=== PATIENT | female | born 1995 | race Caucasian/White ===

== ENCOUNTER → 2017-12-05 | Outpatient (CLI) | payer BC ==
--- NOTE | 2017-12-05 16:44 | Diagnostic Imaging Report ---
EXAM: MRI left foot without contrast. DATE: 12/05/2017. INDICATION: 21-year-old female, mass in the region of the left great toe. COMPARISON: None available. TECHNIQUE: Multiple noncontrast MRI sequences of the left foot were obtained. FINDINGS: There is a volar soft tissue mass which is similar in signal intensity to skeletal muscle on T1-weighted sequence and is T2 hyperintense with internal bands of low signal that measures approximately 2.7 x 1.5 cm in axial dimension and 1.7 cm in [id number] extent. The mass directly abuts the volar aspect of the first digit flexor tendon. There is no identified cortical or otherwise noted bone destruction. There is no abnormal signal in the adjacent bone marrow. There is no additional identified soft tissue mass. There is no joint effusion. Joint spaces appear well preserved. The bone marrow signal is unremarkable. Specifically, there is no identified bone lesion. There is no acute fracture. There is no evidence of stress reaction. The Lisfranc ligament proper is intact. The visualized flexor tendons are otherwise intact. The visualized peroneal tendons are intact. The visualized portions of the anterior extensor tendons are intact. IMPRESSION: 1. 2.7 x 1.5 x 1.7 cm mass within the volar soft tissues subjacent to and abutting the volar aspect of the first digit flexor tendon. Although post contrast imaging is not obtained, the mass appears highly likely solid. A giant cell tumor of the tendon sheath is included in the differential diagnosis, particularly given the location. Additional benign and malignant soft tissue neoplasms are in the differential diagnosis. Biopsy and/or excision recommended for definitive diagnosis. Dictated by: Dictated on workstation # [id number]
== END ==
LOC: RAD 14:58
PROVIDERS: ATTEND Orthopaedic Surgery
DX: S80.01XA Contusion of right knee, initial encounter (principal); R22.42 Localized swelling, mass and lump, left lower limb

== ENCOUNTER 2018-10-15 12:35 | Emergency (ER) | payer BC ==
[~2018-10-15] VITALS: Ht 165.1 cm; Wt 52.2 kg
--- NOTE | 2018-10-15 12:43 | ED General ---
General Stated Complaint: PASSED OUT Source of Information: Patient, EMS Exam Limitations: No Limitations History of Present Illness Date Seen by Provider: Oct 15, 2018 Time Seen by Provider: 12:41 Initial Comments To ER per EMS from home with reports of syncope. Patient states that she was sitting down on the couch when things started to go black, she then lost consciousness and states that she was told that she was out for about 60 seconds. At this time she feels mostly back to normal but still generally weak. She denies any sensation of palpitations or tachycardia prior to the syncopal event. No headache nausea vomiting or shortness of breath. 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 Adams. Primary care is Dr. Mora. She has been pretty nauseated for the past week, EMS gave Zofran in route to the hospital and that is now better controlled. No diarrhea and no abdominal pain. No fever or chills. Timing/Duration: 1/2 Hour Severity: Moderate Associated Systoms: Malaise, Syncope Allergies and Home Medications Allergies Coded Allergies: No Allergy Information Available (Unverified , 08/05/15) Patient Home Medication List Home Medication List Reviewed: Yes Review of Systems Review of Systems Constitutional: see HPI EENTM: see HPI Respiratory: no symptoms reported Cardiovascular: no symptoms reported Genitourinary: no symptoms reported Musculoskeletal: see HPI Skin: no symptoms reported Psychiatric/Neurological: No Symptoms Reported Hematologic/Lymphatic: No Symptoms Reported Physical Exam Vital Signs Vital Signs - First Documented 10/15/18 12:37 Temp 97.5 Pulse 96 Resp 16 B/P (MAP) 95/59 (71) Pulse Ox 99 O2 Delivery Room Air Capillary Refill : Height, Weight, BMI Height: 5'5.00" Weight: 111lbs. oz. 50.727294jo; BMI Method: General Appearance: No Apparent Distress, WD/WN Eyes: Bilateral Eye Normal Inspection, Bilateral Eye PERRL, Bilateral Eye EOMI HEENT: PERRL/EOMI, Normal ENT Inspection Neck: Full Range of Motion, Normal Inspection Respiratory: No Accessory Muscle Use, No Respiratory Distress Cardiovascular: Regular Rate, Rhythm, Normal Peripheral Pulses Gastrointestinal: Normal Bowel Sounds, Non Tender, Soft Extremity: Normal Capillary Refill, Normal Inspection Neurologic/Psychiatric: Alert, Oriented x3 Skin: Warm/Dry, Pallor Focused Exam Lactate Level 10/15/18 13:11: Lactic Acid Level 1.66 Lactic Acid Level Laboratory Tests Test 10/15/18 13:11 Lactic Acid Level 1.66 MMOL/L (0.50-2.00) Progress/Results/Core Measures Suspected Sepsis SIRS Temperature: Pulse: Respiratory Rate: Laboratory Tests 10/15/18 12:45: White Blood Count 23.8H Blood Pressure / Mean: 10/15/18 13:11: Lactic Acid Level 1.66 Laboratory Tests 10/15/18 12:45: Creatinine 0.70, Platelet Count 162, Total Bilirubin 0.6 Results/Orders Lab Results Laboratory Tests Test 10/15/18 12:45 10/15/18 13:11 10/15/18 13:46 Range/Units White Blood Count 23.8 H 4.3-11.0 10^3/uL Red Blood Count 2.35 L 4.35-5.85 10^6/uL Hemoglobin 7.8 L 11.5-16.0 G/DL Hematocrit 23 L 35-52 % Mean Corpuscular Volume 98 80-99 FL Mean Corpuscular Hemoglobin 33 25-34 PG Mean Corpuscular Hemoglobin Concent 34 32-36 G/DL Red Cell Distribution Width 18.6 H 10.0-14.5 % Platelet Count 162 130-400 10^3/uL Mean Platelet Volume 9.6 7.4-10.4 FL Neutrophils (%) (Auto) 98 H 42-75 % Lymphocytes (%) (Auto) 2 L 12-44 % Monocytes (%) (Auto) 0 0-12 % Eosinophils (%) (Auto) 0 0-10 % Basophils (%) (Auto) 0 0-10 % Neutrophils # (Auto) 23.4 H 1.8-7.8 X 10^3 Lymphocytes # (Auto) 0.4 L 1.0-4.0 X 10^3 Monocytes # (Auto) 0.0 0.0-1.0 X 10^3 Eosinophils # (Auto) 0.0 0.0-0.3 10^3/uL Basophils # (Auto) 0.0 0.0-0.1 10^3/uL Neutrophils % (Manual) 97 % Lymphocytes % (Manual) 1 % Band Neutrophils 2 % Hypersegmented Neutrophils MODERATE Toxic Granulation 3+ Blood Morphology Comment NORMAL Sodium Level 138 135-145 MMOL/L Potassium Level 3.3 L 3.6-5.0 MMOL/L Chloride Level 103 98-107 MMOL/L Carbon Dioxide Level 23 21-32 MMOL/L Anion Gap 12 5-14 MMOL/L Blood Urea Nitrogen 14 7-18 MG/DL Creatinine 0.70 0.60-1.30 MG/DL Estimat Glomerular Filtration Rate > 60 BUN/Creatinine Ratio 20 Glucose Level 113 H 70-105 MG/DL Calcium Level 8.8 8.5-10.1 MG/DL Corrected Calcium 8.6 8.5-10.1 MG/DL Total Bilirubin 0.6 0.1-1.0 MG/DL Aspartate Amino Transf (AST/SGOT) 64 H 5-34 U/L Alanine Aminotransferase (ALT/SGPT) 71 H 0-55 U/L Alkaline Phosphatase 67 40-136 U/L Total Protein 6.2 L 6.4-8.2 GM/DL Albumin 4.2 3.2-4.5 GM/DL Lactic Acid Level 1.66 0.50-2.00 MMOL/L Urine Color YELLOW Urine Clarity CLEAR Urine pH 5 5-9 Urine Specific Gilbert 1.025 H 1.016-1.022 Urine Protein 2+ H NEGATIVE Urine Glucose (UA) NEGATIVE NEGATIVE Urine Ketones NEGATIVE NEGATIVE Urine Nitrite NEGATIVE NEGATIVE Urine Bilirubin NEGATIVE NEGATIVE Urine Urobilinogen NORMAL NORMAL MG/DL Urine Leukocyte Esterase 1+ H NEGATIVE Urine RBC (Auto) 1+ H NEGATIVE Urine RBC NONE /HPF Urine WBC 5-10 H /HPF Urine Squamous Epithelial Cells 2-5 /HPF Urine Crystals NONE /LPF Urine Bacteria MODERATE H /HPF Urine Casts NONE /LPF Urine Mucus LARGE H /LPF Urine Culture Indicated YES My Orders Orders - LINDA CHAIDEZ APRN Cbc With Automated Diff (10/15/18 12:40) Comprehensive Metabolic Panel (10/15/18 12:40) Ua Culture If Indicated (10/15/18 12:40) Iv Heplock-Insert (Order) (10/15/18 12:40) Ekg Tracing (10/15/18 12:40) Manual Differential (10/15/18 12:45) General/Regular (10/15/18 Lunch) Blood Culture (10/15/18 13:33) Lactic Acid Analyzer (10/15/18 13:33) Ns Iv 1000 Ml (Sodium Chloride 0.9%) (10/15/18 13:45) Potassium Chloride (Tablet) (K Dur Table (10/15/18 13:45) Urine Culture (10/15/18 13:46) Ceftriaxone For Iv Use (Rocephin For I (10/15/18 14:30) Medications Given in ED Current Medications Medications Dose Ordered Sig/Enmanuel Route Start Time Stop Time Status Last Admin Dose Admin Ceftriaxone Sodium 1000 mg/ Sodium Chloride 50 ml @ 100 mls/hr ONCE ONCE IV 10/15/18 14:30 10/15/18 14:59 10/15/18 14:30 100 MLS/HR Potassium Chloride 40 meq ONCE ONCE PO 10/15/18 13:45 10/15/18 13:46 DC 10/15/18 13:59 40 MEQ Vital Signs/I&O 10/15/18 12:37 Temp 97.5 Pulse 96 Resp 16 B/P (MAP) 95/59 (71) Pulse Ox 99 O2 Delivery Room Air Capillary Refill : Departure Communication (Admissions) 1430-blood pressure reached a low of 85/55 while here in the emergency room. After 1 L fluid bolus she is currently at 116/50. Heart rate 92 no ectopy. Oxygen saturation 100% room air and she is afebrile. She is noted to have leukocytosis on CBC but she had a Neulasta injection yesterday. Her hemoglobin on Tuesday of this past week was 8.4, her platelet count was 127. Her AST and ALT were both 27 at that time. She is feeling better but still not back to normal, a bit weaker than usual. I spoke with the on-call hematology oncology physician at the [facility]. States that he would be happy to take the patient in transfer if we felt that was necessary but she could ultimately be discharged home as well. I discussed with the patient and her mother what they would wish to do. They state that she does have an appointment tomorrow at the [facility] for repeat lab work. They're happy to go up today if necessary but are also satisfied with waiting until tomorrow. We devised a plan to observe her here in the emergency room after another hour or so, if blood pressure stays steady and symptoms continue to improve we will discharge to home. If anything changes we will plan with proceeding with transfer to the [facility]. 1427- blood cultures and urine culture is pending. Blood pressure 98/60. Mother states that this is pretty typical for the patient's blood pressure. I discussed the case with Dr. Bernardo. I'll give Rocephin for the urinary tract infection, mother states she does not need a prescription as she has Levaquin at home. Dr. Bernardo agrees with plan of care now that the patient has eaten she states that she feels back to baseline. Impression Primary Impression: Syncope Qualified Codes: R55 - Syncope and collapse Disposition: HOME, SELF-CARE Condition: Stable Departure-Patient Inst. Decision time for Depature: 13:29 Referrals: ENRRIQUE MORA MD (PCP/Family) Primary Care Physician Patient Instructions: Syncope (Fainting) (DC) Add. Discharge Instructions: 1. Start your Levaquin tomorrow morning. Return to the emergency room for any recurrent passing out, or anything else that concerns you. Otherwise keep her appointment with the [facility] tomorrow to repeat labs. LINDA CHAIDEZ APRN Oct 15, 2018 12:43
[2018-10-15 12:57] LABS: BASOPHILS % (AUTO) 0 % (0-10); EOSINOPHILS % (AUTO) 0 % (0-10); HEMATOCRIT 23 % (35-52); HEMOGLOBIN 7.8 G/DL (11.5-16.0); LYMPHOCYTES # (AUTO) 0.4 X 10^3 (1.0-4.0); LYMPHOCYTES % (AUTO) 2 % (12-44); MEAN CORPUSCULAR HEMOGLOBIN 33 PG (25-34); MEAN CORPUSCULAR HGB CONC 34 G/DL (32-36); MEAN CORPUSCULAR VOLUME 98 FL (80-99); MEAN PLATELET VOLUME 9.6 FL (7.4-10.4); MONOCYTES % (AUTO) 0 % (0-12); NEUTROPHILS # (AUTO) 23.4 X 10^3 (1.8-7.8); NEUTROPHILS % (AUTO) 98 % (42-75); PLATELET COUNT 162 10^3/uL (130-400); RED CELL DISTRIBUTION WIDTH 18.6 % (10.0-14.5); WHITE BLOOD COUNT 23.8 10^3/uL (4.3-11.0)
[2018-10-15 13:17] LABS: ALANINE AMINOTRANSFERASE 71 U/L (0-55); ALBUMIN 4.2 GM/DL (3.2-4.5); ALKALINE PHOSPHATASE 67 U/L (40-136); BILIRUBIN,TOTAL 0.6 MG/DL (0.1-1.0); BUN/CREATININE RATIO 20; CALCIUM 8.8 MG/DL (8.5-10.1); CARBON DIOXIDE 23 MMOL/L (21-32); CHLORIDE 103 MMOL/L (98-107); GFR ESTIMATED > 60; GLUCOSE 113 MG/DL (70-105); POTASSIUM 3.3 MMOL/L (3.6-5.0); SODIUM 138 MMOL/L (135-145); TOTAL PROTEIN 6.2 GM/DL (6.4-8.2)
--- NOTE | 2018-10-15 13:20 | NUR ---
FOOD TRAY DELIVERED TO PT ROOM.
[2018-10-15 13:37] LABS: BAND NEUTROPHILS 2 %; LYMPHOCYTES % (MANUAL) 1 %; NEUTROPHILS % (MANUAL) 97 %
[2018-10-15 13:38] LABS: RBC MORPH NORMAL
[2018-10-15 13:39] LABS: HYPERSEGMENTED NEUT MODERATE; TOXIC GRANULATION/VACUOLAZATIO 3+
[2018-10-15] MEDS ORDERED: NS IV 1000 ML 1,000 ML IV SCH (13:45)
[2018-10-15] MEDS ORDERED: KCL 20 MEQ TAB (K-DUR) PO ONE (13:45)
[2018-10-15 13:52] LABS: BILIRUBIN,URINE NEGATIVE (NEGATIVE); CLARITY,URINE CLEAR; COLOR,URINE YELLOW; GLUCOSE, URINE (UA) NEGATIVE (NEGATIVE); KETONES,URINE NEGATIVE (NEGATIVE); LEUKOCYTE ESTERASE ,URINE 1+ (NEGATIVE); NITRITE,URINE NEGATIVE (NEGATIVE); PH,URINE 5 (5-9); PROTEIN,URINE 2+ (NEGATIVE); UROBILINOGEN,URINE NORMAL (NORMAL)
[2018-10-15 14:09] LABS: BACTERIA,URINE MODERATE /HPF
[2018-10-15] MEDS ORDERED: cefTRIAXone FOR IV USE 1,000 MG in NS (IVPB) 50 ML IV ONE (14:30)
[2018-10-15 15:04] VITALS: BP 101/59
== END 2018-10-15 15:04 | disposition home or self-care (01) ==
LOC: EDUNIT# 12:35 → ER 12:36
DX: R55 Syncope and collapse (principal); C40.32 Malignant neoplasm of short bones of left lower limb
CPT/HCPCS: 36415; 80053; 81000; 83605; 85007; 85027; 87040; 87088; 93005; 96361; 96365

== ENCOUNTER 2018-12-04 15:39 | Emergency (ER) | payer BC, MEDICAID ==
[~2018-12-04] VITALS: Ht 165.1 cm; Wt 54.4 kg
--- OUTSIDE RECORDS SUMMARY | 2018-12-04 16:06 | XMS REPORT | Encounter Summary ---
Author Author [facility] Organization [facility] Address Unknown Phone Unavailable Care Team Providers Care Post Production Assistant Name Role Phone Karyn Anderson MD PCP Samuel Kelly DPM 21 Roe Aleman DO Unavailable Reason for Visit * Reason Comments Fever Encounter Details Care Team Description Date [place] [address] [address] Fever 12/04/2018 Telephone [facility] - OP Exam [address] [address] Social History Date Tobacco Use Types Packs/Day Years Used Never Smoker Smokeless Tobacco: Never Used Alcohol Use Drinks/Week oz/Week Comments No Sex Assigned at Date Recorded Not on file Industry Job Start Date Occupation Not on file Not on file Not on file Travel End Travel History Travel Start No recent travel history available. as of this encounter Functional Status Date of Assessment Functional Status Response 11/30/2018 Does the patient have a hearing impairment: No 11/30/2018 Does the patient have a visual impairment: Yes 11/30/2018 Does the patient have impaired ambulation: No 11/30/2018 Does the patient have an activity of daily living No (ADL) impairment: 11/30/2018 Does the patient have an instrumental activity of No daily living (IADL) impairment: Date of Assessment Cognitive Status Response 11/30/2018 Does the patient have a cognitive impairment: No as of this encounter Miscellaneous Notes * Telephone Encounter - Ailin Virgen RN - 12/04/2018 3:02 PM CDT I called Loren, Tyler's mom, after receiving page that Tyler has a fever, nausea, vomiting, diarrhea and unable to eat or drink or take any of her medications. I spoke with mom and Tyler has fever of 101.4 with above symptoms. The entire family has all of these symptoms as well. Reviewed with and patient to go to local ER for evaluation and fluids. in this encounter Plan of Treatment Not on fileas of this encounter Visit Diagnoses Not on filein this encounter
--- OUTSIDE RECORDS SUMMARY | 2018-12-04 16:06 | XMS REPORT | Encounter Summary ---
Author Author [facility] Organization [facility] Address Unknown Phone Unavailable Care Team Providers Care [employer] Revenue Officer Name Role Phone Karyn Anderson MD PCP Samuel Kelly DPM 21 Roe Aleman DO Unavailable Encounter Details Care Team Description Date [place] [address] [address] Arrived 11/30/2018 [facility] - OP Lab [address] [address] Social History Date Tobacco Use Types Packs/Day [...] cognitive impairment: No as of this encounter Plan of Treatment Not on fileas of this encounter Procedures Comments Procedure Name Priority Date/Time Associated Diagnosis CBC AND DIFF Routine 11/30/2018 Rodarte's sarcoma (HCC) 11:26 AM CDT in this encounter Results * CBC AND DIFF (11/30/2018 11:26 AM CDT) White Blood Cells 2.1 (L) 4.5 - 11.0 K/UL [facility] [place] RBC 2.33 (L) 4.0 - 5.0 M/UL [facility] Hemoglobin 7.7 (L) 12.0 - 15.0 GM/DL [facility] Hematocrit 22.3 (L) 36 - 45 % [facility] MCV 95.8 80 - 100 FL [facility] [place] MCH 33.1 26 - 34 PG [facility] [place] MCHC 34.5 32.0 - 36.0 G/DL [facility] RDW 21.2 (H) 11 - 15 % [facility] Platelet Count 45 (L) 150 - 400 K/UL [facility] MPV 8.0 7 - 11 FL [facility] Segmented Neutrophils 29 (L) 41 - 77 % [facility] [place] Bands 10 0 - 10 % [facility] Lymphocytes 20 (L) 24 - 44 % [facility] [place] Monocytes 38 (H) 4 - 12 % [facility] [place] Eosinophil 2 0 - 5 % [facility] [place] Basophil 1 0 - 2 % [facility] [place] HYPO PRESENT [facility] POLY PRESENT [facility] Teardrop PRESENT [facility] [place] Platelet Estimate MOD DEC [facility] [place] Absolute Neutrophil Count 0.82 (L) 1.8 - 7.0 K/UL [facility] Specimen Blood Performing Organization Address City/State/Zipcode Phone Number [facility] [address] [place] [address] in this encounter Visit Diagnoses Diagnosis 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
--- OUTSIDE RECORDS SUMMARY | 2018-12-04 16:06 | XMS REPORT | Encounter Summary ---
Author Author [facility] Organization [facility] Address Unknown Phone Unavailable Care Team Providers Care Wind Field Manager Name Role Phone Karyn Anderson MD PCP Samuel Kelly DPM 21 Roe Aleman DO Unavailable Encounter Details Care Team Description Date [place] [address] [address] 11/30/2018 Orders Only [facility] Center - OP Exam [address] [address] Social History Date Tobacco Use [...]
--- OUTSIDE RECORDS SUMMARY | 2018-12-04 16:06 | XMS REPORT | Clinical Summary ---
Author Author [facility] Organization [facility] Address Unknown Phone Unavailable Care Team Providers Care Patient Access Specialist Name Role Phone Karyn Anderson MD PCP Samuel Kelly DPM 21 Roe Aleman DO Unavailable Source Comments Some departments are not documenting in the electronic medical record. If you do not see the information that you expected, contact Release of Information in the Health Information Management department at [phone] for further assistance in locating additional records.[facility] Allergies Comments Active Allergy Reactions Severity Noted Date Amoxicillin NAUSEA AND Low 04/21/2018 VOMITING Penicillins NAUSEA AND Low 11/19/2014 VOMITING Medications End Date Status Medication Sig Dispensed Refills Start Date Active ibuprofen (ADVIL) 200 mg Take 200 mg 0 tablet by mouth every 6 hours as needed. Active oxyCODONE/acetaminophen Take 1-2 48 tablet 0 (PERCOCET; ENDOCET; tablets by 8 ROXICET) 5/325 mg tablet mouth every 6 hours as needed for Pain Earliest Fill Date: 04/24/18 Active acetaminophen (TYLENOL) Take 325 mg 0 325 mg tablet by mouth every 4 hours as needed for Pain. Active LORazepam (ATIVAN) 0.5 mg Take one 60 tablet 1 tablet tablet by 8 mouth every 6 hours as needed for Nausea (anxiety and insomnia). Active loratadine (CLARITIN) 10 Take 10 mg by 0 mg tablet mouth every morning. Active GLUTAMINE PO Take 1,000 mg 0 by mouth twice daily. Active pyridoxine HCl (vitamin Take 100 mg 0 B6) (VITAMIN B-6 PO) by mouth daily. Active other medication 1 Dose at 0 bedtime daily. CBD 2-4 ML Active traZODone (DESYREL) 50 mg Take one 30 tablet 3 tablet tablet by 8 mouth at bedtime as needed for Sleep. Active doxycycline (VIBRAMYCIN) Take 100 mg 0 100 mg tablet by mouth 8 twice daily. Active lidocaine 2%/zinc oxide Apply 30 g 1 40%(#)Indications: liberally to 8 Rodarte's sarcoma (HCC) perianal area as needed Active acyclovir (ZOVIRAX) 800 Take one 90 tablet 3 mg tabletIndications: tablet by 8 Rodarte's sarcoma (HCC) mouth every 8 hours. Active fluconazole (DIFLUCAN) Take one 10 tablet 1 200 mg tabletIndications: tablet by 8 Mouth lesion mouth daily. Active prednisone (DELTASONE) 50 Take one 5 tablet 3 mg tablet tablet by 9 mouth daily with breakfast. Active OLANZapine (ZYPREXA) 10 TAKE 1 TABLET 12 tablet 5 mg tabletIndications: BY MOUTH AT 9 Rodarte's sarcoma (HCC) BEDTIME DAILY. ON DAYS 1-4 OF EACH CYCLE Active pantoprazole DR Take one 90 tablet 3 (PROTONIX) 40 mg tablet tablet by 9 mouth daily. Active ondansetron (ZOFRAN) 8 mg Take one 30 tablet 5 tabletIndications: tablet by 9 Rodarte's sarcoma (HCC) mouth every 8 hours as needed (nausea and vomiting). Active DIPH/LIDO/ANTACID/NYSTATI Swish and 240 mL 3 N 1:1:1:1 SUSP (COMPOUND) Spit 30 mL by 9 mouth as directed three times daily before meals. Active prochlorperazine maleate Take one 30 tablet 3 (COMPAZINE) 10 mg tablet tablet by 9 mouth every 6 hours as needed for Nausea or Vomiting. Active levoFLOXacin (LEVAQUIN) Take one 10 tablet 3 500 mg tablet tablet by 9 mouth daily. 11/28/2018 Discontinued ondansetron (ZOFRAN) 8 mg Take one 30 tablet 5 tabletIndications: tablet by 8 Rodarte's sarcoma (HCC) mouth every 8 hours as needed (nausea and vomiting). 11/30/2018 Discontinued levoFLOXacin (LEVAQUIN) Take one 10 tablet 0 500 mg tablet tablet by 8 mouth daily. 11/21/2018 Discontinued prochlorperazine maleate TAKE 1 TABLET 30 tablet 0 (COMPAZINE) 10 mg tablet BY MOUTH 9 EVERY 6 HOURS NEEDED FOR NAUSEA OR VOMITING 11/30/2018 Discontinued prochlorperazine maleate TAKE 1 TABLET 30 tablet 0 (COMPAZINE) 10 mg tablet BY MOUTH 9 EVERY 6 HOURS NEEDED FOR NAUSEA OR VOMITING Active Problems Problem Noted Date Canker sores oral 12/01/2018 Overview: On acyclovir tid now Add velvet glove for numbing effect, encourage hydration; hopeful it will improve as her immune system bounces back over next couple days Hold on last cycle of chemo until week of 12/11/18 Genital ulcer, female 07/24/2018 Overview: Likely due to myelosuppression associated with chemo Now on proph acyclovir BID throughout chemo - the few extra weeks around the holidays has resolved this for now, but likely to recur as we continue on chemo in the near future 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 Samuel Kelly and Dr. Karyn Anderson in reference to a lesion found in the left great toe. The patient noticed a very small nodule of her great toe about 1 year ago which she did not pay much attention to. She did move away to college and monitored the lesion. She did return home and felt the mass more than doubled in size. An MRI left foot performed 12/05/17 revealed a 2.7 x 1.5 x 1.7cm mass within the volar soft tissues subjacent to and abutting the volar aspect of the first digit flexor tendon thought potentially to be a giant cell tumor. Dr. 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 Therefore, she was referred to Dr Triplett. On staging scans done 04/14/18, she was found to have 1.5 cm noncalcified pleural-based nodule within the lateral left lower lobe suspicious for pulmonary metastasis with additional tiny subcentimeter nodule within the left upper lobe, small sclerotic lesion within the T8 vertebral body and the right femoral head, as well as thickening of the endometrium with a 1.6 cm rounded cystic-appearing process within the endometrial cavity likely representing a 1st trimester intrauterine with a gestational sac. The patient and family were advised for her to undergo amputation of the left great toe, undertaken 04/27/18, as this tumor was starting to encroach on skin and was uncomfortable for the patient. CIC rearrangement found. She was educated as to the fact that by virtue of this being a malignant small round blue cell tumor the likelihood that she will require chemotherapy (which in first trimester is likely abortogenic is very high). She went to an cost analyst who concurred with the decision to proceed with the surgical resection and chemotherapy for the goal of attacking the disease lianna. She is not very sikhism, and was okay with aborting the , due to her own health concerns; this happened mid Apr 2018. She was interested in fertility preservation techniques, but when she heard about the delay of treatment and the costs required, she opted against it. 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 Staging PET did not show any hypermetabolic activity in the R femoral head or T8 lesion, but did show activity in the two lung nodules. Pre-chemo echo was done 04/28/18 - EF 55%. Rodriguez cath was placed. She started first cycle of chemo, VAC/IE alternating, on 05/08/18. She is attempting interval compressed cycles, but cytopenias have limited that. Admitted to [facility] after 5th cycle, 3rd VAC, due to persistent neutropenic fevers, exquisitely sensitive rash on hands/feet. CT chest done while in-house showed response in both the RADHA (8mm --> 6mm) and L lateral pleural based lung masses (near completely resolved). The T8 lesion was stable, again suggesting less likely to be associated with actual cancer. Sarcoma tumor board discussions at this time suggested continuing chemo for now, but look at consolidative techniques in the future (surgery vs radiation?) She comes back in after cycle of dose-adjusted alternating VAC/IE, (dose-adjusted cytoxan to 1g/m2; etoposide to 100mg/m2 day 1-4 and ifos 1800mg/m2 day 1-4 due to significant cytopenias). In with mother. Planned to finish 14th cycle next week, but her canker sores this week have really set her back. 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 Restaging PET 10/24/18 shows resolution of lateral L lung mass, yet still a small mildly active RADHA nodule; no other obvious signs of disease elsewhere. Echo Oct 2018 shows preserved EF 60%. 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 Reviewed epidemiology, risk factors, staging and prognosis (both of recurrence risk and of survival), then subsequent treatment strategies. Standard of care option is regimen using alternating VAC/IE + G-CSF support, with attempts at interval compression to q2week cycles as tolerated. Side effects have included fatigue, bone marrow suppression, need for blood/platelet transfusions, nausea, hair loss, genital ulcers, tender erythematous rash on hands/feet, admit for neutropenic fevers. Other sxs possible include hemorrhagic cystitis, cardiotoxicity and secondary cancers, amongst others. Hold cycle #14 until 12/11/18, which will be her last cycle for now due to tolerability. Dose-reduced strategy is to allow her to continue pushing forward with chemo. Ordered levaquin to have at home if she starts running fevers. Acyclovir for proph against more ulcer outbreaks. Add velvet glove for mouth sores. Discussed with the patient and all questions fully answered. She will call me if any problems arise. Resolved Problems Problem Noted Date Resolved Date Sarcoma 04/04/2018 05/08/2018 Overview: Added automatically from request for surgery [id number] Encounters Care Team Description Date Type Specialty Isreal Adams MD Fever 12/04/2018 Telephone Oncology Isreal Adams MD Drug-induced anemia (Primary Dx); Canker sores oral; Rodarte's sarcoma (HCC) 11/30/2018 Office Visit Oncology Isreal Adams MD Arrived 11/30/2018 Hospital Oncology Encounter Isreal Adams MD Arrived 11/30/2018 Hospital Lab Encounter Isreal Adams MD 11/30/2018 Orders Only Oncology Isreal Adams MD Rodarte's sarcoma (HCC) 11/28/2018 Refill Oncology Kimberly Salgado, SOCIAL SERVICES DIRECTOR Rodarte's sarcoma (HCC) (Primary Dx) 11/27/2018 Office Visit Oncology Kimberly Salgado, SOCIAL SERVICES DIRECTOR Arrived 11/27/2018 Hospital Lab Encounter Kimberly Salgado, SOCIAL SERVICES DIRECTOR Arrived 11/27/2018 Hospital Oncology Encounter Isreal Adams MD 11/21/2018 Hospital Oncology Encounter Isreal Adams MD 11/21/2018 Refill Oncology Isreal Adams MD Rodarte's tumor (HCC) (Primary Dx); Rodarte's sarcoma (HCC) 11/20/2018 Office Visit Oncology Isreal Adams MD 11/20/2018 Hospital Lab Encounter Isreal Adams MD 11/20/2018 Hospital Oncology Encounter Isreal Adams MD 11/20/2018 Orders Only Oncology Kimberly Salgado, SOCIAL SERVICES DIRECTOR Rodarte's sarcoma (HCC) (Primary Dx) 11/13/2018 Office Visit Oncology Kimberly Salgado, SOCIAL SERVICES DIRECTOR 11/13/2018 Hospital Lab Encounter Kimberly Salgado, SOCIAL SERVICES DIRECTOR 11/13/2018 Hospital Oncology Encounter Isreal Adams MD 11/10/2018 Hospital Oncology Encounter Kimberly Salgado, SOCIAL SERVICES DIRECTOR 11/09/2018 Hospital Lab Encounter Kimberly Salgado, SOCIAL SERVICES DIRECTOR 11/09/2018 Hospital Oncology Encounter Isreal Adams MD Drug-induced anemia (Primary Dx) 11/09/2018 Orders Only Oncology Isreal Adams MD 11/09/2018 Orders Only Oncology Kimberly Salgado, SOCIAL SERVICES DIRECTOR 11/08/2018 Hospital Lab Encounter Kimberly Salgado, SOCIAL SERVICES DIRECTOR 11/08/2018 Hospital Oncology Encounter Kimberly Salgado, SOCIAL SERVICES DIRECTOR 11/07/2018 Hospital Oncology Encounter Kimberly Salgado, SOCIAL SERVICES DIRECTOR Rodarte's sarcoma (HCC) (Primary Dx) 11/06/2018 Office Visit Oncology Kimberly Salgado, SOCIAL SERVICES DIRECTOR 11/06/2018 Hospital Oncology Encounter Kimberly Salgado, SOCIAL SERVICES DIRECTOR 11/06/2018 Hospital Lab Encounter Mehreen Maharaj 11/06/2018 Documentation Oncology Mehreen Maharaj 11/03/2018 Documentation Oncology Kimberly Salgado, SOCIAL SERVICES DIRECTOR Rodarte's sarcoma (HCC) (Primary Dx) 10/30/2018 Office Visit Oncology Isreal Adams MD 10/30/2018 Hospital Oncology Encounter Kimberly Salgado, SOCIAL SERVICES DIRECTOR 10/30/2018 Hospital Lab Encounter Isreal Adams MD 10/26/2018 Hospital Oncology Encounter Isreal Adams MD Rodarte's sarcoma (HCC) (Primary Dx) 10/25/2018 Office Visit Oncology Isreal Adams MD 10/25/2018 Hospital Oncology Encounter Isreal Adams MD Rodarte's sarcoma (HCC) 10/25/2018 Refill Oncology Jessie Coyne MA 10/25/2018 Clinical Oncology Support Isreal Adams MD 10/24/2018 Hospital Cardiology Encounter Isreal Adams MD 10/24/2018 Hospital Lab Encounter Isreal Adams MD 10/24/2018 Hospital Radiology Encounter Isreal Adams MD 10/24/2018 Hospital Oncology Encounter Isreal Adams MD 10/23/2018 Orders Only Oncology Isreal Adams MD 10/20/2018 Refill Oncology Isreal Adams MD Hamlin, Julie, SOCIAL SERVICES DIRECTOR Antineoplastic chemotherapy induced anemia (Primary Dx); Rodarte's sarcoma (HCC) 10/16/2018 Office Visit Oncology Isreal Adams MD 10/16/2018 Hospital Oncology Encounter Isreal Adams MD 10/16/2018 Hospital Lab Encounter Isreal Adams MD Blood Transfusion 10/16/2018 Telephone Oncology Isreal Adams MD 10/14/2018 Hospital Oncology Encounter Isreal Adams MD 10/13/2018 Hospital Oncology Encounter Isreal Adams MD 10/12/2018 Hospital Oncology Encounter Isreal Adams MD 10/11/2018 Hospital Oncology Encounter Isreal Adams MD Rodarte's sarcoma (HCC) (Primary Dx); Genital ulcer, female 10/10/2018 Office Visit Oncology Isreal Adams MD 10/10/2018 Hospital Oncology Encounter Isreal Adams MD 10/10/2018 Hospital Lab Encounter Mehreen Maharaj 10/10/2018 Documentation Oncology Isreal Adams MD 10/05/2018 Orders Only Oncology Kimberly Salgado, SOCIAL SERVICES DIRECTOR Rodarte's sarcoma (HCC) (Primary Dx) 10/02/2018 Office Visit Oncology Kimberly Salgado, SOCIAL SERVICES DIRECTOR 10/02/2018 Hospital Oncology Encounter Kimberly Salgado, SOCIAL SERVICES DIRECTOR 10/02/2018 Hospital Lab Encounter Isreal Adams MD Critical Result 10/02/2018 Telephone Oncology Isreal Adams MD Rodarte's sarcoma (HCC) 09/29/2018 Refill Oncology Isreal Adams MD Appointment 09/28/2018 Telephone Oncology Isreal Adams MD 09/27/2018 Hospital Oncology Encounter Isreal Adams MD 09/26/2018 Hospital Oncology Encounter Isreal Adams MD Genital ulcer, female; Rodarte's sarcoma (HCC) 09/25/2018 Office Visit Oncology Isreal Adams MD 09/25/2018 Hospital Oncology Encounter Isreal Adams MD 09/25/2018 Hospital Lab Encounter FátimaMehreen melgar 09/25/2018 Documentation Oncology Isreal Adams MD 09/22/2018 Orders Only Oncology Isreal Adams MD 09/18/2018 Hospital Lab Encounter Isreal Adams MD 09/18/2018 Hospital Oncology Encounter Isreal Adams MD 09/11/2018 Hospital Oncology Encounter Isreal Adams MD 09/11/2018 Hospital Lab Encounter Isreal Adams MD Transfusion 09/07/2018 Telephone Oncology from Last 3 Months Family History Medical History Relation Name Comments High Cholesterol Maternal Grandfather Hypertension Maternal Grandfather Asthma Maternal Uncle Migraines Mother Cancer-Breast Other Cancer-Colon Other Cancer-Lung Other Arthritis-rheumatoid Paternal Uncle Depression Paternal Uncle High Cholesterol Paternal Uncle Migraines Paternal Uncle Relation Name Status Comments Father Alive Maternal Grandfather Alive Maternal Uncle Alive Mother Alive Other Paternal Uncle Alive Social History Date Tobacco Use Types Packs/Day Years Used Never Smoker Smokeless Tobacco: Never Used Alcohol Use Drinks/Week oz/Week Comments No Sex Assigned at Date Recorded Not on file Industry Job Start Date Occupation Not on file Not on file Not on file Travel End Travel History Travel Start No recent travel history available. Last Filed Vital Signs Time Taken Vital Sign Reading 11/30/2018 11:34 AM CDT Blood Pressure 109/56 11/30/2018 11:34 AM CDT Pulse 96 11/30/2018 11:34 AM CDT Temperature 37.1 C (98.8 F) 11/30/2018 11:34 AM CDT Respiratory Rate 16 11/30/2018 11:34 AM CDT Oxygen Saturation 100% - Inhaled Oxygen - Concentration 11/30/2018 11:34 AM CDT Weight 54.4 kg (120 lb) 11/30/2018 11:34 AM CDT Height 165.1 cm (5' 5") 11/30/2018 11:34 AM CDT Body Mass Index 19.97 Plan of Treatment Health Maintenance Due Date Last Done Comments PHYSICAL (COMPREHENSIVE) 12/15/2003 EXAM HPV VACCINES (1 - Female 12/15/2007 3-dose series) HIV SCREENING 12/15/2011 MENINGOCOCCAL VACCINE 2012 (ACWY,Menactra) (1 - 2-dose series) DTAP/TDAP VACCINES (1 - 2014 Tdap) CERVICAL CANCER SCREENING 2017 INFLUENZA VACCINE 04/19/2018 Implants Device Identifier Shelf Expiration Date Model / Serial / Lot Implanted Type Area Manufactur [id number] 09/18/2019 [id number] / NA / [id number] Tray Catheter 9.5fr .036in 5cm Right: Chest CR BARD Sure[employer]uff [employer]man 2 Lumen - Sna Wall Implanted: Qty: 1 on 04/27/2018 by Maurice Jackson MD Procedures Comments Procedure Name Priority Date/Time Associated Diagnosis CBC AND DIFF Routine 11/30/2018 Rodarte's sarcoma (HCC) 11:26 AM CDT COMPREHENSIVE METABOLIC Routine 11/27/2018 Rodarte's sarcoma (HCC) PANEL 2:46 PM CDT CBC AND DIFF Routine 11/27/2018 Rodarte's sarcoma (HCC) 2:46 PM CDT CBC AND DIFF Routine 11/20/2018 Rodarte's tumor (HCC) 8:45 AM DCS ENGINEER COMPREHENSIVE METABOLIC Routine 11/20/2018 Rodarte's tumor (HCC) PANEL 8:45 AM DCS ENGINEER COMPREHENSIVE METABOLIC Routine 11/13/2018 Rodarte's sarcoma (HCC) PANEL 11:38 AM DCS ENGINEER CBC AND DIFF Routine 11/13/2018 Rodarte's sarcoma (HCC) 11:38 AM DCS ENGINEER POC GLUCOSE 11/10/2018 8:18 AM DCS ENGINEER CBC AND DIFF Routine 11/09/2018 Rodarte's sarcoma (HCC) 10:13 AM DCS ENGINEER URINALYSIS DIPSTICK Routine 11/08/2018 Rodarte's sarcoma (HCC) 10:12 AM DCS ENGINEER COMPREHENSIVE METABOLIC Routine 11/06/2018 Rodarte's sarcoma (HCC) PANEL 8:39 AM DCS ENGINEER CBC AND DIFF Routine 11/06/2018 Rodarte's sarcoma (HCC) 8:39 AM DCS ENGINEER COMPREHENSIVE METABOLIC Routine 10/30/2018 Rodarte's sarcoma (HCC) PANEL 8:17 AM DCS ENGINEER CBC AND DIFF Routine 10/30/2018 Rodarte's sarcoma (HCC) 8:17 AM DCS ENGINEER 2-D + DOPPLER Routine 10/24/2018 Rodarte's sarcoma (HCC) ECHOCARDIOGRAM 10:10 AM DCS ENGINEER NM PET SCAN WHOLEBODY Routine 10/24/2018 Rodarte's sarcoma (HCC) (HEAD-TOES) 8:13 AM DCS ENGINEER COMPREHENSIVE METABOLIC Routine 10/24/2018 Rodarte's sarcoma (HCC) PANEL 7:56 AM DCS ENGINEER CBC AND DIFF Routine 10/24/2018 Rodarte's sarcoma (HCC) 7:56 AM DCS ENGINEER POC GLUCOSE 10/24/2018 6:53 AM DCS ENGINEER COMPREHENSIVE METABOLIC Routine 10/16/2018 Rodarte's sarcoma (HCC) PANEL 12:35 PM DCS ENGINEER CBC AND DIFF Routine 10/16/2018 Rodarte's sarcoma (HCC) 12:35 PM DCS ENGINEER COMPREHENSIVE METABOLIC Routine 10/10/2018 Rodarte's sarcoma (HCC) PANEL 8:26 AM DCS ENGINEER CBC AND DIFF Routine 10/10/2018 Rodarte's sarcoma (HCC) 8:26 AM DCS ENGINEER COMPREHENSIVE METABOLIC Routine 10/02/2018 Rodarte's sarcoma (HCC) PANEL 2:47 PM DCS ENGINEER CBC AND DIFF Routine 10/02/2018 Rodarte's sarcoma (HCC) 2:47 PM DCS ENGINEER COMPREHENSIVE METABOLIC Routine 09/25/2018 Rodarte's sarcoma (HCC) PANEL 8:44 AM DCS ENGINEER CBC AND DIFF Routine 09/25/2018 Rodarte's sarcoma (HCC) 8:44 AM DCS ENGINEER CBC AND DIFF Routine 09/18/2018 Rodarte's sarcoma (HCC) 9:33 AM DCS ENGINEER COMPREHENSIVE METABOLIC Routine 09/18/2018 Rodarte's sarcoma (HCC) PANEL 9:33 AM DCS ENGINEER COMPREHENSIVE METABOLIC Routine 09/11/2018 Rodarte's sarcoma (HCC) PANEL 9:06 AM DCS ENGINEER CBC AND DIFF Routine 09/11/2018 Rodarte's sarcoma (HCC) 9:06 AM DCS ENGINEER from Last 3 Months Results * CBC AND DIFF (11/30/2018 11:26 AM CDT) Only the most recent of 14 results within the time period is included. White Blood Cells 2.1 (L) 4.5 - 11.0 K/UL [facility] [place] RBC 2.33 (L) 4.0 - 5.0 M/UL [facility] [place] Hemoglobin 7.7 (L) 12.0 - 15.0 GM/DL [facility] [place] Hematocrit 22.3 (L) 36 - 45 % [facility] [place] MCV 95.8 80 - 100 FL [facility] [place] MCH 33.1 26 - 34 PG [facility] [place] MCHC 34.5 32.0 - 36.0 G/DL [facility] RDW 21.2 (H) 11 - 15 % [facility] [place] Platelet Count 45 (L) 150 - 400 K/UL [facility] [place] MPV 8.0 7 - 11 FL [facility] [place] Segmented Neutrophils 29 (L) 41 - 77 % [facility] [place] Bands 10 0 - 10 % [facility] [place] Lymphocytes 20 (L) 24 - 44 % [facility] Monocytes 38 (H) 4 - 12 % [facility] Eosinophil 2 0 - 5 % [facility] Basophil 1 0 - 2 % [facility] HYPO PRESENT [facility] POLY PRESENT [facility] Teardrop PRESENT [facility] [place] Platelet Estimate MOD DEC [facility] [place] Absolute Neutrophil Count 0.82 (L) 1.8 - 7.0 K/UL [facility] Specimen Blood Performing Organization Address City/State/Zipcode Phone Number [facility] [id number] [place] [address] * COMPREHENSIVE METABOLIC PANEL (11/27/2018 2:46 PM CDT) Only the most recent of 12 results within the time period is included. Sodium 139 137 - 147 MMOL/L [facility] Potassium 3.6 3.5 - 5.1 MMOL/L [facility] Chloride 105 98 - 110 MMOL/L [facility] Glucose 117 (H) 70 - 100 MG/DL [facility] Blood Urea Nitrogen 6 (L) 7 - 25 MG/DL [facility] Creatinine 0.43 0.4 - 1.00 MG/DL [facility] Calcium 9.3 8.5 - 10.6 MG/DL [facility] Total Protein 6.0 6.0 - 8.0 G/DL [facility] Total Bilirubin 0.6 0.3 - 1.2 MG/DL [facility] Albumin 4.3 3.5 - 5.0 G/DL [facility] Alk Phosphatase 103 25 - 110 U/L [facility] AST (SGOT) 37 7 - 40 U/L [facility] CO2 29 21 - 30 MMOL/L [facility] ALT (SGPT) 42 7 - 56 U/L [facility] Anion Gap 5 3 - 12 [facility] eGFR Non >60 >60 mL/min [facility] Comment: The eGFR is not validated for use in drug dosing adjustments.Continue to use estimated creatinine clearance per dosing reference text.Please contact the Clinical Pharmacist for questions. eGFR >60 >60 mL/min [facility] Comment: The eGFR is not validated for use in drug dosing adjustments.Continue to use estimated creatinine clearance per dosing reference text.Please contact the Clinical Pharmacist for questions. Specimen Blood Performing Organization Address City/[facility]/Zipcode Phone Number [facility] [address] [place] [address] * POC GLUCOSE (11/10/2018 8:18 AM DCS ENGINEER) Only the most recent of 2 results within the time period is included. Glucose, POC 87 70 - 100 MG/DL [facility] Performing Organization Address [facility] Phone Number [facility] [address] [place] [address] * URINALYSIS DIPSTICK (11/08/2018 10:12 AM DCS ENGINEER) Color,UA YELLOW [facility] [place] Turbidity,UA CLEAR CLEAR-CLEAR [facility] [place] Specific [place]-Urine 1.015 1.003 - 1.035 [facility] [place] pH,UA 6.5 5.0 - 8.0 [facility] [place] Protein,UA NEG NEG-NEG [facility] [place] Glucose,UA NEG NEG-NEG [facility] [place] Ketones,UA 1+ (A) NEG-NEG [facility] [place] Bilirubin,UA NEG NEG-NEG [facility] [place] Blood,UA NEG NEG-NEG [facility] [place] Urobilinogen,UA NORMAL NORM-NORMAL [facility] [place] Nitrite,UA NEG NEG-NEG [facility] [place] Leukocytes,UA NEG NEG-NEG [facility] [place] Specimen Urine - Urine Performing Organization Address [facility]/Zipcode Phone Number [facility] [place] [address] [phone] * 2-D + DOPPLER ECHOCARDIOGRAM (10/24/2018 10:10 AM DCS ENGINEER) IVS 0.54 0.6 - 0.9 cm OTHER OUTSIDE LAB LVIDD 4.60 3.8 - 5.2 cm OTHER OUTSIDE LAB LVIDS 2.99 2.2 - 3.5 cm OTHER OUTSIDE LAB PW 0.69 0.6 - 0.9 cm OTHER OUTSIDE LAB TDI e' 0.15 m/s OTHER OUTSIDE LAB Right Ventricular Mid 3.06 1.9 - 3.5 cm OTHER OUTSIDE LAB Diameter LA size 2.90 2.7 - 3.8 cm OTHER OUTSIDE LAB LA volume 36.47 22 - 52 mL OTHER OUTSIDE LAB Right Atrial Area 12.48 <18 cm2 OTHER OUTSIDE LAB Right Atrial Major 4.07 2.2 - 2.8 cm OTHER OUTSIDE LAB Dimension AV peak velocity 1.19 m/s OTHER OUTSIDE LAB MV Peak A Regulo 0.60 m/s OTHER OUTSIDE LAB MV Peak E Regulo PW 0.84 m/s OTHER OUTSIDE LAB Right Ventricular Basal 3.40 2.5 - 4.1 cm OTHER OUTSIDE LAB Diameter Right Heart Systolic 2.26 >1.7 cm OTHER OUTSIDE LAB Mmode TAPSE Sinus 2.59 2.7 - 3.3 cm OTHER OUTSIDE LAB BSA 1.56 m2 OTHER OUTSIDE LAB Referring Provider Isreal Adams OTHER OUTSIDE LAB FS 35.00 28 - 44 % OTHER OUTSIDE LAB EF 59.50 % OTHER OUTSIDE LAB LV mass 84.48 66 - 150 g OTHER OUTSIDE LAB RWT 0.30 <=0.42 OTHER OUTSIDE LAB E/A ratio 1.40 OTHER OUTSIDE LAB TV rest pulmonary artery 13 mmHg OTHER OUTSIDE LAB pressure E/E' ratio 5.60 OTHER OUTSIDE LAB Right Heart Systolic TDI 0.146 m/s OTHER OUTSIDE LAB S' Left Atrium Index 23.38 16 - 34 OTHER OUTSIDE LAB Cardiology Ultrasound Siemens [id number] OTHER OUTSIDE LAB Machine Left Ventricle Mass Index 54.15 44 - 88 g/m2 OTHER OUTSIDE LAB ECHO EF 60 % OTHER OUTSIDE LAB Narrative Performed At OTHER OUTSIDE LAB Normal left ventricular contractility.Estimated LVEF 60%. Normal RV contractility. Normal valvular structures.Trace mitral, tricuspid, and pulmonic regurgitation.Estimated PA pressure 14 mmHg. Trivial pericardial effusion. No prior study available for comparison. Performing Organization Address City/State/Zipcode Phone Number OTHER OUTSIDE LAB * NM PET SCAN WHOLEBODY (HEAD-TOES) (10/24/2018 8:13 AM DCS ENGINEER) Impressions Performed At 1.Prior left great toe amputation with low-grade FDG uptake along the [facility] resection margin which is likely post therapeutic in nature. 2. Resolution of dominant left lower lobe pulmonary metastasis. 3. Redemonstration of small, indeterminate left upper lobe pulmonary nodule which continues to demonstrate mild hypermetabolic activity. This lesion appears to have increased in size in comparison to the oldest available CT chest examination from March 2018. This may be due to true progression of the nodule versus pseudo progression due to differences in slice acquisition between the 2 examinations. Additionally, this lesion is incompletely characterized by PET imaging due to its small size. Continued attention to this lesion on follow- up imaging is recommended. By my electronic signature, I attest that I have personally reviewed the images for this examination and formulated the interpretations and opinions expressed in this report Finalized by Sony Chan D.O. on 10/24/2018 12:14 PM. Dictated by Td Lincoln M.D. on 10/24/2018 8:52 AM. Narrative Performed At CT PET SCAN WHOLE BODY (HEAD-TOES) [facility] Radiopharmaceutical: 11.5 mCi F-18 Fluorodeoxyglucose (FDG) IV. Clinical Indication: Rodarte sarcoma. Technique: PET imaging was performed from the vertex to the toes 70 minutes after tracer administration. Low dose non-contrast CT imaging was performed for attenuation correction and localization purposes. Current mean hepatic SUV (reported for manager quality purposes) is 2.4. Blood glucose level (at the time of radiopharmaceutical administration): 85 mg/dL Comparison: Whole-body PET/CT May 05, 2018 FINDINGS: Head/Neck: No suspicious hypermetabolic lesion(s). Chest: Small mildly hypermetabolic nodule within the left upper lobe is redemonstrated, with a max SUV of 2.0, previously 2.1. This lesion measures up to 0.[address] image 114. In the oldest available comparison study CT scan of the chest from March 2018, this same nodule measured 0.3 cm. The dominant left lower lobe pulmonary metastasis is no longer visualized. Abdomen/Pelvis: No suspicious hypermetabolic lesion(s). Osseous Structures: Unchanged small sclerotic focus within the T8 vertebral body, without associated hypermetabolic activity, most compatible with a small bone island. No suspicious hypermetabolic osseous lesion. There has been development of diffuse increased FDG uptake throughout the axial and proximal appendicular skeleton likely representing physiologic marrow response to chemotherapy. Extremities: Prior left great toe amputation. Mild hypermetabolic activity at the resection margin, likely postoperative. Additional CT findings: Right IJ CVC. Procedure Note Interface, Radiant Results - 10/24/2018 12:19 PM DCS ENGINEER NM PET SCAN WHOLE BODY (HEAD-TOES) Radiopharmaceutical: 11.5 mCi F-18 Fluorodeoxyglucose (FDG) IV. Clinical Indication: Rodarte sarcoma. Technique: PET imaging was performed from the vertex to the toes 70 minutes after tracer administration. Low dose non-contrast CT imaging was performed for attenuation correction and localization purposes. Current mean hepatic SUV ( reported for manager quality purposes) is 2.4. Blood glucose level (at the time of radiopharmaceutical administration): 85 mg/ dL Comparison: Whole-body PET/CT May 05, 2018 FINDINGS: Head/Neck: No suspicious hypermetabolic lesion(s). Chest: Small mildly hypermetabolic nodule within the left upper lobe is redemonstrated, with a max SUV of 2.0, previously 2.1. This lesion measures up to 0.[address] image 114. In the oldest available comparison study CT scan of the chest from March 2018, this same nodule measured 0.3 cm. The dominant left lower lobe pulmonary metastasis is no longer visualized. Abdomen/Pelvis: No suspicious hypermetabolic lesion(s). Osseous Structures: Unchanged small sclerotic focus within the T8 vertebral body , without associated hypermetabolic activity, most compatible with a small bone island. No suspicious hypermetabolic osseous lesion. There has been development of diffuse increased FDG uptake throughout the axial and proximal appendicular skeleton likely representing physiologic marrow response to chemotherapy. Extremities: Prior left great toe amputation. Mild hypermetabolic activity at the resection margin, likely postoperative. Additional CT findings: Right IJ CVC. IMPRESSION 1. Prior left great toe amputation with low-grade FDG uptake along the resection margin which is likely post therapeutic in nature. 2. Resolution of dominant left lower lobe pulmonary metastasis. 3. Redemonstration of small, indeterminate left upper lobe pulmonary nodule which continues to demonstrate mild hypermetabolic activity. This lesion appears to have increased in size in comparison to the oldest available CT chest examination from March 2018. This may be due to true progression of the nodule versus pseudo progression due to differences in slice acquisition between the 2 examinations. Additionally, this lesion is incompletely characterized by PET imaging due to its small size. Continued attention to this lesion on follow-up imaging is recommended. By my electronic signature, I attest that I have personally reviewed the images for this examination and formulated the interpretations and opinions expressed in this report Finalized by Sony Chan D.O. on 10/24/2018 12:14 PM. Dictated by Td Lincoln M.D. on 10/24/2018 8:52 AM. Performing Organization Address City/State/Zipcode Phone Number [facility] from Last 3 Months Insurance Payer Benefit Subscriber ID Type Phone Address Plan / Group BCBS [facility] xxxxxxxxxxxx PPO [facility] MEDICAID [facility] xxxxxxxxxxx Medicaid [place] Advance Directives Patient has advance care planning documents, and code status on file. For more information, please contact: [facility] [address] [place] [address] Date Inactivated Comments Code Status Date Activated 04/27/2018 8:23 PM Full Code 04/26/2018 9:23 AM Provider has discussed Code Status No, discussion not w/Patient or Family? necessary based on Dx
--- OUTSIDE RECORDS SUMMARY | 2018-12-04 16:06 | XMS REPORT | Encounter Summary ---
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 Refill [facility] - OP Exam [address] [address] Social History Date Tobacco Use [...] Status Date of Assessment Functional Status Response 11/27/2018 Does the patient have a hearing impairment: No 11/27/2018 Does the patient have a visual impairment: Yes 11/27/2018 Does the patient have impaired ambulation: No 11/27/2018 Does the patient have an activity of daily living No (ADL) impairment: 11/27/2018 Does the patient have an instrumental activity of No daily living (IADL) impairment: Date of Assessment Cognitive Status Response 11/27/2018 Does the patient have a cognitive impairment: No as of this encounter Miscellaneous Notes * Telephone Encounter - Renee Curran RN - 11/28/2018 3:15 PM CDT Received mychart message for Zofran refill. Patient stated needs refilled at [facility]. Refill done. 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
--- OUTSIDE RECORDS SUMMARY | 2018-12-04 16:06 | XMS REPORT | Encounter Summary ---
Author Author [facility] Organization [facility] Address Unknown Phone Unavailable Care Team Providers Care Driller Operator Name Role Phone Karyn Anderson MD PCP Samuel Kelly DPM 21 Roe Aleman DO Unavailable Reason for Visit * Reason Comments Heme/Onc Care Encounter Details Care Team Description [place] [address] [address] Arrived 11/30/2018 [facility] - OP Treatment [address] [phone] Social History Date Tobacco Use [...] cognitive impairment: No as of this encounter Discharge Instructions * Patient Instructions* Marisela Martins RN - 11/30/2018 12:57 PM CDT Call Immediately to report the following: Uncontrolled nausea and/or vomiting, uncontrolled pain, or unusual bleeding. Temperature of 100.4 F or greater and/or any sign/symptom of infection (redness , warmth, tenderness) Painful mouth or difficulty swallowing Red, cracked, or painful hands and/or feet Diarrhea Swelling of arms or legs Rash Important Phone Numbers: OP Cancer Center Main Number (answered 24 hours a day) [phone] Cancer Center Scheduling (appointments) [phone] [id number] [facility] (for nutritional supplements) [phone] in this encounter Plan of Treatment Not on fileas of this encounter Visit Diagnoses Not on filein this encounter
--- OUTSIDE RECORDS SUMMARY | 2018-12-04 16:06 | XMS REPORT | Encounter Summary ---
Author Author [facility] Organization [facility] Address Unknown Phone Unavailable Care Team Providers Care Taxicab Dispatcher Name Role Phone Karyn Anderson MD PCP Samuel Kelly DPM 21 Roe Aleman DO Unavailable Reason for Visit * Reason Comments Heme/Onc Care Encounter Details Care Team Description [place] [address] [address] Drug-induced anemia (Primary Dx); Canker sores oral; Rodarte's sarcoma (HCC) 11/30/2018 Office Visit [facility] - OP Exam [address] [address] Social History Date Tobacco Use Types Packs/Day Years Used Never Smoker Smokeless Tobacco: Never Used Alcohol Use Drinks/Week oz/Week Comments No Sex Assigned at Date Recorded Not on file Industry Job Start Date Occupation Not on file Not on file Not on file Travel End Travel History Travel Start No recent travel history available. as of this encounter Last Filed Vital Signs Time Taken Vital [...] 11:34 AM CDT Body Mass Index 19.97 in this encounter Functional Status Date of Assessment [...] cognitive impairment: No as of this encounter Progress Notes * Isreal Adams MD - 11/30/2018 11:40 AM CDT Name: Evelin Mancilla : 1995 AGE: 22 y.o. DATE OF SERVICE: 11/30/2018 Subjective: Reason for Visit: Heme/Onc Care Evelin Mancilla is a 22 y.o. female. Cancer Staging Rodarte's sarcoma (HCC) Staging form: Bone - Appendicular Skeleton, Trunk, Skull, And Facial Bones, AJCC 8th Edition - Clinical: cM1a - Signed by Isreal Adams MD on 06/05/2018 History of Present IllnessAt 22 yrs old, she presented in consultation [...] 02/21/2018, pathology revealing a poorly differentiated neoplasm, [facility] consultation called it a small round blue [...] is very high). She went to an compound machine operator who concurred with the decision to proceed with the surgical resection and chemotherapy for the goal of attacking the disease lianna. She is not very jew, and was okay with aborting the , [...] but cytopenias have limited that. Admitted to [facility] after 5th cycle, 3rd VAC, due to persistent neutropenic fevers , exquisitely sensitive rash on hands/feet. CT chest done while in-house showed response in both the RADHA (8mm --> 6mm) and L lateral pleural based lung masses ( near completely resolved). The T8 lesion was stable, again suggesting less likely to be associated with actual cancer. Sarcoma tumor board discussions at this time suggested continuing chemo for now , but look at consolidative techniques in the future (surgery vs radiation?) She comes back in after 13th cycle of dose-adjusted alternating VAC/IE, (dose- adjusted cytoxan to 1g/m2; etoposide to 100mg/m2 day 1-4 and ifos 1800mg/m2 day 1-4 due to significant cytopenias). In with mother. Planned to finish 14th cycle next week, but her canker sores this week have really set her back. She is p[retty miserable right now due to mouth, can hardly eat/drink anything. Feels like she needs another PRBC transfusion as she is worn down again. 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 Restaging PET 10/24/18 shows resolution of lateral L lung mass, yet still a small mildly active RADHA nodule; no other obvious signs of disease elsewhere. Echo Oct 2018 shows preserved EF 60%. Review of Systems Constitutional: Positive for activity change, appetite change and fatigue. Negative for unexpected weight change. HENT: Positive for mouth sores, sore throat and trouble swallowing. Eyes: Negative. Negative for visual disturbance. Respiratory: Negative. Negative for shortness of breath. Cardiovascular: Negative. Negative for chest pain and leg swelling. Gastrointestinal: Negative. Negative for abdominal pain, diarrhea, nausea and vomiting. Endocrine: Negative. Genitourinary: Negative. Musculoskeletal: Negative. Negative for arthralgias and myalgias. Skin: Negative. Negative for rash. Allergic/Immunologic: Negative. Neurological: Negative. Negative for weakness, numbness and headaches. Hematological: Negative. Negative for adenopathy. Does not bruise/bleed easily. Psychiatric/Behavioral: Negative for decreased concentration, self-injury and sleep disturbance. All other systems reviewed and are negative. Objective: acetaminophen (TYLENOL) 325 mg tablet Take 325 mg by mouth every 4 hours as needed for Pain. acyclovir (ZOVIRAX) 800 mg tablet Take one tablet by mouth every 8 hours. doxycycline (VIBRAMYCIN) 100 mg tablet Take 100 mg by mouth twice daily. fluconazole (DIFLUCAN) 200 mg tablet Take one tablet by mouth daily. GLUTAMINE PO Take 1,000 mg by mouth twice daily. ibuprofen (ADVIL) 200 mg tablet Take 200 mg by mouth every 6 hours as needed. levoFLOXacin (LEVAQUIN) 500 mg tablet Take one tablet by mouth daily. lidocaine 2%/zinc oxide 40%(#) Apply liberally to perianal area as needed loratadine (CLARITIN) 10 mg tablet Take 10 mg by mouth every morning. LORazepam (ATIVAN) 0.5 mg tablet Take one tablet by mouth every 6 hours as needed for Nausea (anxiety and insomnia). OLANZapine (ZYPREXA) 10 mg tablet TAKE 1 TABLET BY MOUTH AT BEDTIME DAILY. ON DAYS 1-4 OF EACH CYCLE ondansetron (ZOFRAN) 8 mg tablet Take one tablet by mouth every 8 hours as needed (nausea and vomiting). other medication 1 Dose at bedtime daily. CBD 2-4 ML oxyCODONE/acetaminophen (PERCOCET; ENDOCET; ROXICET) 5/325 mg tablet Take 1- 2 tablets by mouth every 6 hours as needed for Pain Earliest Fill Date: 04/24/[address] (PROTONIX) 40 mg tablet Take one tablet by mouth daily. prednisone (DELTASONE) 50 mg tablet Take one tablet by mouth daily with breakfast. prochlorperazine maleate (COMPAZINE) 10 mg tablet TAKE 1 TABLET BY MOUTH EVERY 6 HOURS NEEDED FOR NAUSEA OR VOMITING pyridoxine HCl (vitamin B6) (VITAMIN B-6 PO) Take 100 mg by mouth daily. traZODone (DESYREL) 50 mg tablet Take one tablet by mouth at bedtime as needed for Sleep. Vitals: 11/30/18 1134 BP: 109/56 Pulse: 96 Resp: 16 Temp: 37.1 C (98.8 F) TempSrc: Oral SpO2: 100% Weight: 54.4 kg (120 lb) Height: 165.1 cm (65") Body mass index is 19.97 kg/m. Pain Score: Seven Pain Loc: Mouth Fatigue Scale: 0-None Pain Addressed: Prescription provided for pain management Patient Evaluated for a Clinical Trial: No treatment clinical trial available for this patient. Eastern Cooperative Oncology Group performance status is 1, Restricted in physically strenuous activity but ambulatory and able to carry out work of a light or sedentary nature, e.g., light house work, office work. Physical Exam Constitutional: She is oriented to person, place, and time. She appears well- developed and well-nourished. No distress. HENT: Head: Atraumatic. Mouth/Throat: No oropharyngeal exudate. Shaved head Mouth sores bad right now, especially bottom R lip Has rash on R nares too Eyes: EOM are normal. No scleral icterus. Neck: Neck supple. Cardiovascular: Normal rate and regular rhythm. No murmur heard. Pulmonary/Chest: Effort normal and breath sounds normal. No respiratory distress. She has no wheezes. Abdominal: Soft. Bowel sounds are normal. She exhibits no distension and no mass. Genitourinary: Genitourinary Comments: Deferred genital exam today Musculoskeletal: Normal range of motion. She exhibits deformity (L great toe amputation - healed well). She exhibits no edema. Lymphadenopathy: She has no cervical adenopathy. Neurological: She is alert and oriented to person, place, and time. No cranial nerve deficit. Coordination normal. Skin: Skin is warm and dry. No rash (hands/feet rash has completely resolved) noted. No pallor. Typical nail changes from chemo, although R big toe nail fell off and has yet to scab over Psychiatric: She has a normal mood and affect. Her behavior is normal. Judgment and thought content normal. CBC w diff Lab Results Component Value Date/Time WBC 2.1 (L) 11/30/2018 11:26 AM RBC 2.33 (L) 11/30/2018 11:26 AM HGB 7.7 (L) 11/30/2018 11:26 AM HCT 22.3 (L) 11/30/2018 11:26 AM MCV 95.8 11/30/2018 11:26 AM MCH 33.1 11/30/2018 11:26 AM MCHC 34.5 11/30/2018 11:26 AM RDW 21.2 (H) 11/30/2018 11:26 AM PLTCT 45 (L) 11/30/2018 11:26 AM MPV 8.0 11/30/2018 11:26 AM Lab Results Component Value Date/Time NEUT 58 11/27/2018 02:46 PM ANC 0.82 (L) 11/30/2018 11:26 AM ANC 0.50 (L) 11/27/2018 02:46 PM LYMA 27 11/27/2018 02:46 PM ALC 0.20 (L) 11/27/2018 02:46 PM JADE 12 11/27/2018 02:46 PM AMC 0.10 11/27/2018 02:46 PM EOSA 2 11/27/2018 02:46 PM AEC 0.00 11/27/2018 02:46 PM BASA 1 11/27/2018 02:46 PM ABC 0.00 11/27/2018 02:46 PM Assessment and Plan: Problem Canker Sores Oral On acyclovir tid now Add velvet glove for numbing effect, encourage hydration; hopeful it will improve as her immune system bounces back over next couple days Hold on last cycle of chemo until week of 12/11/18 Rodarte's Sarcoma (Hcc) At 22 yrs old, she presented in [...] 02/21/2018, pathology revealing a poorly differentiated neoplasm, [facility] consultation called it a small round blue [...] is very high). She went to an compound machine operator who concurred with the decision to proceed with the surgical resection and chemotherapy for the goal of attacking the disease lianna. She is not very jew, and was okay with aborting the , [...] but cytopenias have limited that. Admitted to [facility] after 5th cycle, 3rd VAC, due to persistent neutropenic fevers , exquisitely sensitive rash on hands/feet. CT chest done while in-house showed response in both the RADHA (8mm --> 6mm) and L lateral pleural based lung masses ( near completely resolved). The T8 lesion was stable, again suggesting less likely to be associated with actual cancer. Sarcoma tumor board discussions at this time suggested continuing chemo for now , but look at consolidative techniques in the future (surgery vs radiation?) She comes back in after 13th cycle of dose-adjusted alternating VAC/IE, (dose- adjusted cytoxan to 1g/m2; etoposide to 100mg/m2 day 1-4 and ifos 1800mg/m2 day 1-4 due to significant cytopenias). In with mother. Planned to finish 14th cycle next week, but her canker sores this week have really set her back. Genital ulcers and hemorrhoids have been major issues throughout, and chemo- induced anemia has required multiple blood transfusions to [...] resection 04/26/18, with concerning L lung nodules ( one resolved, one stable) and questionable T8 and R femoral head bone lesions ( although MRI thoracic spine looked more benign and [...] will call me if any problems arise. Set her up for another PRBC transfusion tomorrow due to symptomatic anemia <8g/ dL. 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
--- OUTSIDE RECORDS SUMMARY | 2018-12-04 16:06 | XMS REPORT | Encounter Summary ---
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 Office Visit [facility] - OP Exam [id number] [address] Social History Date Tobacco Use [...] Vital Signs Time Taken Vital Sign Reading 11/27/2018 2:47 PM CDT Blood Pressure 105/63 11/27/2018 2:47 PM CDT Pulse 91 11/27/2018 2:47 PM CDT Temperature 36.7 C (98.1 F) 11/27/2018 2:47 PM CDT Respiratory Rate 16 11/27/2018 2:47 PM CDT Oxygen Saturation 100% - Inhaled Oxygen - Concentration 11/27/2018 2:47 PM CDT Weight 55.2 kg (121 lb 12.8 oz) 11/27/2018 2:47 PM CDT Height 165.1 cm (5' 5") 11/27/2018 2:47 PM CDT Body Mass Index 20.27 in this encounter Functional Status Date of [...] as of this encounter Progress Notes * Kimebrly Salgado APRN - 11/27/2018 3:00 PM CDT Name: Evelin Mancilla : 1995 AGE: 22 y.o. DATE OF SERVICE: 11/27/2018 Subjective: Reason for Visit: Heme/Onc Care Evelin Mancilla is a 22 y.o. female. Cancer Staging Rodarte's sarcoma (HCC) Staging form: Bone - Appendicular Skeleton, Trunk, Skull, And Facial Bones, AJCC 8th Edition - Clinical: [id number] - Signed by Isreal Adams MD on 06/05/2018 History of Present IllnessAt 22 yrs old, she presented in consultation from Dr. Samuel Kellyand Dr. 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 Therefore, she was referred to Dr Triplett. On staging scans done 04/14/18, she was found to have 1.5 cm noncalcified pleural -based nodule within the lateral left lower lobe suspicious for pulmonary metastasis with additional tiny subcentimeter nodule within the left upper lobe , small sclerotic lesion within the T8 vertebral body and the right femoral head , as well as thickening of the endometrium with a 1.6 cm rounded cystic- appearing process within the endometrial cavity likely representing [...] is very high). She went to an production stage manager who concurred with the decision to proceed with the surgical resection and chemotherapy for the goal of attacking the disease lianna. She is not very catholic, and was okay with aborting the , [...] but cytopenias have limited that. Admitted to [facility] after 5th cycle, 3rd VAC, due to persistent neutropenic fevers , exquisitely sensitive rash on hands/feet. CT chest done while in-house showed response in both the RADHA (8mm -->6mm) and L lateral pleural based lung masses (near completely resolved). The T8 lesion was stable, again suggesting less likely to be associated with actual cancer. Sarcoma tumor board discussions at this time suggested continuing chemo for now - can look at consolidative techniques in the future (surgery vs radiation?) She comes back in after 8th cycle of dose-adjusted alternating VAC/IE, (dose- adjusted cytoxan to 1g/m2; etoposide to 100mg/m2 day 1-4 and ifos 1800mg/m2 day 1-4 due to significant cytopenias). She is here at [id number]. Sheis feeling good but has had mouth sores develop over the weekend despite taking acyclovir BID. The toenail on her right great toe came off and is somewhat sore. No fevers or infectious concerns. Review of Systems All other systems reviewed and are negative. [...] at bedtime as needed for Sleep. Vitals: 11/27/18 1447 BP: 105/63 Pulse: 91 Resp: 16 Temp: 36.7 C (98.1 F) TempSrc: Oral SpO2: 100% Weight: 55.2 kg (121 lb 12.8 oz) Height: 165.1 cm (65") Body mass index is 20.27 kg/m. Pain Score: Zero Fatigue Scale: 0-None Pain Addressed: N/A Patient Evaluated for a Clinical Trial: No treatment clinical trial available for this patient. Eastern Cooperative Oncology Group performance status is 0, Fully active, able to carry on all pre-disease performance without restriction.. Physical Exam Constitutional: She is oriented to person, place, and time. She appears well- developed and well-nourished. HENT: Head: Normocephalic. Mouth/Throat: Oropharynx is clear and moist. ulcer on inside of lower lip as well as right corner of lips. Eyes: Pupils are equal, round, and reactive to light. Cardiovascular: Normal rate and regular rhythm. Pulmonary/Chest: Effort normal and breath sounds normal. Musculoskeletal: Normal range of motion. Lymphadenopathy: She has no cervical adenopathy. Neurological: She is alert and oriented to person, place, and time. Skin: No rash noted. right great toenail partially off; covered with bandaid. Psychiatric: She has a normal mood and affect. Her behavior is normal. Nursing note and vitals reviewed. CBC w diff Lab Results Component Value Date/Time WBC 0.8 (LL) 11/27/2018 02:46 PM RBC 2.41 (L) 11/27/2018 02:46 PM HGB 8.0 (L) 11/27/2018 02:46 PM HCT 23.4 (L) 11/27/2018 02:46 PM MCV 96.8 11/27/2018 02:46 PM MCH 33.2 11/27/2018 02:46 PM MCHC 34.3 11/27/2018 02:46 PM RDW 21.1 (H) 11/27/2018 02:46 PM PLTCT 19 (LL) 11/27/2018 02:46 PM MPV 8.0 11/27/2018 02:46 PM Lab Results Component Value Date/Time NEUT 58 11/27/2018 02:46 PM ANC 0.50 (L) 11/27/2018 02:46 PM LYMA 27 11/27/2018 02:46 PM ALC 0.20 (L) 11/27/2018 02:46 PM JADE 12 11/27/2018 02:46 PM AMC 0.10 11/27/2018 02:46 PM EOSA 2 11/27/2018 02:46 PM AEC 0.00 11/27/2018 02:46 PM BASA 1 11/27/2018 02:46 PM ABC 0.00 11/27/2018 02:46 PM Assessment and Plan: 1. Rodarte's sarcoma 2. mucositis 3. pancytopenia PLAN: CBC reviewed and she was given a copy. Neutropenic and thrombocytopenic precautions reviewed. She will increase acyclovir to TID and see Dr. Adams back on 11/30/18 for recheck of CBC in case she needs transfusion on 12/01/18. Questions and concerns addressed. She is in agreement with plan. in this encounter Plan of Treatment Not on fileas of this encounter Results * CBC AND DIFF (11/30/2018 11:26 AM CDT) White Blood Cells 2.1 (L) 4.5 - 11.0 K/UL [facility] RBC 2.33 (L) 4.0 - 5.0 M/UL [facility] Hemoglobin 7.7 (L) 12.0 - 15.0 GM/DL [facility] Hematocrit 22.3 (L) 36 - 45 % [facility] MCV 95.8 80 - 100 FL [facility] MCH 33.1 26 - 34 PG [facility] MCHC 34.5 32.0 - 36.0 G/DL [facility] RDW 21.2 (H) 11 - 15 % [facility] Platelet Count 45 (L) 150 - 400 K/UL [facility] MPV 8.0 7 - 11 FL [facility] Segmented Neutrophils 29 (L) 41 - 77 % [facility] Bands 10 0 - 10 % [facility] Lymphocytes 20 (L) 24 - 44 % [facility] Monocytes 38 (H) 4 - 12 % [facility] Eosinophil 2 0 - 5 % [facility] Basophil 1 0 - 2 % [facility]ardrop PRESENT [facility] Platelet Estimate MOD DEC [facility] [place] Absolute Neutrophil Count 0.82 (L) 1.8 - 7.0 K/UL [facility] Specimen Blood Performing Organization Address City/State/Zipcode Phone Number [facility] [address] [address] in this encounter Visit Diagnoses 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
--- OUTSIDE RECORDS SUMMARY | 2018-12-04 16:07 | XMS REPORT | Encounter Summary ---
Author Author [facility] Organization [facility] Address Unknown Phone Unavailable Care Team Providers Care Meteorological Engineer Name Role Phone Karyn Anderson MD PCP Samuel Kelly DPM 21 Roe Aleman DO Unavailable Reason for Visit * Reason Comments Labs Only Other Encounter Details Care Team Description Date [place] [address] [address] Rodarte's tumor (HCC) (Primary Dx); Rodarte's sarcoma (HCC) 11/20/2018 Office Visit [facility] - OP Exam [address] [address] Social History Date Tobacco Use [...] Vital Signs Time Taken Vital Sign Reading 11/20/2018 8:21 AM CONCESSION CASHIER Blood Pressure 116/69 11/20/2018 8:21 AM CONCESSION CASHIER Pulse 80 11/20/2018 8:21 AM CONCESSION CASHIER Temperature 36.7 C (98 F) 11/20/2018 8:21 AM CONCESSION CASHIER Respiratory Rate 19 11/20/2018 8:21 AM CONCESSION CASHIER Oxygen Saturation 100% - Inhaled Oxygen - Concentration 11/20/2018 8:21 AM CONCESSION CASHIER Weight 57.7 kg (127 lb 3.2 oz) 11/20/2018 8:21 AM CONCESSION CASHIER Height 165.1 cm (5' 5") 11/20/2018 8:21 AM CONCESSION CASHIER Body Mass Index 21.17 in this encounter Functional Status Date of Assessment Functional Status Response 11/20/2018 Does the patient have a hearing impairment: No 11/20/2018 Does the patient have a visual impairment: Yes 11/20/2018 Does the patient have impaired ambulation: Yes 11/20/2018 Does the patient have an activity of daily living No (ADL) impairment: 11/20/2018 Does the patient have an instrumental activity of No daily living (IADL) impairment: Date of Assessment Cognitive Status Response 11/20/2018 Does the patient have a cognitive impairment: No as of this encounter Progress Notes * Isreal Adams MD - 11/20/2018 8:20 AM CONCESSION CASHIER Name: Evelin Mancilla : 1995 AGE: 22 y.o. DATE OF SERVICE: 11/20/2018 Subjective: Reason for Visit: Labs Only and Other Evelin Mancilla is a 22 y.o. female. [...] 02/21/2018, pathology revealing a poorly differentiated neoplasm, [facility] consultation called it a small round blue [...] is very high). She went to an go cart mechanic who concurred with the decision to proceed with the surgical resection and chemotherapy for the goal of attacking the disease lianna. She is not very cheondoism, and was okay with aborting the , [...] but cytopenias have limited that. Admitted to [facility] after 5th cycle, 3rd VAC, due to [...] vs radiation?) She comes back in after 12th cycle of dose-adjusted alternating VAC/IE, (dose- adjusted cytoxan to 1g/m2; etoposide to 100mg/m2 day 1-4 and ifos 1800mg/m2 day 1-4 due to significant cytopenias). In with mother. Genital ulcers and hemorrhoids have been major issues throughout, with hemorrhoids flaring up again last couple days. 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 Restaging PET 10/24/18 shows resolution of lateral L lung mass, yet still a small mildly active RADHA nodule; no other obvious signs of disease elsewhere. Echo Oct 2018 shows preserved EF 60%. Review of Systems Constitutional: Negative. Negative for activity change, fatigue and unexpected weight change. HENT: Negative. Eyes: Negative. Negative for visual disturbance. Respiratory: Negative. Negative for shortness of breath. Cardiovascular: Negative. Negative for chest pain and leg swelling. Gastrointestinal: Negative. Negative for abdominal pain, diarrhea, nausea and vomiting. Hemorrhoids Endocrine: Negative. Genitourinary: Negative. Musculoskeletal: Negative. Negative [...] at bedtime as needed for Sleep. Vitals: 11/20/18 0821 BP: 116/69 Pulse: 80 Resp: 19 Temp: 36.7 C (98 F) TempSrc: Oral SpO2: 100% Weight: 57.7 kg (127 lb 3.2 oz) Height: 165.1 cm (65") Body mass index is 21.17 kg/m. Pain Score: Zero Fatigue Scale: 0-None [...] No oropharyngeal exudate. Shaved head Mouth sores healed up Eyes: EOM are normal. No scleral icterus. [...] noted. No pallor. Typical nail changes from chemo Psychiatric: She has a normal mood and affect. Her behavior is normal. Judgment and thought content normal. CBC w diff Lab Results Component Value Date/Time WBC 12.7 (H) 11/20/2018 08:45 AM RBC 3.12 (L) 11/20/2018 08:45 AM HGB 10.3 (L) 11/20/2018 08:45 AM HCT 30.5 (L) 11/20/2018 08:45 AM MCV 97.9 11/20/2018 08:45 AM MCH 33.1 11/20/2018 08:45 AM MCHC 33.9 11/20/2018 08:45 AM RDW 22.6 (H) 11/20/2018 08:45 AM PLTCT 108 (L) 11/20/2018 08:45 AM MPV 8.4 11/20/2018 08:45 AM Lab Results Component Value Date/Time NEUT 95 (H) 11/09/2018 10:13 AM ANC 9.27 (H) 11/20/2018 08:45 AM ANC 6.10 11/09/2018 10:13 AM LYMA 3 (L) 11/09/2018 10:13 AM ALC 0.20 (L) 11/09/2018 10:13 AM JADE 2 (L) 11/09/2018 10:13 AM AMC 0.10 11/09/2018 10:13 AM EOSA 0 11/09/2018 10:13 AM AEC 0.00 11/09/2018 10:13 AM BASA 0 11/09/2018 10:13 AM ABC 0.00 11/09/2018 10:13 AM Comprehensive Metabolic Profile Lab Results Component Value Date/Time NA 141 11/20/2018 08:45 AM K 4.0 11/20/2018 08:45 AM CL 105 11/20/2018 08:45 AM CO2 29 11/20/2018 08:45 AM GAP 7 11/20/2018 08:45 AM BUN 9 11/20/2018 08:45 AM CR 0.63 11/20/2018 08:45 AM GLU 118 (H) 11/20/2018 08:45 AM Lab Results Component Value Date/Time CA 9.8 11/20/2018 08:45 AM ALBUMIN 4.6 11/20/2018 08:45 AM TOTPROT 6.6 11/20/2018 08:45 AM ALKPHOS 118 (H) 11/20/2018 08:45 AM AST 30 11/20/2018 08:45 AM ALT 45 11/20/2018 08:45 AM TOTBILI 0.4 11/20/2018 08:45 AM GFR >60 11/20/2018 08:45 AM GFRAA >60 11/20/2018 08:45 AM Assessment and Plan: Patient Active Problem List Diagnosis Date Noted Genital ulcer, female 07/24/2018 Overview Note: Likely due to myelosuppression associated with chemo Now on proph acyclovir BID throughout chemo - the few extra weeks around the holidays has resolved this for now, but likely to recur as we continue on chemo in the near future 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 She went to an go cart mechanic who concurred with the decision to proceed with the surgical resection and chemotherapy for the goal of attacking the disease lianna. She is not very cheondoism, and was okay with aborting the , [...] but cytopenias have limited that. Admitted to [facility] after 5th cycle, 3rd VAC, due to [...] vs radiation?) She comes back in after 12th cycle of dose-adjusted alternating VAC/IE, (dose- adjusted cytoxan to 1g/m2; etoposide to 100mg/m2 day 1-4 and ifos 1800mg/m2 day 1-4 due to significant cytopenias). In with mother. Genital ulcers and hemorrhoids have been major issues throughout, with hemorrhoids flaring up again last couple days. 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 [...] resection 04/26/18, with concerning L lung nodules and questionable T8 and R femoral head [...] cystitis, cardiotoxicity and secondary cancers, amongst others. Continue cycle #13 this week, with hopes of finishing out at least 14 cycles, push to 17 if still tolerating okay. Dose-reduced strategy is to allow her to continue pushing forward with chemo. Ordered levaquin to have at home if she starts running fevers. Acyclovir for proph against more genital ulcer outbreaks. Discussed with the patient and all questions fully answered. She will call me if any problems arise. ESSION CASHIER * Pepper Cross, WALLY - 11/20/2018 8:20 AM CONCESSION CASHIER Pt seeing physician lab orders needed. ESSION CASHIER in this encounter Plan of Treatment Not on fileas of this encounter Results * COMPREHENSIVE METABOLIC PANEL (11/20/2018 8:45 AM CONCESSION CASHIER) Sodium 141 137 - 147 MMOL/L [facility] Potassium 4.0 3.5 - 5.1 MMOL/L [facility] Chloride 105 98 - 110 MMOL/L [facility] Glucose 118 (H) 70 - 100 MG/DL [facility] Blood Urea Nitrogen 9 7 - 25 MG/DL [facility] Creatinine 0.63 0.4 - 1.00 MG/DL [facility] Calcium 9.8 8.5 - 10.6 MG/DL [facility] Total Protein 6.6 6.0 - 8.0 G/DL [facility] Total Bilirubin 0.4 0.3 - 1.2 MG/DL [facility] Albumin 4.6 3.5 - 5.0 G/DL [facility] Alk Phosphatase 118 (H) 25 - 110 U/L [facility] AST (SGOT) 30 7 - 40 U/L [facility] CO2 29 21 - 30 MMOL/L [facility] ALT (SGPT) 45 7 - 56 U/L [facility] Anion Gap 7 3 - 12 [facility] eGFR Non >60 >60 mL/min [facility] Comment: The eGFR is not validated for use in drug dosing adjustments.Continue to use estimated creatinine clearance per dosing reference text.Please contact the Clinical Pharmacist for questions. eGFR >60 >60 mL/min [facility] Comment: The eGFR is not validated for use in drug dosing adjustments.Continue to use estimated creatinine clearance per dosing reference text.Please contact the Clinical Pharmacist for questions. Specimen Blood Performing Organization Address City/State/Zipcode Phone Number [facility] [address] [place] [address] * CBC AND DIFF (11/20/2018 8:45 AM CONCESSION CASHIER) White Blood Cells 12.7 (H) 4.5 - 11.0 K/UL [facility] [place] RBC 3.12 (L) 4.0 - 5.0 M/UL [facility] [place] Hemoglobin 10.3 (L) 12.0 - 15.0 GM/DL [facility] [place] Hematocrit 30.5 (L) 36 - 45 % [facility] [place] MCV 97.9 80 - 100 FL [facility] [place] MCH 33.1 26 - 34 PG [facility] [place] MCHC 33.9 32.0 - 36.0 G/DL [facility] RDW 22.6 (H) 11 - 15 % [facility] Platelet Count 108 (L) 150 - 400 K/UL [facility] MPV 8.4 7 - 11 FL [facility] Segmented Neutrophils 54 41 - 77 % [facility] Bands 19 (H) 0 - 10 % [facility] Lymphocytes 8 (L) 24 - 44 % [facility] Monocytes 5 4 - 12 % [facility] Metamyelocyte 11 % [facility] Myelocyte 3 % [facility] AN[facility] PO[facility] [place] Large Platelets [facility] Teardrop [facility] Platelet Estimate SLT DEC [facility] [place] Absolute Neutrophil Count 9.27 (H) 1.8 - 7.0 K/UL [facility] Specimen Blood Performing Organization Address City/State/Zipcode Phone Number [facility] [place] [address] [place] [address] in this encounter Visit Diagnoses Diagnosis Rodarte's tumor (HCC) - Primary Malignant neoplasm of bone and articular cartilage, 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
--- OUTSIDE RECORDS SUMMARY | 2018-12-04 16:07 | XMS REPORT | Encounter Summary ---
Author Author [facility] Organization [facility] Address Unknown Phone Unavailable Care Team Providers Care Vice President Investor Relations Name Role Phone Karyn Anderson MD PCP Samuel Kelly DPM 21 Roe Aleman DO Unavailable Reason for Visit * Reason Comments Heme/Onc Care Encounter Details Care Team Description Date Type Department Kimberly Salgado APRN [address] [address] Arrived 11/27/2018 [facility] - OP Treatment [address] [address] Social History Date Tobacco Use [...] * Patient Instructions* Marisela Martins RN - 11/27/2018 3:57 PM CDT Call Immediately to report the [...] Main Number (answered 24 hours a day) [phone] Cancer Center Scheduling (appointments) [phone] [id number] [facility] (for nutritional supplements) [phone] in this encounter Medications at Time of Discharge Start Date End Date Medication Sig Dispensed Refills acetaminophen (TYLENOL) Take 325 mg 0 325 mg tablet by mouth every 4 hours as needed for Pain. 08/14/2018 acyclovir (ZOVIRAX) 800 Take one 90 tablet 3 mg tabletIndications: tablet by Rodarte's sarcoma (HCC) mouth every 8 hours. 07/15/2018 doxycycline (VIBRAMYCIN) Take 100 mg 0 100 mg tablet by mouth twice daily. 08/23/2018 fluconazole (DIFLUCAN) Take one 10 tablet 1 200 mg tabletIndications: tablet by Mouth lesion mouth daily. GLUTAMINE PO Take 1,000 mg 0 by mouth twice daily. ibuprofen (ADVIL) 200 mg Take 200 mg 0 tablet by mouth every 6 hours as needed. 07/24/2018 lidocaine 2%/zinc oxide Apply 30 g 1 40%(#)Indications: liberally to Rodarte's sarcoma (HCC) perianal area as needed loratadine (CLARITIN) 10 Take 10 mg by 0 mg tablet mouth every morning. 05/03/2018 LORazepam (ATIVAN) 0.5 mg Take one 60 tablet 1 tablet tablet by mouth every 6 hours as needed for Nausea (anxiety and insomnia). 10/26/2018 OLANZapine (ZYPREXA) 10 TAKE 1 TABLET 12 tablet 5 mg tabletIndications: BY MOUTH AT Rodarte's sarcoma (HCC) BEDTIME DAILY. ON DAYS 1-4 OF EACH CYCLE other medication 1 Dose at 0 bedtime daily. CBD 2-4 ML 04/24/2018 oxyCODONE/acetaminophen Take 1-2 48 tablet 0 (PERCOCET; ENDOCET; tablets by ROXICET) 5/325 mg tablet mouth every 6 hours as needed for Pain Earliest Fill Date: 04/24/18 11/06/[address] Take one 90 tablet 3 (PROTONIX) 40 mg tablet tablet by mouth daily. 10/18/2018 prednisone (DELTASONE) 50 Take one 5 tablet 3 mg tablet tablet by mouth daily with breakfast. pyridoxine HCl (vitamin Take 100 mg 0 B6) (VITAMIN B-6 PO) by mouth daily. 07/03/2018 traZODone (DESYREL) 50 mg Take one 30 tablet 3 tablet tablet by mouth at bedtime as needed for Sleep. 08/31/2018 11/30/2018 levoFLOXacin (LEVAQUIN) Take one 10 tablet 0 500 mg tablet tablet by mouth daily. 05/03/2018 11/28/2018 ondansetron (ZOFRAN) 8 mg Take one 30 tablet 5 tabletIndications: tablet by Rodarte's sarcoma (HCC) mouth every 8 hours as needed (nausea and vomiting). 11/21/2018 11/30/2018 prochlorperazine maleate TAKE 1 TABLET 30 tablet 0 (COMPAZINE) 10 mg tablet BY MOUTH EVERY 6 HOURS NEEDED FOR NAUSEA OR VOMITING as of this encounter Plan of Treatment Not on fileas of this encounter Visit Diagnoses Not on filein this encounter
--- OUTSIDE RECORDS SUMMARY | 2018-12-04 16:07 | XMS REPORT | Encounter Summary ---
Author Author [facility] Organization [facility] Address Unknown Phone Unavailable Care Team Providers Care Can Technician Name Role Phone Karyn Anderson MD PCP Samuel Kelly DPM 21 Roe Aleman DO Unavailable Encounter Details Care Team Description Date Type Department Robina Salgado APRN [address] [address] Arrived 11/27/2018 Hospital [facility] - OP Lab [address] [address] Social History Date Tobacco Use [...] cognitive impairment: No as of this encounter Medications at Time of Discharge Start Date End Date Medication Sig Dispensed Refills acetaminophen (TYLENOL) Take 325 mg 0 325 mg tablet by mouth every 4 hours as needed for Pain. 08/14/2018 acyclovir (ZOVIRAX) 800 Take one 90 tablet 3 mg tabletIndications: tablet by Rodarte's [facility]) mouth every 8 hours. 07/15/2018 doxycycline (VIBRAMYCIN) [...] g 1 40%(#)Indications: liberally to Rodarte's sarcoma ([facility]) perianal area as needed loratadine (CLARITIN) 10 Take 10 mg by 0 mg tablet mouth every morning. 05/03/2018 LORazepam (ATIVAN) 0.5 mg Take one 60 tablet 1 tablet tablet by mouth every 6 hours as needed for Nausea (anxiety and insomnia). 10/26/2018 OLANZapine (ZYPREXA) 10 TAKE 1 TABLET 12 tablet 5 mg tabletIndications: BY MOUTH AT Rodarte's sarcoma ([facility]) BEDTIME DAILY. ON DAYS 1-4 OF EACH [...] tablet 5 tabletIndications: tablet by Rodarte's sarcoma ([facility]) mouth every 8 hours as needed (nausea and vomiting). 11/21/2018 11/30/2018 prochlorperazine maleate TAKE 1 TABLET 30 tablet 0 (COMPAZINE) 10 mg tablet BY MOUTH EVERY 6 HOURS NEEDED FOR NAUSEA OR VOMITING as of this encounter Plan of Treatment Not on fileas of this encounter Procedures Comments Procedure Name Priority Date/Time Associated Diagnosis CBC AND DIFF Routine 11/27/2018 Rodarte's sarcoma (HCC) 2:46 PM CDT COMPREHENSIVE METABOLIC Routine 11/27/2018 Rodarte's sarcoma (HCC) PANEL 2:46 PM CDT in this encounter Results * COMPREHENSIVE METABOLIC PANEL (11/27/2018 2:46 PM CDT) Sodium 139 137 - 147 MMOL/L [facility] [...] Blood Performing Organization Address City/State/Zipcode Phone Number [facility] [address] [place] [address] * CBC AND DIFF (11/27/2018 2:46 PM CDT) White Blood Cells 0.8 (LL) 4.5 - 11.0 K/UL [facility] Comment: JYOTI Critical Result WBC:Called to ROBINA Chang NP at: 14:56:21 by: VENESSAOGRADHA Read back by: ROBINA Chang NP RBC 2.41 (L) 4.0 - 5.0 M/UL [facility] Hemoglobin 8.0 (L) 12.0 - 15.0 GM/DL [facility] Hematocrit 23.4 (L) 36 - 45 % [facility] MCV 96.8 80 - 100 FL [facility] MCH 33.2 26 - 34 PG [facility] [place] MCHC 34.3 32.0 - 36.0 G/DL [facility] RDW 21.1 (H) 11 - 15 % [facility] Platelet Count 19 (LL) 150 - 400 K/UL [facility] Comment: JYOTI Confirmed by smear Critical Result PLT:Called to ROBINA Chang NP at: 14:56:21 by: [email or web address] Read back by: ROBINA Chang NP MPV 8.0 7 - 11 FL [facility] Neutrophils 58 41 - 77 % [facility] [place] Lymphocytes 27 24 - 44 % [facility] [place] Monocytes 12 4 - 12 % [facility] [place] Eosinophils 2 0 - 5 % [facility] [place] Basophils 1 0 - 2 % [facility] [place] Absolute Neutrophil Count 0.50 (L) 1.8 - 7.0 K/UL [facility] [place] Absolute Lymph Count 0.20 (L) 1.0 - 4.8 K/UL [facility] Absolute Monocyte Count 0.10 0 - 0.80 K/UL [facility] [place] Absolute Eosinophil Count 0.00 0 - 0.45 K/UL [facility] [place] Absolute Basophil Count 0.00 0 - 0.20 K/UL [facility] Specimen Blood Performing Organization Address City/State/Zipcode Phone Number [facility] [address] [address] in this encounter Visit Diagnoses 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
--- OUTSIDE RECORDS SUMMARY | 2018-12-04 16:07 | XMS REPORT | Encounter Summary ---
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) Encounter for antineoplastic chemotherapy Added to [place] Plan: Cinvanti P rocedures vincristine (ONCOVIN) + DOXOrubicin (ADRIAMYCIN) + cyclophosphamide (CYTOXAN) + etoposide (VEPESID) + ifosfamide (IFEX) + pegfilgrastim (NEULASTA) + palonesetron (ALOXI) + aprepitant (CINVANTI) Encounter Details Care Team Description [place] [address] [place] [address] [phone] 11/21/2018 [facility] - OP Treatment [address] [address] Social History Date Tobacco Use Types Packs/Day [...] Vital Signs Time Taken Vital Sign Reading 11/21/2018 12:31 PM RETAIL LOSS PREVENTION SPECIALIST Blood Pressure 104/69 11/21/2018 12:31 PM RETAIL LOSS PREVENTION SPECIALIST Pulse 111 11/21/2018 12:31 PM RETAIL LOSS PREVENTION SPECIALIST Temperature 36.8 C (98.2 F) 11/21/2018 12:31 PM RETAIL LOSS PREVENTION SPECIALIST Respiratory Rate 16 11/21/2018 12:31 PM RETAIL LOSS PREVENTION SPECIALIST Oxygen Saturation 99% - Inhaled Oxygen - Concentration 11/21/2018 12:31 PM RETAIL LOSS PREVENTION SPECIALIST Weight 55.2 kg (121 lb 9.6 oz) 11/21/2018 12:31 PM RETAIL LOSS PREVENTION SPECIALIST Height 165.1 cm (5' 5") 11/21/2018 12:31 PM RETAIL LOSS PREVENTION SPECIALIST Body Mass Index 20.24 in this encounter Functional Status Date of [...] * Patient Instructions* Marisela Martins RN - 11/21/2018 12:09 PM RETAIL LOSS PREVENTION SPECIALIST Call Immediately to report the following: Uncontrolled nausea and/or vomiting, uncontrolled pain, or unusual bleeding. Temperature of 100.4 F or greater and/or any sign/symptom of infection (redness , warmth, tenderness) Painful mouth or difficulty swallowing Red, cracked, or painful hands and/or feet Diarrhea Swelling of arms or legs Rash Important Phone Numbers: OP Cancer Center Main Number (answered 24 hours a day) [phone] Cancer Center Scheduling (appointments) [phone] [id number] Cancer Action (for nutritional supplements) [phone] [place] LOSS PREVENTION SPECIALIST in this encounter Medications at Time of [...] NAUSEA OR VOMITING as of this encounter Progress Notes * Marisela Martins RN - 11/21/2018 3:49 PM RETAIL LOSS PREVENTION SPECIALIST Patient here for IV fluids, antiemetics and Neulasta. C/o some nausea today. One liter of normal saline and ativan administered as ordered. Therapy completed and tolerated well. She is feeling better. Discharged home ambulatory. 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 Administered Medications Action Date Dose Rate Site Medication Order MAR Action 11/21/2018 12:47 PM RETAIL LOSS PREVENTION SPECIALIST 1 mg LORazepam (ATIVAN) injection 0.5-1 mg Given 0.5-1 mg, Intravenous, ONCE, 1 dose, 11/21/18 at 1215, PROTECT FROM LIGHT, 11/21/2018 2:14 PM RETAIL LOSS PREVENTION SPECIALIST 6 mg Abdominal Tissue pegfilgrastim (NEULASTA) syringe 6 mg Given 6 mg, Subcutaneous, ONCE, 1 dose, 11/21/18 at 1215, -- Not for IV Push administration --, 11/21/2018 12:45 PM RETAIL LOSS PREVENTION SPECIALIST 1,000 mL 800 mL/hr sodium chloride 0.9 % infusion Given - New 1,000 mL, 1,000 mL, Intravenous, at 800 Bag mL/hr, ONCE, 1 dose, 11/21/18 at 1215 in this encounter
--- OUTSIDE RECORDS SUMMARY | 2018-12-04 16:07 | XMS REPORT | Encounter Summary ---
Author Author [facility] Organization [facility] Address Unknown Phone Unavailable Care Team Providers Care Digital Commentator Name Role Phone Karyn Anderson MD PCP Samuel Kelly DPM 21 Roe Aleman DO Unavailable Reason for Visit * Reason Comments Medication Refill Encounter Details Care Team Description Date [place] [address] [address] 11/21/2018 Refill [facility] - OP Exam [address] [address] Social History Date Tobacco Use [...]
--- OUTSIDE RECORDS SUMMARY | 2018-12-04 16:07 | XMS REPORT | Encounter Summary ---
Author Author [facility] Organization [facility] Address Unknown Phone Unavailable Care Team Providers Care Trainmaster Name Role Phone Karyn Anderson MD PCP Samuel Kelly DPM 21 Roe Aleman DO Unavailable Encounter Details Care Team Description Date [place] [address] [address] 11/20/2018 Orders Only [facility] - OP Exam [address] [address] Social History Date Tobacco Use [...] as of this encounter Progress Notes * Pepper Cross RN - 11/20/2018 8:17 AM TANK ERECTOR Pt needed CBC and CMP drawn. ERECTOR in this encounter Plan of Treatment Not on fileas of this encounter Visit Diagnoses Not on filein this encounter
--- OUTSIDE RECORDS SUMMARY | 2018-12-04 16:08 | XMS REPORT | Encounter Summary ---
Author Author [facility] Organization [facility] Address Unknown Phone Unavailable Care Team Providers Care Photographic Engineer Name Role Phone Karyn Anderson MD PCP Samuel Kelly DPM 21 Roe Aleman DO Unavailable Reason for Visit * Reason Comments Chemotherapy Heme/Onc Care * Treatment (Routine) Referred By Contact Referred To Contact Status Reason Specialty Diagnoses / [place] [address] [place] [phone] [place] [address] [address] Authorized Hematology Diagnoses Malignant neoplasm of short [...] Description Date [place] [address] [place] [address] [phone] 11/20/2018 [facility] - OP Treatment [address] [address] Social History Date Tobacco Use Types Packs/Day [...] * Patient Instructions* Marisela Martins RN - 11/20/2018 9:18 AM MEDIEVAL ENGLISH LITERATURE PROFESSOR Call Immediately to report the following: Uncontrolled nausea and/or vomiting, uncontrolled pain, or unusual bleeding. Temperature of 100.4 F or greater and/or any sign/symptom of infection (redness , warmth, tenderness) Painful mouth or difficulty swallowing Red, cracked, or painful hands and/or feet Diarrhea Swelling of arms or legs Rash Important Phone Numbers: Cancer Center Main Number (answered 24 hours a day) [phone] Cancer Center Scheduling (appointments) [phone] [id number] [facility] (for nutritional supplements) [phone] EVAL ENGLISH LITERATURE PROFESSOR in this encounter Medications at Time of [...] mg tabletIndications: BY MOUTH AT Rodarte's sarcoma ([facility]) BEDTIME DAILY. ON DAYS 1-4 OF EACH [...] 8 hours as needed (nausea and vomiting). 10/23/2018 11/21/2018 prochlorperazine maleate TAKE 1 TABLET 30 tablet 0 (COMPAZINE) 10 mg tablet BY MOUTH EVERY 6 HOURS NEEDED FOR NAUSEA OR VOMITING as of this encounter Progress Notes * Marisela Martins RN - 11/20/2018 9:16 AM MEDIEVAL ENGLISH LITERATURE PROFESSOR CHEMO NOTE Verified chemo consent signed and in chart. Verified initiate chemo order in O2 Blood return positive via: Rodriguez BSA and dose double checked (agree with orders as written) with: yes Labs/applicable tests checked: CBC and Comprehensive Metabolic Panel (CMP) Chemo regime: Drug/cycle/day Day 1 VAC Dactinomycin Rate verified and armband double checkwith second RN: yes Patient education offered and stated understanding. Denies questions at this time. Patient here for treatment. Patient was assessed by MD in clinic today. Labs within normal limits for treatment. Premeds administered. Treatment administered as ordered. Vesicant precautions maintained throughout. Therapy completed and tolerated well. Discharged home ambulatory. 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 - Give IV push over 2 minutes., 11/20/2018 11:40 AM MEDIEVAL ENGLISH LITERATURE PROFESSOR 1,500 mg 325 mL/hr cyclophosphamide (CYTOXAN) 1,500 mg in Given - New sodium chloride 0.9% (NS) 325 mL IVPB Bag 1,500 mg (1 g/m2 1.5 m2 Treatment plan recorded BSA), Intravenous, 325 mL, Administer over 1 Hours, ONCE, 1 dose, Tue11/20/18 at 1045, NURSING: To be administered by Chemotherapy Competency-validated nurse. NOTE: This is a HIGH ALERT Medication. SPECIAL TUBING REQUIRED , 11/20/2018 11:36 AM MEDIEVAL ENGLISH LITERATURE PROFESSOR 1.875 mg DACTINomycin (COSMEGEN) injection 1.875 Given mg 1.875 mg (1.25 mg/m2 1.5 m2 Treatment plan recorded BSA), Intravenous, ONCE, 1 dose, Tue11/20/18 at 1000, Give IV Push over 1-3 minutes. NURSING: To be administered by Chemotherapy Competency-validated nurse. AVOID EXTRAVASATION NOTE: This is a HIGH ALERT Medication., 11/20/2018 10:53 AM MEDIEVAL ENGLISH LITERATURE PROFESSOR 12 mg 300 mL/hr dexamethasone (DECADRON) 12 mg in sodium Given - New chloride 0.9% (NS) 50 mL IVPB Bag 12 mg, Intravenous, 50 mL, Administer over 10 Minutes, ONCE, 1 dose, Tue11/20/18 at 0915 11/20/2018 9:58 AM MEDIEVAL ENGLISH LITERATURE PROFESSOR 0.5 mg LORazepam (ATIVAN) injection 0.5-1 mg Given 0.5-1 mg, Intravenous, ONCE, 1 dose, Tue11/20/18 at 0915, PROTECT FROM LIGHT, 11/20/2018 10:01 AM MEDIEVAL ENGLISH LITERATURE PROFESSOR 0.25 mg palonosetron(+) (ALOXI) injection 0.25 Given mg 0.25 mg, Intravenous, ONCE, 1 dose, Tue11/20/18 at 0915 11/20/2018 11:25 AM MEDIEVAL ENGLISH LITERATURE PROFESSOR 2 mg 300 mL/hr vincristine (ONCOVIN) 2 mg in sodium Given - New chloride 0.9% (NS) 50 mL IVPB Bag 2 mg, Intravenous, 50 mL, Administer over 10 Minutes, ONCE, 1 dose, Tue11/20/18 at 0945, NURSING: To be administered by Chemotherapy Competency-validated nurse. NOTE: This is a HIGH ALERT Medication. SPECIAL TUBING REQUIRED , in this encounter
--- OUTSIDE RECORDS SUMMARY | 2018-12-04 16:08 | XMS REPORT | Encounter Summary ---
Author Author [facility] Organization [facility] Address Unknown Phone Unavailable Care Team Providers Care Consulting Networking Engineer Name Role Phone Karyn Anderson MD PCP Samuel Kelly DPM 21 Reo Aleman DO Unavailable Reason for Visit * Reason Comments Cancer Encounter Details Care Team Description Date Type Department Naomi, Kimberly, RAILCAR MECHANIC [address] [address] Rodarte's sarcoma (HCC) (Primary Dx) 11/13/2018 Office Visit [facility] - OP Exam [address] [address] Social History Date Tobacco Use [...] Vital Signs Time Taken Vital Sign Reading 11/13/2018 11:35 AM GRAVEL WEIGHER Blood Pressure 106/52 11/13/2018 11:35 AM GRAVEL WEIGHER Pulse 92 11/13/2018 11:35 AM GRAVEL WEIGHER Temperature 36.9 C (98.5 F) 11/13/2018 11:35 AM GRAVEL WEIGHER Respiratory Rate 16 11/13/2018 11:35 AM GRAVEL WEIGHER Oxygen Saturation 100% - Inhaled Oxygen - Concentration 11/13/2018 11:37 AM GRAVEL WEIGHER Weight 55.2 kg (121 lb 9.6 oz) 11/13/2018 11:37 AM GRAVEL WEIGHER Height 165.1 cm (5' 5") 11/13/2018 11:37 AM GRAVEL WEIGHER Body Mass Index 20.24 in this encounter Functional Status Date of Assessment Functional Status Response 11/13/2018 Does the patient have a hearing impairment: No 11/13/2018 Does the patient have a visual impairment: Yes 11/13/2018 Does the patient have impaired ambulation: No 11/13/2018 Does the patient have an activity of daily living No (ADL) impairment: 11/06/2018 Does the patient have an instrumental activity of No daily living (IADL) impairment: Date of Assessment Cognitive Status Response 11/13/2018 Does the patient have a cognitive impairment: No as of this encounter Progress Notes * [place]Kim[place] - 11/13/2018 11:30 AM GRAVEL WEIGHER Name: Evelin Mancilla : 1995 AGE: 22 y.o. DATE OF SERVICE: 11/13/2018 Subjective: Reason for Visit: Cancer Evelin Mancilla is a 22 y.o. female. [...] 02/21/2018, pathology revealing a poorly differentiated neoplasm, [facility] consultation called it a small round blue [...] is very high). She went to an carton making machine operator who concurred with the decision to proceed with the surgical resection and chemotherapy for the goal of attacking the disease lianna. She is not very latter day, and was okay with aborting the , [...] but cytopenias have limited that. Admitted to [facility] after 5th cycle, 3rd VAC, due to [...] to significant cytopenias). She is here at Day 8 ofIE. Sheis feeling good and felt significantly better after transfusion on 11/10/18. No n/v, constipation or diarrhea. No fevers or infectious concerns. Review of Systems Constitutional: Negative. HENT: Negative. Eyes: Negative. Respiratory: Negative. Cardiovascular: Negative. Gastrointestinal: Negative. Endocrine: Negative. Genitourinary: Negative. Musculoskeletal: Negative. Skin: Negative. Allergic/Immunologic: Negative. Neurological: Negative. Hematological: Negative. Psychiatric/Behavioral: Negative. Objective: acetaminophen (TYLENOL) 325 mg tablet Take [...] at bedtime as needed for Sleep. Vitals: 11/13/18 1135 11/13/18 1137 BP: 106/52 Pulse: 92 Resp: 16 Temp: 36.9 C (98.5 F) TempSrc: Oral Oral SpO2: 100% Weight: 55.2 kg (121 lb 9.6 oz) 55.2 kg (121 lb 9.6 oz) Height: 165.1 cm (65") 165.1 cm (65") Body mass index is 20.24 kg/m. Pain Score: Zero Fatigue Scale: 0-None [...] Normocephalic. Mouth/Throat: Oropharynx is clear and moist. Eyes: Pupils are equal, round, and reactive to light. Cardiovascular: Normal rate and regular rhythm. Pulmonary/Chest: Effort normal and breath sounds normal. Abdominal: Soft. She exhibits no mass. Musculoskeletal: Normal range of motion. Lymphadenopathy: She has no cervical adenopathy. Neurological: She is alert and oriented to person, place, and time. Skin: No rash noted. Psychiatric: She has a normal mood and affect. Her behavior is normal. Nursing note and vitals reviewed. CBC w diff Lab Results Component Value Date/Time WBC 1.6 (L) 11/13/2018 11:38 AM RBC 2.90 (L) 11/13/2018 11:38 AM HGB 9.3 (L) 11/13/2018 11:38 AM HCT 27.3 (L) 11/13/2018 11:38 AM MCV 94.0 11/13/2018 11:38 AM MCH 31.9 11/13/2018 11:38 AM MCHC 33.9 11/13/2018 11:38 AM RDW 19.3 (H) 11/13/2018 11:38 AM PLTCT 43 (L) 11/13/2018 11:38 AM MPV 7.5 11/13/2018 11:38 AM Lab Results Component Value Date/Time NEUT 95 (H) 11/09/2018 10:13 AM ANC 1.32 (L) 11/13/2018 11:38 AM ANC 6.10 11/09/2018 10:13 AM LYMA 3 (L) 11/09/2018 10:13 AM ALC 0.20 (L) 11/09/2018 10:13 AM JADE 2 (L) 11/09/2018 10:13 AM AMC 0.10 11/09/2018 10:13 AM EOSA 0 11/09/2018 10:13 AM AEC 0.00 11/09/2018 10:13 AM BASA 0 11/09/2018 10:13 AM ABC 0.00 11/09/2018 10:13 AM Assessment and Plan: Problem List Items Addressed This Visit Oncology Rodarte's sarcoma (HCC) - Primary PLAN: CBC reviewed and she was given a copy. She will see Dr. Adams back in 1 week as scheduled. Questions and concerns addressed. She is in agreement with plan. 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
--- OUTSIDE RECORDS SUMMARY | 2018-12-04 16:08 | XMS REPORT | Encounter Summary ---
Author Author [facility] Organization [facility] Address Unknown Phone Unavailable Care Team Providers Care Drying Machine Operator Name Role Phone Karyn Anderson MD PCP Samuel Kelly DPM 21 Roe Aleman DO Unavailable Encounter Details Care Team Description Date Type Department Kimberly Salgado APRN [address] [address] 11/13/2018 [facility] - OP Lab [address] [address] Social History Date Tobacco Use [...] 3 mg tabletIndications: tablet by Rodarte's sarcoma ([facility]) mouth every 8 hours. 07/15/2018 [...] g 1 40%(#)Indications: liberally to Rodarte's sarcoma ([facility]) perianal area as needed loratadine (CLARITIN) 10 Take 10 mg by 0 mg tablet mouth every morning. 05/03/2018 LORazepam (ATIVAN) 0.5 mg Take one 60 tablet 1 tablet tablet by mouth every 6 hours as needed for Nausea (anxiety and insomnia). 10/26/2018 OLANZapine (ZYPREXA) 10 TAKE 1 TABLET 12 tablet 5 mg tabletIndications: BY MOUTH AT Rodarte's sarcoma ([facility]) BEDTIME DAILY. ON DAYS 1-4 [...] tablet 5 tabletIndications: tablet by Rodarte's sarcoma ([facility]) mouth every 8 hours as needed (nausea and vomiting). 10/23/2018 11/21/2018 prochlorperazine maleate TAKE 1 TABLET 30 tablet 0 (COMPAZINE) 10 mg tablet BY MOUTH EVERY 6 HOURS NEEDED FOR NAUSEA OR VOMITING as of this encounter Plan of Treatment Not on fileas of this encounter Procedures Comments Procedure Name Priority Date/Time Associated Diagnosis CBC AND DIFF Routine 11/13/2018 Rodarte's sarcoma (HCC) 11:38 AM FRENCH BINDER COMPREHENSIVE METABOLIC Routine 11/13/2018 Rodarte's sarcoma (HCC) PANEL 11:38 AM FRENCH BINDER in this encounter Results * COMPREHENSIVE METABOLIC PANEL (11/13/2018 11:38 AM FRENCH BINDER) Sodium 137 137 - 147 MMOL/L [facility] Potassium 3.6 3.5 - 5.1 MMOL/L [facility] Chloride 102 98 - 110 MMOL/L [facility] Glucose 116 (H) 70 - 100 MG/DL [facility] Blood Urea Nitrogen 13 7 - 25 MG/DL [facility] Creatinine 0.40 0.4 - 1.00 MG/DL [facility] Calcium 8.9 8.5 - 10.6 MG/DL [facility] Total Protein 6.3 6.0 - 8.0 G/DL [facility] Total Bilirubin 0.7 0.3 - 1.2 MG/DL [facility] Albumin 4.4 3.5 - 5.0 G/DL [facility] Alk Phosphatase 95 25 - 110 U/L [facility] AST (SGOT) 26 7 - 40 U/L [facility] CO2 30 21 - 30 MMOL/L [facility] [...] Blood Performing Organization Address City/State/Zipcode Phone Number MAIN [facility] [address] [place] [address] * CBC AND DIFF (11/13/2018 11:38 AM FRENCH BINDER) White Blood Cells 1.6 (L) 4.5 - 11.0 K/UL [facility] RBC 2.90 (L) 4.0 - 5.0 M/UL [facility] Hemoglobin 9.3 (L) 12.0 - 15.0 GM/DL [facility] Hematocrit 27.3 (L) 36 - 45 % [facility] [place] MCV 94.0 80 - 100 FL [facility] [place] MCH 31.9 26 - 34 PG [facility] [place] MCHC 33.9 32.0 - 36.0 G/DL [facility] RDW 19.3 (H) 11 - 15 % [facility] Platelet Count 43 (L) 150 - 400 K/UL [facility] MPV 7.5 7 - 11 FL [facility] Segmented Neutrophils 76 41 - 77 % [facility] [place] Bands 6 0 - 10 % [facility] [place] Lymphocytes 11 (L) 24 - 44 % [facility] [place] Monocytes 7 4 - 12 % [facility] [place] ANISO PRESENT [facility] Platelet Estimate MKD DEC [facility] [place] Absolute Neutrophil Count 1.32 (L) 1.8 - 7.0 K/UL [facility] Specimen Blood Performing Organization Address City/State/Zipcode Phone Number [facility] [address] [address] in this encounter Visit Diagnoses 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
--- OUTSIDE RECORDS SUMMARY | 2018-12-04 16:08 | XMS REPORT | Encounter Summary ---
Author Author [facility] Organization [facility] Address Unknown Phone Unavailable Care Team Providers Care Clinical Documentation Specialist Name Role Phone Karyn Anderson MD PCP Samuel Kelly DPM 21 Roe Aleman DO Unavailable Reason for Visit * Reason Comments Heme/Onc Care Encounter Details Care Team Description Date Type Department Kimberly Salgado APRN [address] [address] 11/13/2018 [facility] - OP Treatment [address] [address] Social History Date Tobacco Use [...] * Patient Instructions* Marisela Martins RN - 11/13/2018 1:58 PM ENGINEER ASSISTANT Call Immediately to report the following: Uncontrolled nausea and/or vomiting, uncontrolled pain, or unusual bleeding. Temperature of 100.4 F or greater and/or any sign/symptom of infection (redness , warmth, tenderness) Painful mouth or difficulty swallowing Red, cracked, or painful hands and/or feet Diarrhea Swelling of arms or legs Rash Important Phone Numbers: OP Cancer Center Main Number (answered 24 hours a day) [phone] Cancer Center Scheduling (appointments) [phone] [id number] [facility] (for nutritional supplements) [phone] NEER ASSISTANT in this encounter Medications at Time of [...]
--- OUTSIDE RECORDS SUMMARY | 2018-12-04 16:08 | XMS REPORT | Encounter Summary ---
Author Author [facility] Organization [facility] Address Unknown Phone Unavailable Care Team Providers Care National Sales Name Role Phone Karyn Anderson MD PCP Samuel Kelly DPM 21 Roe Aleman DO Unavailable Encounter Details Care Team Description Date [place] [address] [address] 11/20/2018 [facility] - OP Lab [address] [address] Social History Date Tobacco Use [...] mg tabletIndications: tablet by Rodarte's sarcoma ([facility]) mouth every 8 hours. 07/15/2018 doxycycline (VIBRAMYCIN) [...] 1 40%(#)Indications: liberally to Rodarte's sarcoma ([facility]) perianal area as needed loratadine (CLARITIN) 10 Take 10 mg by 0 mg tablet mouth every morning. 05/03/2018 LORazepam (ATIVAN) 0.5 mg Take one 60 tablet 1 tablet tablet by mouth every 6 hours as needed for Nausea (anxiety and insomnia). 10/26/2018 OLANZapine (ZYPREXA) 10 TAKE 1 TABLET 12 tablet 5 mg tabletIndications: BY MOUTH AT Rodarte's sarcoma ([facility]) BEDTIME DAILY. ON DAYS 1-4 OF EACH [...] 5 tabletIndications: tablet by Rodarte's sarcoma ([facility]) mouth every 8 hours as needed (nausea and vomiting). 10/23/2018 11/21/2018 prochlorperazine maleate TAKE 1 TABLET 30 tablet 0 (COMPAZINE) 10 mg tablet BY MOUTH EVERY 6 HOURS NEEDED FOR NAUSEA OR VOMITING as of this encounter Plan of Treatment Not on fileas of this encounter Procedures Comments Procedure Name Priority Date/Time Associated Diagnosis CBC AND DIFF Routine 11/20/2018 Rodarte's tumor (HCC) 8:45 AM SERVICE TESTER COMPREHENSIVE METABOLIC Routine 11/20/2018 Rodarte's tumor (HCC) PANEL 8:45 AM SERVICE TESTER in this encounter Results * CBC AND DIFF (11/20/2018 8:45 AM SERVICE TESTER) White Blood Cells 12.7 (H) 4.5 - 11.0 K/UL [facility] [place] RBC 3.12 (L) 4.0 - 5.0 M/UL [facility] [place] Hemoglobin 10.3 (L) 12.0 - 15.0 GM/DL [facility] [place] Hematocrit 30.5 (L) 36 - 45 % [facility] [place] MCV 97.9 80 - 100 FL [facility] MCH 33.1 26 - 34 PG [facility] [place] MCHC 33.9 32.0 - 36.0 G/DL [facility] [place] RDW 22.6 (H) 11 - 15 % [facility] [place] Platelet Count 108 (L) 150 - 400 K/UL [facility] [place] MPV 8.4 7 - 11 FL [facility] Segmented Neutrophils 54 41 - 77 % [facility] [place] Bands 19 (H) 0 - 10 % [facility] [place] Lymphocytes 8 (L) 24 - 44 % [facility] [place] Monocytes 5 4 - 12 % [facility] Metamyelocyte 11 % [facility] [place] Myelocyte 3 % [facility] [place] ANISO PRESENT [facility] [place] POIK PRESENT [facility] [place] Large Platelets [facility] Teardrop [facility] [place] Platelet Estimate SLT DEC [facility] [place] Absolute Neutrophil Count 9.27 (H) 1.8 - 7.0 K/UL [facility] Specimen Blood Performing Organization Address City/[facility]/Zipcode Phone Number [facility] [place] [address] [address] * COMPREHENSIVE METABOLIC PANEL (11/20/2018 8:45 AM SERVICE TESTER) Sodium 141 137 - 147 MMOL/L [facility] [...] Address City/State/Zipcode Phone Number [facility] [address] [place] [address] in this encounter Visit Diagnoses Diagnosis 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
--- OUTSIDE RECORDS SUMMARY | 2018-12-04 16:09 | XMS REPORT | Encounter Summary ---
Author Author [facility] Organization [facility] Address Unknown Phone Unavailable Care Team Providers Care Assembler Molded Frames Name Role Phone Karyn Anderson MD PCP Samuel Kelly DPM 21 Roe Aleman DO Unavailable Reason for Visit * Reason Comments Treatment Anemia * Treatment (Routine) Referred By Contact Referred To Contact Status Reason Specialty Diagnoses / [place] [address] [place] [address] [place] [address] [place] [address] Authorized Hematology Diagnoses Malignant neoplasm of short [...] Description Date [place] [address] [address] [phone] 11/10/2018 [facility] - OP Treatment [address] [address] Social History Date Tobacco Use [...] Vital Signs Time Taken Vital Sign Reading 11/10/2018 10:08 AM RX SPECIALIST Blood Pressure 96/61 11/10/2018 10:08 AM RX SPECIALIST Pulse 98 11/10/2018 8:10 AM RX SPECIALIST Temperature 36.8 C (98.2 F) 11/10/2018 10:08 AM RX SPECIALIST Respiratory Rate 18 11/10/2018 8:10 AM RX SPECIALIST Oxygen Saturation 99% - Inhaled Oxygen - Concentration - Weight - 11/10/2018 8:10 AM RX SPECIALIST Height 165.1 cm (5' 5") - Body Mass Index - in this encounter Functional Status Date of Assessment Functional Status Response 11/06/2018 Does the patient have a hearing impairment: No 11/06/2018 Does the patient have a visual impairment: Yes 11/06/2018 Does the patient have impaired ambulation: No 11/06/2018 Does the patient have an activity of daily living No (ADL) impairment: 11/06/2018 Does the patient have an instrumental activity of No daily living (IADL) impairment: Date of Assessment Cognitive Status Response 11/06/2018 Does the patient have a cognitive impairment: No as of this encounter Discharge Instructions * Patient Instructions* Marisela Martins RN - 11/10/2018 12:18 PM RX SPECIALIST Call Immediately to report the following: Uncontrolled nausea and/or vomiting, uncontrolled pain, or unusual bleeding. Temperature of 100.4 F or greater and/or any sign/symptom of infection (redness , warmth, tenderness) Painful mouth or difficulty swallowing Red, cracked, or painful hands and/or feet Diarrhea Swelling of arms or legs Rash Important Phone Numbers: OP Cancer Center Main Number (answered 24 hours a day) [phone] Cancer Center Scheduling (appointments) [phone] [id number] [facility] (for nutritional supplements) [phone] SPECIALIST in this encounter Medications at Time of Discharge Start Date End Date Medication Sig Dispensed Refills acetaminophen (TYLENOL) Take 325 mg 0 325 mg tablet by mouth every 4 hours as needed for Pain. 08/14/2018 acyclovir (ZOVIRAX) 800 Take one 90 tablet 3 mg tabletIndications: tablet by Rodarte's sarcoma ([facility]) mouth every 8 hours. 07/15/2018 doxycycline [...] BY MOUTH AT Rodarte's sarcoma ([facility]) BEDTIME DAILY. ON DAYS 1-4 OF [...] Progress Notes * Marisela Martins RN - 11/10/2018 12:18 PM RX SPECIALIST Patient here for IV fluids, antiemetics, and Neulasta. She fainted momentarily in the wheelchair this morning. One liter of normal saline administered as ordered. She feels a little better after having fluids this AM. Discharged ambulatory and will proceed to [facility] for her blood transfusion. SPECIALIST in this encounter Miscellaneous Notes * Addendum Note - Esterlla Godoy - 11/13/2018 9:45 AM RX SPECIALIST Encounter addended by: Estrella Godoy on: 11/13/2018 9:45 AM Actions taken: Charge Capture section accepted SPECIALIST in this encounter Plan of Treatment Not on fileas of this encounter Procedures Comments Procedure Name Priority Date/Time Associated Diagnosis POC GLUCOSE 11/10/2018 8:18 AM RX SPECIALIST in this encounter Results * POC GLUCOSE (11/10/2018 8:18 AM RX SPECIALIST) Glucose, POC 87 70 - 100 MG/DL [facility] Performing Organization Address City/State/Zipcode Phone Number [facility] LAB [address] [place] [address] in this encounter Visit Diagnoses 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 Administered Medications Action Date Dose Rate Site Medication Order MAR Action 11/10/2018 8:25 AM RX SPECIALIST 8 mg 300 mL/hr dexamethasone (DECADRON) 8 mg in sodium Given - New chloride 0.9% (NS) 50 mL IVPB Bag 8 mg, Intravenous, 50 mL, Administer over 10 Minutes, ONCE, 1 dose, Tue11/10/18 at 0815 11/10/2018 8:24 AM RX SPECIALIST 0.25 mg palonosetron(+) (ALOXI) injection 0.25 Given mg 0.25 mg, Intravenous, ONCE, 1 dose, Tue11/10/18 at 0815 11/10/2018 10:02 AM RX SPECIALIST 6 mg Abdominal Tissue pegfilgrastim (NEULASTA) syringe 6 mg Given 6 mg, Subcutaneous, ONCE, 1 dose, Tue11/10/18 at 0815, -- Not for IV Push administration --, 11/10/2018 8:24 AM RX SPECIALIST 1,000 mL 800 mL/hr sodium chloride 0.9 % infusion Given - New 1,000 mL, 1,000 mL, Intravenous, at 800 Bag mL/hr, ONCE, 1 dose, Tue11/10/18 at 0815 in this encounter
--- OUTSIDE RECORDS SUMMARY | 2018-12-04 16:09 | XMS REPORT | Encounter Summary ---
Author Author [facility] Organization [facility] Address Unknown Phone Unavailable Care Team Providers Care Allergist/Immunologist Physician Name Role Phone Karyn Anderson MD PCP Samuel Kelly DPM 21 Roe Aleman DO Unavailable Encounter Details Care Team Description Date Type Department Kimberly Salgado APRN [address] [address] 11/08/2018 [facility] - OP Lab [address] [address] Social History Date Tobacco Use [...] 3 mg tabletIndications: tablet by Rodarte's sarcoma ([facility]) mouth every 8 hours. 07/15/2018 doxycycline [...] g 1 40%(#)Indications: liberally to Rodarte's sarcoma ([facility]) perianal area as needed loratadine (CLARITIN) 10 Take 10 mg by 0 mg tablet mouth every morning. 05/03/2018 LORazepam (ATIVAN) 0.5 mg Take one 60 tablet 1 tablet tablet by mouth every 6 hours as needed for Nausea (anxiety and insomnia). 10/26/2018 OLANZapine (ZYPREXA) 10 TAKE 1 TABLET 12 tablet 5 mg tabletIndications: BY MOUTH AT Rodarte's sarcoma ([facility]) BEDTIME DAILY. ON DAYS 1-4 OF [...] tablet 5 tabletIndications: tablet by Rodarte's sarcoma ([facility]) mouth every 8 hours as needed (nausea and vomiting). 10/23/2018 11/21/2018 prochlorperazine maleate TAKE 1 TABLET 30 tablet 0 (COMPAZINE) 10 mg tablet BY MOUTH EVERY 6 HOURS NEEDED FOR NAUSEA OR VOMITING as of this encounter Plan of Treatment Not on fileas of this encounter Visit Diagnoses Not on filein this encounter
--- OUTSIDE RECORDS SUMMARY | 2018-12-04 16:09 | XMS REPORT | Encounter Summary ---
Author Author [facility] Organization [facility] Address Unknown Phone Unavailable Care Team Providers Care Management Scientist Name Role Phone Karyn Anderson MD PCP Samuel Kelly DPM 21 Roe Aleman DO Unavailable Reason for Visit * Reason Comments Treatment Nausea * Treatment (Routine) Referred By Contact Referred To Contact Status Reason Specialty Diagnoses / [place] [address] [place] [address] [place] [address] [place] [address] Authorized Hematology Diagnoses Malignant neoplasm of short [...] Description Date Type Department Kimberly Salgado APRN [address] [place] [address] [phone] 11/09/2018 [facility] - OP Treatment [address] [address] Social History Date Tobacco [...] Vital Signs Time Taken Vital Sign Reading 11/09/2018 9:55 AM ELEMENTARY SCHOOL COUNSELOR Blood Pressure 92/44 11/09/2018 9:55 AM ELEMENTARY SCHOOL COUNSELOR Pulse 101 11/09/2018 9:44 AM ELEMENTARY SCHOOL COUNSELOR Temperature 36.4 C (97.5 F) 11/09/2018 9:55 AM ELEMENTARY SCHOOL COUNSELOR Respiratory Rate 18 11/09/2018 9:47 AM ELEMENTARY SCHOOL COUNSELOR Oxygen Saturation 100% - Inhaled Oxygen - Concentration 11/09/2018 8:04 AM ELEMENTARY SCHOOL COUNSELOR Weight 55.4 kg (122 lb 3.2 oz) 11/09/2018 8:04 AM ELEMENTARY SCHOOL COUNSELOR Height 165.1 cm (5' 5") 11/09/2018 8:04 AM ELEMENTARY SCHOOL COUNSELOR Body Mass Index 20.34 in this encounter Functional Status Date of [...] * Patient Instructions* Marisela Martins RN - 11/09/2018 8:51 AM ELEMENTARY SCHOOL COUNSELOR Call Immediately to report the following: Uncontrolled nausea and/or vomiting, uncontrolled pain, or unusual bleeding. Temperature of 100.4 F or greater and/or any sign/symptom of infection (redness , warmth, tenderness) Painful mouth or difficulty swallowing Red, cracked, or painful hands and/or feet Diarrhea Swelling of arms or legs Rash Important Phone Numbers: OP Cancer Center Main Number (answered 24 hours a day) [phone] Cancer Center Scheduling (appointments) [phone] [id number] [facility] (for nutritional supplements) [phone] ENTARY SCHOOL COUNSELOR in this encounter Medications at Time of [...] Progress Notes * Marisela Martins RN - 11/09/2018 8:52 AM ELEMENTARY SCHOOL COUNSELOR Patient here for treatment day 4. Evelin's mother states that she had a bad night last night and was very nauseated. She also states that at one point it was difficult to wake her up. She is again nauseated this morning and remains very fatigued. Dr. Adams in to see patient. Chemotherapy is to be held today. Antiemetics and one liter of normal saline administered as ordered. Patient requests compazine for continued nausea. 0944 She states that she feels terrible, She feels like her heart is racing.See VS. CBC drawn and Hgb 6.8. [facility] notified that patient will need blood transfusion.Set up for tomorrow at [facility]. IV fluids completed. Patient dismissed with [place] infusing via ambulatory pump to run over 19 hours. To CC at 0800 for IV fluids and Neulasta. ENTARY SCHOOL COUNSELOR in this encounter Miscellaneous Notes * Addendum Note - Estrella Godoy - 11/10/2018 10:26 AM ELEMENTARY SCHOOL COUNSELOR Encounter addended by: Estrella Godoy on: 11/10/2018 10:26 AM Actions taken: Charge Capture section accepted ENTARY SCHOOL COUNSELOR * Addendum Note - Marisela Martins RN - 11/09/2018 5:52 PM ELEMENTARY SCHOOL COUNSELOR Encounter addended by: Marisela Martins RN on: 11/09/2018 5:52 PM Actions taken: Vitals modified ENTARY SCHOOL COUNSELOR in this encounter Plan of Treatment Not on fileas of this encounter Procedures Comments Procedure Name Priority Date/Time Associated Diagnosis CBC AND DIFF Routine 11/09/2018 Rodarte's sarcoma (HCC) 10:13 AM ELEMENTARY SCHOOL COUNSELOR in this encounter Results * CBC AND DIFF (11/09/2018 10:13 AM ELEMENTARY SCHOOL COUNSELOR) White Blood Cells 6.4 4.5 - 11.0 K/UL [facility] RBC 2.06 (L) 4.0 - 5.0 M/UL [facility] Hemoglobin 6.8 (L) 12.0 - 15.0 GM/DL [facility] Hematocrit 19.9 (L) 36 - 45 % [facility] MCV 96.4 80 - 100 FL [facility] MCH 33.1 26 - 34 PG [facility] MCHC 34.3 32.0 - 36.0 G/DL [facility] RDW 22.5 (H) 11 - 15 % [facility] Platelet Count 164 150 - 400 K/UL [facility] MPV 7.2 7 - 11 FL [facility] Neutrophils 95 (H) 41 - 77 % [facility] Lymphocytes 3 (L) 24 - 44 % [facility] Monocytes 2 (L) 4 - 12 % [facility] [place] Eosinophils 0 0 - 5 % [facility] Basophils 0 0 - 2 % [facility] Absolute Neutrophil Count 6.10 1.8 - 7.0 K/UL [facility] Absolute Lymph Count 0.20 (L) 1.0 - 4.8 K/UL [facility] Absolute Monocyte Count 0.10 0 - 0.80 K/UL [facility] Absolute Eosinophil Count 0.00 0 - 0.45 K/UL [facility] Absolute Basophil Count 0.00 0 - 0.20 K/UL [facility] Specimen Blood Performing Organization Address City/State/Zipcode Phone Number [facility] [address] [address] in this encounter Visit Diagnoses 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 Administered Medications Action Date Dose Rate Site Medication Order MAR Action 11/09/2018 8:30 AM ELEMENTARY SCHOOL COUNSELOR 8 mg 300 mL/hr dexamethasone (DECADRON) 8 mg in sodium Given - New chloride 0.9% (NS) 50 mL IVPB Bag 8 mg, Intravenous, 50 mL, Administer over 10 Minutes, ONCE, 1 dose, Luly 11/09/18 at 0815 11/09/2018 10:58 AM ELEMENTARY SCHOOL COUNSELOR 1.575 g 53.5 mL/hr mesna (MESNEX) 1.575 g in sodium Given - New chloride 0.9% (NS) 1,015.75 mL IVPB Bag 1.575 g (1.05 g/m2 1.5 m2 Treatment plan recorded BSA), Intravenous, 1,015.75 mL, Administer over 19 Hours, ONCE, 1 dose, [facility] 11/09/18 at 1015, infuse via CADD PLUS ambulatory pump, 11/09/2018 8:15 AM ELEMENTARY SCHOOL COUNSELOR 16 mg ondansetron (ZOFRAN) 16 mg in sodium Given - New chloride 0.9% (NS) IVPB Bag 16 mg, Intravenous, 58 mL, Administer over 15 Minutes, ONCE, 1 dose, Luly 11/09/18 at 0815 11/09/2018 9:53 AM ELEMENTARY SCHOOL COUNSELOR 10 mg prochlorperazine (COMPAZINE) injection Given 10 mg 10 mg, Intravenous, EVERY 6 HOURS PRN, Starting Luly 11/09/18 at 0941, Until Tue11/14/18 at 0209, Nausea/Vomiting Injectable, PROTECT FROM LIGHT -- May be given undiluted, or each 5mg may be diluted with 9 mL of NS to facilitate titration., 11/09/2018 8:13 AM ELEMENTARY SCHOOL COUNSELOR 1,000 mL 800 mL/hr sodium chloride 0.9 % infusion Given - New 1,000 mL, 1,000 mL, Intravenous, at 800 Bag mL/hr, ONCE, 1 dose, Luly 11/09/18 at 0815 in this encounter
--- OUTSIDE RECORDS SUMMARY | 2018-12-04 16:09 | XMS REPORT | Encounter Summary ---
Author Author [facility] Organization [facility] Address Unknown Phone Unavailable Care Team Providers Care Barge Pilot Name Role Phone Karyn Anderson MD PCP Samuel Kelly DPM 21 Roe Aleman DO Unavailable Encounter Details Care Team Description Date [place] [address] [address] Drug-induced anemia (Primary Dx) 11/09/2018 Orders Only [facility] - OP Exam [address] [address] Social History Date Tobacco Use [...] as of this encounter Progress Notes * Ailin Virgen RN - 11/09/2018 10:37 AM CONCRETER Marisela iron worker foreman reported that patient is symptomatic for anemia, CBC was drawn and Hgb 6.8. Patient would prefer to have transfusion at [place] where she has previously had blood transfusions. I called [facility] and there was no openings today. Patient set up for tomorrow 11/10 at 10:30 am check in and 11:00 transfusion 2 units. All orders faxed to [phone]/ . Reviewed with and appointment date/time given to Tyler and her mother. RETER in this encounter Plan of Treatment Order Schedule Name Priority Associated Diagnoses Expected: 11/10/2018, Expires: 11/09/2019 TYPE & CROSSMATCH Routine Drug-induced anemia Expected: 11/10/2018, Expires: 11/09/2019 TRANSFUSE RBC'S NON-BLEEDING PT Routine Drug-induced anemia as of this encounter Visit Diagnoses Diagnosis Drug-induced anemia - Primary Other specified anemias in this encounter
--- OUTSIDE RECORDS SUMMARY | 2018-12-04 16:09 | XMS REPORT | Encounter Summary ---
Author Author [facility] Organization [facility] Address Unknown Phone Unavailable Care Team Providers Care Radiotelegraph Operator Name Role Phone Karyn Anderson MD PCP Samuel Kelly DPM 21 Roe Aleman DO Unavailable Encounter Details Care Team Description Date [place] [address] [address] 11/09/2018 Orders Only [facility] - OP Exam [address] [address] Social History Date Tobacco Use [...]
--- OUTSIDE RECORDS SUMMARY | 2018-12-04 16:09 | XMS REPORT | Encounter Summary ---
Author Author [facility] Organization [facility] Address Unknown Phone Unavailable Care Team Providers Care Fast Foods Worker Name Role Phone Karyn Anderson MD PCP Samuel Kelly DPM 21 Roe Aleman DO Unavailable Encounter Details Care Team Description Date Type Department Kimberly Salgado APRN [address] [address] 11/09/2018 [facility] - OP Lab [address] [address] Social History Date Tobacco Use [...] 3 mg tabletIndications: tablet by Rodarte's sarcoma ([facility]) mouth every 8 hours. 07/15/2018 [...] g 1 40%(#)Indications: liberally to Rodarte's sarcoma ([facility]) perianal area as needed loratadine (CLARITIN) 10 Take 10 mg by 0 mg tablet mouth every morning. 05/03/2018 LORazepam (ATIVAN) 0.5 mg Take one 60 tablet 1 tablet tablet by mouth every 6 hours as needed for Nausea (anxiety and insomnia). 10/26/2018 OLANZapine (ZYPREXA) 10 TAKE 1 TABLET 12 tablet 5 mg tabletIndications: BY MOUTH AT Rodarte's sarcoma ([facility]) BEDTIME DAILY. ON DAYS 1-4 [...] tablet 5 tabletIndications: tablet by Rodarte's sarcoma ([facility]) mouth every 8 hours as needed (nausea and vomiting). 10/23/2018 11/21/2018 prochlorperazine maleate TAKE 1 TABLET 30 tablet 0 (COMPAZINE) 10 mg tablet BY MOUTH EVERY 6 HOURS NEEDED FOR NAUSEA OR VOMITING as of this encounter Plan of Treatment Not on fileas of this encounter Visit Diagnoses Not on filein this encounter
--- OUTSIDE RECORDS SUMMARY | 2018-12-04 16:10 | XMS REPORT | Encounter Summary ---
Author Author [facility] Organization [facility] Address Unknown Phone Unavailable Care Team Providers Care Side Seam Envelope Machine Operator Name Role Phone Karyn Anderson MD PCP Samuel Kelly DPM 21 Roe Aleman DO Unavailable Reason for Visit * Reason Comments Treatment Nausea * Treatment (Routine) Referred By Contact Referred To Contact Status Reason Specialty Diagnoses / [place] [address] [place] [address] [place] [address] [place] [phone] Authorized Hematology Diagnoses Malignant neoplasm of short [...] Description Date Type Department Kimberly Salgado APRN [address] [place] [address] [phone] 11/08/2018 [facility] - OP Treatment [address] [address] Social History Date Tobacco Use [...] Vital Signs Time Taken Vital Sign Reading 11/08/2018 2:35 PM MELT SUPERINTENDANT Blood Pressure 107/66 11/08/2018 2:35 PM MELT SUPERINTENDANT Pulse 102 11/08/2018 2:35 PM MELT SUPERINTENDANT Temperature 36.6 C (97.9 F) 11/08/2018 2:35 PM MELT SUPERINTENDANT Respiratory Rate 18 11/08/2018 2:35 PM MELT SUPERINTENDANT Oxygen Saturation 100% - Inhaled Oxygen - Concentration 11/08/2018 8:04 AM MELT SUPERINTENDANT Weight 54.9 kg (121 lb) 11/08/2018 8:04 AM MELT SUPERINTENDANT Height 165.1 cm (5' 5") 11/08/2018 8:04 AM MELT SUPERINTENDANT Body Mass Index 20.14 in this encounter Functional Status Date of [...] * Patient Instructions* Marisela Martins RN - 11/08/2018 9:52 AM MELT SUPERINTENDANT Call Immediately to report the following: Uncontrolled nausea and/or vomiting, uncontrolled pain, or unusual bleeding. Temperature of 100.4 F or greater and/or any sign/symptom of infection (redness , warmth, tenderness) Painful mouth or difficulty swallowing Red, cracked, or painful hands and/or feet Diarrhea Swelling of arms or legs Rash Important Phone Numbers: OP Cancer Center Main Number (answered 24 hours a day) [phone] Cancer Center Scheduling (appointments) [phone] [id number] Cancer Action (for nutritional supplements) [phone] SUPERINTENDANT in this encounter Medications at Time of Discharge Start Date End Date Medication Sig Dispensed Refills acetaminophen (TYLENOL) Take 325 mg 0 325 mg tablet by mouth every 4 hours as needed for Pain. 08/14/2018 acyclovir (ZOVIRAX) 800 Take one 90 tablet 3 mg tabletIndications: tablet by Rodarte's sarcoma ([facility]) mouth every 8 hours. 07/15/2018 [...] BY MOUTH AT Rodarte's sarcoma ([facility]) BEDTIME DAILY. ON DAYS 1-4 [...] Progress Notes * Marisela Martins RN - 11/08/2018 9:48 AM MELT SUPERINTENDANT CHEMO NOTE Verified chemo consent signed and in chart. Verified initiate chemo order in O2 Blood return positive via: Rodriguez BSA and dose double checked (agree with orders as written) with: yes Labs/applicable tests checked: UA Chemo regime: Drug/cycle/day Day 3 IE Rate verified and armband double checkwith second RN: yes Patient education offered and stated understanding. Denies questions at this time. Patient here for treatment day 3. C/O slight nausea this AM and extreme fatigue. Appetite remains good. No dizziness or trouble with urination. UA and IV fluids ordered today. Premeds and one liter of normal saline administered. Requests extra medication for nausea. Compazine ordered and administered. Treatment administered as ordered. 1300 Requests ativan for nausea. Ordered and administered. Treatment completed and tolerated well. Main complaint is that of feeling extremely tired. VS stable. Dismissed home with Mesna infusing via ambulatory infusion pump to run over 19 hours. SUPERINTENDANT in this encounter Miscellaneous Notes * Addendum Note - Estrella Godoy - 11/09/2018 8:52 AM MELT SUPERINTENDANT Encounter addended by: Estrella Godoy on: 11/09/2018 8:52 AM Actions taken: Charge Capture section accepted SUPERINTENDANT in this encounter Plan of Treatment Not on fileas of this encounter Procedures Comments Procedure Name Priority Date/Time Associated Diagnosis URINALYSIS DIPSTICK Routine 11/08/2018 Rodarte's sarcoma (HCC) 10:12 AM MELT SUPERINTENDANT in this encounter Results * URINALYSIS DIPSTICK (11/08/2018 10:12 AM MELT SUPERINTENDANT) Color,UA YELLOW [facility] [place] [place] Turbidity,UA CLEAR CLEAR-CLEAR [facility] Specific [place]-Urine 1.015 1.003 - 1.035 [facility] pH,UA 6.5 5.0 - 8.0 [facility] Protein,UA NEG NEG-NEG [facility] Glucose,UA NEG NEG-NEG [facility] Ketones,UA 1+ (A) NEG-NEG [facility] [place] Bilirubin,UA NEG NEG-NEG [facility] Blood,UA NEG NEG-NEG [facility] Urobilinogen,UA NORMAL NORM-NORMAL [facility] [place] Nitrite,UA NEG NEG-NEG [facility] [place] Leukocytes,UA NEG NEG-NEG [facility] Specimen Urine - Urine Performing Organization Address City/State/Zipcode Phone Number 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 Administered Medications Action Date Dose Rate Site Medication Order MAR Action 11/08/2018 8:50 AM MELT SUPERINTENDANT 8 mg 300 mL/hr dexamethasone (DECADRON) 8 mg in sodium Given - New chloride 0.9% (NS) 50 mL IVPB Bag 8 mg, Intravenous, 50 mL, Administer over 10 Minutes, ONCE, 1 dose, Tue11/08/18 at 0815 11/08/2018 11:10 AM MELT SUPERINTENDANT 150 mg 1007.5 mL/hr etoposide (VEPESID) 150 mg in sodium Given - New chloride 0.9% (NS) 1,007.5 mL IVPB Bag 150 mg (100 mg/m2 1.5 m2 Treatment plan recorded BSA), Intravenous, 1,007.5 mL, Administer over 1 Hours, ONCE, 1 dose, Tue11/08/18 at 0845, NURSING: To be administered by Chemotherapy Competency-validated nurse. NOTE: This is a HIGH ALERT Medication. SPECIAL TUBING REQUIRED , 11/08/2018 12:20 PM MELT SUPERINTENDANT 2,700 mg 152 mL/hr ifosfamide (IFEX) 2,700 mg in sodium Given - New chloride 0.9% (NS) IVPB Bag 2,700 mg (1,800 mg/m2 1.5 m2 Treatment plan recorded BSA), Intravenous, 304 mL, Administer over 2 Hours, ONCE, 1 dose, Tue11/08/18 at 0945, NURSING: To be administered by Chemotherapy Competency-validated nurse. NOTE: This is a HIGH ALERT Medication. SPECIAL TUBING REQUIRED , 11/08/2018 1:10 PM MELT SUPERINTENDANT 1 mg LORazepam (ATIVAN) injection 1 mg Given 1 mg, Intravenous, ONCE, 1 dose, Tue11/08/18 at 1315, PROTECT FROM LIGHT, 11/08/2018 2:30 PM MELT SUPERINTENDANT 1.575 g 53.5 mL/hr mesna (MESNEX) 1.575 g in sodium Given - New chloride 0.9% (NS) 1,015.75 mL IVPB Bag 1.575 g (1.05 g/m2 1.5 m2 Treatment plan recorded BSA), Intravenous, 1,015.75 mL, Administer over 19 Hours, ONCE, 1 dose, Tue11/08/18 at 1015, infuse via CADD PLUS ambulatory pump, 11/08/2018 8:35 AM MELT SUPERINTENDANT 16 mg ondansetron (ZOFRAN) 16 mg in sodium Given - New chloride 0.9% (NS) IVPB Bag 16 mg, Intravenous, 58 mL, Administer over 15 Minutes, ONCE, 1 dose, Tue11/08/18 at 0815 11/08/2018 10:41 AM MELT SUPERINTENDANT 10 mg prochlorperazine (COMPAZINE) injection Given 10 mg 10 mg, Intravenous, ONCE, 1 dose, Tue11/08/18 at 1045, PROTECT FROM LIGHT -- May be given undiluted, or each 5mg may be diluted with 9 mL of NS to facilitate titration., 11/08/2018 8:35 AM MELT SUPERINTENDANT 1,000 mL 500 mL/hr sodium chloride 0.9 % infusion Given - New 1,000 mL, 1,000 mL, Intravenous, at 500 Bag mL/hr, ONCE, 1 dose, Tue11/08/18 at 0830 in this encounter
--- OUTSIDE RECORDS SUMMARY | 2018-12-04 16:10 | XMS REPORT | Encounter Summary ---
Author Author [facility] Organization [facility] Address Unknown Phone Unavailable Care Team Providers Care Java Developer Consultant Name Role Phone Karyn Anderson MD PCP Samuel Kelly DPM 21 Roe Aleman DO Unavailable Reason for Visit * Reason Comments Heme/Onc Care Encounter Details Care Team Description Date Type Department Kimberly Salgado, FEATHEREDGE MACHINE OPERATOR [address] [address] Rodarte's sarcoma (HCC) (Primary Dx) 11/06/2018 Office Visit [facility] - OP Exam [address] [address] Social History Date Tobacco Use [...] Vital Signs Time Taken Vital Sign Reading 11/06/2018 8:49 AM BATTERY PLATE REMOVER Blood Pressure 105/60 11/06/2018 8:49 AM BATTERY PLATE REMOVER Pulse 95 11/06/2018 8:49 AM BATTERY PLATE REMOVER Temperature 36.8 C (98.3 F) 11/06/2018 8:49 AM BATTERY PLATE REMOVER Respiratory Rate 14 11/06/2018 8:49 AM BATTERY PLATE REMOVER Oxygen Saturation 100% - Inhaled Oxygen - Concentration 11/06/2018 8:49 AM BATTERY PLATE REMOVER Weight 54 kg (119 lb) 11/06/2018 8:49 AM BATTERY PLATE REMOVER Height 165.1 cm (5' 5") 11/06/2018 8:49 AM BATTERY PLATE REMOVER Body Mass Index 19.8 in this encounter Functional Status Date of [...] as of this encounter Progress Notes * Kimberly Salgado APRN - 11/06/2018 9:00 AM BATTERY PLATE REMOVER Name: Evelin Mancilla : 1995 AGE: 22 y.o. DATE OF SERVICE: 11/06/2018 Subjective: Reason for Visit: Heme/Onc Care Evelin [...] 02/21/2018, pathology revealing a poorly differentiated neoplasm, [facility] consultation called it a small round blue [...] is very high). She went to an flow machine operator who concurred with the decision [...] significant cytopenias). She is here at Day 1 ofIE. Sheis feeling good and mouth sores have resolved. They did not get a call back about Protonix and I encouraged her mother to send IMScouting messages and not just emails due to overlapping vacations of sarcoma team. She was out of the Protonix over the weekend, but had no symptoms. They would like it filled locally knowing that she will need it this week. No n/v, constipation or diarrhea. No fevers [...] needed for Pain Earliest Fill Date: 04/24/18 prednisone (DELTASONE) 50 mg tablet Take one tablet by mouth daily with breakfast. prochlorperazine maleate (COMPAZINE) 10 mg tablet TAKE 1 TABLET BY MOUTH EVERY 6 HOURS NEEDED FOR NAUSEA OR VOMITING pyridoxine HCl (vitamin B6) (VITAMIN B-6 PO) Take 100 mg by mouth daily. traZODone (DESYREL) 50 mg tablet Take one tablet by mouth at bedtime as needed for Sleep. Vitals: 11/06/18 0849 BP: 105/60 Pulse: 95 Resp: 14 Temp: 36.8 C (98.3 F) TempSrc: Oral SpO2: 100% Weight: 54 kg (119 lb) Height: 165.1 cm (65") Body mass index is 19.8 kg/m. Pain Score: Zero Fatigue Scale: 0-None [...] diff Lab Results Component Value Date/Time WBC 9.8 11/06/2018 08:39 AM RBC 2.52 (L) 11/06/2018 08:39 AM HGB 8.3 (L) 11/06/2018 08:39 AM HCT 24.5 (L) 11/06/2018 08:39 AM MCV 97.1 11/06/2018 08:39 AM MCH 32.9 11/06/2018 08:39 AM MCHC 33.9 11/06/2018 08:39 AM RDW 22.4 (H) 11/06/2018 08:39 AM PLTCT 130 (L) 11/06/2018 08:39 AM MPV 7.8 11/06/2018 08:39 AM Lab Results Component Value Date/Time NEUT 95 (H) 10/16/2018 12:35 PM ANC 6.66 11/06/2018 08:39 AM ANC 4.20 10/16/2018 12:35 PM LYMA 4 (L) 10/16/2018 12:35 PM ALC 0.20 (L) 10/16/2018 12:35 PM JADE 1 (L) 10/16/2018 12:35 PM AMC 0.00 10/16/2018 12:35 PM EOSA 0 10/16/2018 12:35 PM AEC 0.00 10/16/2018 12:35 PM BASA 0 10/16/2018 12:35 PM ABC 0.00 10/16/2018 12:35 PM Assessment and Plan: Problem List Items Addressed This Visit Oncology Rodarte's sarcoma (HCC) - Primary PLAN: CBC reviewed and she was given a copy. She will proceed with treatment today. Protonix refilled and reviewed Acyclovir dosing. Questions and concerns addressed. She is in agreement with plan. 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
--- OUTSIDE RECORDS SUMMARY | 2018-12-04 16:10 | XMS REPORT | Encounter Summary ---
Author Author [facility] Organization [facility] Address Unknown Phone Unavailable Care Team Providers Care Shellfish Processing Machine Tender Name Role Phone Karyn Anderson MD PCP Samuel Kelly DPM 21 Roe Aleman DO Unavailable Encounter Details Care Team Description Date Type Department Mehreen Maharaj 11/06/2018 Documentation [facility] - OP Exam [address] [address] Social History Date Tobacco Use [...] as of this encounter Progress Notes * Mehreen Maharaj - 11/06/2018 11:49 AM RUG RECEIVING CLERK Social Work Note Name: Evelin Torres [facility] #: [id number] PLAN: Provide pt with [facility] financial application. SW to continue to follow and assist as needed. INTERVENTIONS: SW met with pt and mother in treatment and provided pt with the financial portion of her application to [facility] application. SW reviewed this with pt and mother, Ling, and they verbalized understanding. Pt does not have the financial documents with her that are required to complete the application. Pt plans to complete the application when she returns home at the end of this week and e-mail the documents and application to SW to submit. Pt is going to stay at [facility] this week and SW updated pt and Ling about [facility] matching their rate of $59. Pt and Ling appreciated the information and deny any other needs at this time. Mehreen Maharaj, ORQUIDEA *1662 RECEIVING CLERK in this encounter Plan of Treatment Not on fileas of this encounter Visit Diagnoses Not on filein this encounter
--- OUTSIDE RECORDS SUMMARY | 2018-12-04 16:10 | XMS REPORT | Encounter Summary ---
Author Author [facility] Organization [facility] Address Unknown Phone Unavailable Care Team Providers Care Administrative Law Judge Name Role Phone Karyn Anderson MD PCP Samuel Kelly DPM 21 Roe Aleman DO Unavailable Reason for Visit * Reason Comments Heme/Onc Care Chemotherapy * Treatment (Routine) Referred By Contact Referred To Contact Status Reason Specialty Diagnoses / [place] [address] [place] [address] [place] [address] [place] [address] Authorized Hematology Diagnoses Malignant neoplasm of short [...] Description Date Type Department Kimberly Salgado APRN [address] [place] [address] [phone] 11/06/2018 [facility] - OP Treatment [address] [address] Social History Date Tobacco Use Types Packs/Day [...] * Patient Instructions* Marisela Martins RN - 11/06/2018 8:45 AM RESISTOR TESTER Call Immediately to report the following: Uncontrolled nausea and/or vomiting, uncontrolled pain, or unusual bleeding. Temperature of 100.4 F or greater and/or any sign/symptom of infection (redness , warmth, tenderness) Painful mouth or difficulty swallowing Red, cracked, or painful hands and/or feet Diarrhea Swelling of arms or legs Rash Important Phone Numbers: Cancer Center Main Number (answered 24 hours a day) [phone] Cancer Center Scheduling (appointments) [phone] [id number] Cancer Action (for nutritional supplements) [phone] STOR TESTER in this encounter Medications at Time of [...] Progress Notes * Marisela Martins RN - 11/06/2018 8:45 AM RESISTOR TESTER CHEMO NOTE Verified chemo consent signed and in chart. Verified initiate chemo order in O2 Blood return positive via: Rodriguez BSA and dose double checked (agree with orders as written) with: yes Labs/applicable tests checked: CBC and Comprehensive Metabolic Panel (CMP) Chemo regime: Drug/cycle/day Day 1 IE Rate verified and armband double checkwith second RN: yes Patient education offered and stated understanding. Denies questions at this time. Patient here for treatment. Labs drawn. Patient was assessed by Nurse Practitioner in clinic today. Labs within normal limits for treatment. Premeds administered. Mesna infused. Patient c/o nausea and requests additional medication. Compazine ordered and administered. Remainder administered as ordered and tolerated well. Discharged home ambulatory. 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 - Give IV push over 2 minutes., 11/06/2018 9:30 AM RESISTOR TESTER 12 mg 300 mL/hr dexamethasone (DECADRON) 12 mg in sodium Given - New chloride 0.9% (NS) 50 mL IVPB Bag 12 mg, Intravenous, 50 mL, Administer over 10 Minutes, ONCE, 1 dose, Tue11/06/18 at 0915 11/06/2018 11:55 AM RESISTOR TESTER 150 mg 1007.5 mL/hr etoposide (VEPESID) 150 mg in sodium Given - New chloride 0.9% (NS) 1,007.5 mL IVPB Bag 150 mg (100 mg/m2 1.5 m2 Treatment plan recorded BSA), Intravenous, 1,007.5 mL, Administer over 1 Hours, ONCE, 1 dose, Tue11/06/18 at 0945, NURSING: To be administered by Chemotherapy Competency-validated nurse. NOTE: This is a HIGH ALERT Medication. SPECIAL TUBING REQUIRED , 11/06/2018 1:16 PM RESISTOR TESTER 2,700 mg 152 mL/hr ifosfamide (IFEX) 2,700 mg in sodium Given - New chloride 0.9% (NS) IVPB Bag 2,700 mg (1,800 mg/m2 1.5 m2 Treatment plan recorded BSA), Intravenous, 304 mL, Administer over 2 Hours, ONCE, 1 dose, Tue11/06/18 at 1115, NURSING: To be administered by Chemotherapy Competency-validated nurse. NOTE: This is a HIGH ALERT Medication. SPECIAL TUBING REQUIRED , 11/06/2018 10:05 AM RESISTOR TESTER 1,125 mg 255.6 mL/hr mesna (MESNEX) 1,125 mg in sodium Given - New chloride 0.9% (NS) 511.25 mL IVPB Bag 1,125 mg (750 mg/m2 1.5 m2 Treatment plan recorded BSA), Intravenous, 511.25 mL, Administer over 2 Hours, ONCE, 1 dose, Tue11/06/18 at 0915, Pre-Hydration, 11/06/2018 2:29 PM RESISTOR TESTER 1.575 g 53.5 mL/hr mesna (MESNEX) 1.575 g in sodium Given - New chloride 0.9% (NS) 1,015.75 mL IVPB Bag 1.575 g (1.05 g/m2 1.5 m2 Treatment plan recorded BSA), Intravenous, 1,015.75 mL, Administer over 19 Hours, ONCE, 1 dose, Tue11/06/18 at 1115, infuse via CADD PLUS ambulatory pump, 11/06/2018 9:40 AM RESISTOR TESTER 16 mg ondansetron (ZOFRAN) 16 mg in sodium Given - New chloride 0.9% (NS) IVPB Bag 16 mg, Intravenous, 58 mL, Administer over 15 Minutes, ONCE, 1 dose, Tue11/06/18 at 0915 11/06/2018 11:58 AM RESISTOR TESTER 10 mg prochlorperazine (COMPAZINE) injection Given 10 mg 10 mg, Intravenous, ONCE, 1 dose, Tue11/06/18 at 1200, PROTECT FROM LIGHT -- May be given undiluted, or each 5mg may be diluted with 9 mL of NS to facilitate titration., in this encounter
--- OUTSIDE RECORDS SUMMARY | 2018-12-04 16:10 | XMS REPORT | Encounter Summary ---
Author Author [facility] Organization [facility] Address Unknown Phone Unavailable Care Team Providers Care Risk Analyst Name Role Phone Karyn Anderson MD PCP Samuel Kelly DPM 21 Roe Aleman DO Unavailable Reason for Visit * Reason Comments Treatment Heme/Onc Care * Treatment (Routine) Referred By Contact Referred To Contact Status Reason Specialty Diagnoses / [place] [address] [place] [phone] [place] [address] [place] [address] Authorized Hematology Diagnoses Malignant neoplasm of short [...] Description Date Type Department Kimberly Salgado APRN [address] [place] [address] [phone] 11/07/2018 [facility] - OP Treatment [address] [address] Social History Date Tobacco Use Types Packs/Day [...] Vital Signs Time Taken Vital Sign Reading 11/07/2018 12:50 PM PLODDING MACHINE OPERATOR Blood Pressure 105/61 11/07/2018 12:50 PM PLODDING MACHINE OPERATOR Pulse 110 11/07/2018 12:50 PM PLODDING MACHINE OPERATOR Temperature 36.6 C (97.9 F) 11/07/2018 12:50 PM PLODDING MACHINE OPERATOR Respiratory Rate 20 11/07/2018 12:50 PM PLODDING MACHINE OPERATOR Oxygen Saturation 100% - Inhaled Oxygen - Concentration 11/07/2018 8:00 AM PLODDING MACHINE OPERATOR Weight 54.9 kg (121 lb) 11/07/2018 8:00 AM PLODDING MACHINE OPERATOR Height 165.1 cm (5' 5") 11/07/2018 8:00 AM PLODDING MACHINE OPERATOR Body Mass Index 20.14 in this encounter [...] * Patient Instructions* Marisela Martins RN - 11/07/2018 4:45 PM PLODDING MACHINE OPERATOR Call Immediately to report the following: Uncontrolled nausea and/or vomiting, uncontrolled pain, or unusual bleeding. Temperature of 100.4 F or greater and/or any sign/symptom of infection (redness , warmth, tenderness) Painful mouth or difficulty swallowing Red, cracked, or painful hands and/or feet Diarrhea Swelling of arms or legs Rash Important Phone Numbers: [facility] Cancer [facility] Main Number (answered 24 hours a day) [phone] Cancer Center Scheduling (appointments) [phone] [id number] [facility] (for nutritional supplements) [phone] DING MACHINE OPERATOR in this encounter Medications at Time of Discharge Start Date End Date Medication Sig Dispensed Refills acetaminophen (TYLENOL) Take 325 mg 0 325 mg tablet by mouth every 4 hours as needed for Pain. 08/14/2018 acyclovir (ZOVIRAX) 800 Take one 90 tablet 3 mg tabletIndications: tablet by Rodarte's sarcoma ([facility]) mouth every 8 hours. 07/15/2018 doxycycline (VIBRAMYCIN) [...] tabletIndications: BY MOUTH AT Rodarte's sarcoma ([facility]) BEDTIME DAILY. ON DAYS 1-4 OF EACH [...] of this encounter Progress Notes * Marisela Martins, RN - 11/07/2018 4:40 PM PLODDING MACHINE OPERATOR CHEMO NOTE Verified chemo consent signed and in chart. Verified initiate chemo order in O2 Blood return positive via: Rodriguez BSA and dose double checked (agree with orders as written) with: yes Labs/applicable tests checked: None Chemo regime: Drug/cycle/day Day IE Rate verified and armband double checkwith second RN: yes Patient education offered and stated understanding. Denies questions at this time. Patient here for treatment day 2. Only complaint is that of extreme fatigue. Premeds administered. Mesna continues. Treatment administered as ordered and tolerated with some c/o nausea. Additional medication ordered for nausea. ( Compazine ) Received relief from nausea. Treatment completed and patient requests additional medication for nausea. Ativan IV ordered and administered prior to dismissal. VS stable. Dismissed with Mesna infusing via ambulatory infusion pump to run over 19 hours. 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 Administered Medications Action Date Dose Rate Site Medication Order MAR Action 11/07/2018 8:24 AM PLODDING MACHINE OPERATOR 8 mg 300 mL/hr dexamethasone (DECADRON) 8 mg in sodium Given - New chloride 0.9% (NS) 50 mL IVPB Bag 8 mg, Intravenous, 50 mL, Administer over 10 Minutes, ONCE, 1 dose, 11/07/18 at 0815 11/07/2018 9:35 AM PLODDING MACHINE OPERATOR 150 mg 1007.5 mL/hr etoposide (VEPESID) 150 mg in sodium Given - New chloride 0.9% (NS) 1,007.5 mL IVPB Bag 150 mg (100 mg/m2 1.5 m2 Treatment plan recorded BSA), Intravenous, 1,007.5 mL, Administer over 1 Hours, ONCE, 1 dose, 11/07/18 at 0845, NURSING: To be administered by Chemotherapy Competency-validated nurse. NOTE: This is a HIGH ALERT Medication. SPECIAL TUBING REQUIRED , 11/07/2018 10:40 AM PLODDING MACHINE OPERATOR 2,700 mg 152 mL/hr ifosfamide (IFEX) 2,700 mg in sodium Given - New chloride 0.9% (NS) IVPB Bag 2,700 mg (1,800 mg/m2 1.5 m2 Treatment plan recorded BSA), Intravenous, 304 mL, Administer over 2 Hours, ONCE, 1 dose, 11/07/18 at 0945, NURSING: To be administered by Chemotherapy Competency-validated nurse. NOTE: This is a HIGH ALERT Medication. SPECIAL TUBING REQUIRED , 11/07/2018 12:48 PM PLODDING MACHINE OPERATOR 1 mg LORazepam (ATIVAN) injection 1 mg Given 1 mg, Intravenous, ONCE, 1 dose, Tue11/07/18 at 1245, PROTECT FROM LIGHT, 11/07/2018 12:49 PM PLODDING MACHINE OPERATOR 1.575 g 53.5 mL/hr mesna (MESNEX) 1.575 g in sodium Given - New chloride 0.9% (NS) 1,015.75 mL IVPB Bag 1.575 g (1.05 g/m2 1.5 m2 Treatment plan recorded BSA), Intravenous, 1,015.75 mL, Administer over 19 Hours, ONCE, 1 dose, Tue11/07/18 at 1015, infuse via CADD PLUS ambulatory pump, 11/07/2018 8:34 AM PLODDING MACHINE OPERATOR 16 mg ondansetron (ZOFRAN) 16 mg in sodium Given - New chloride 0.9% (NS) IVPB Bag 16 mg, Intravenous, 58 mL, Administer over 15 Minutes, ONCE, 1 dose, Tue11/07/18 at 0815 11/07/2018 11:53 AM PLODDING MACHINE OPERATOR 10 mg prochlorperazine (COMPAZINE) injection Given 10 mg 10 mg, Intravenous, EVERY 6 HOURS PRN, Starting 11/07/18 at 1137, Until 11/12/18 at 0208, Nausea/Vomiting Injectable, PROTECT FROM LIGHT -- May be given undiluted, or each 5mg may be diluted with 9 mL of NS to facilitate titration., in this encounter
--- OUTSIDE RECORDS SUMMARY | 2018-12-04 16:11 | XMS REPORT | Encounter Summary ---
Author Author [facility] Organization [facility] Address Unknown Phone Unavailable Care Team Providers Care Pig Machine Crane Operator Name Role Phone Karyn Anderson MD PCP Samuel Kelly DPM 21 Roe Aleman DO Unavailable Reason for Visit * Reason Comments Heme/Onc Care Encounter Details Care Team Description Date [place] [address] [address] 10/30/2018 [facility] - OP Treatment [address] [address] Social History Date Tobacco Use [...] Status Date of Assessment Functional Status Response 10/25/2018 Does the patient have a hearing impairment: No 10/25/2018 Does the patient have a visual impairment: Yes 10/25/2018 Does the patient have impaired ambulation: No 10/25/2018 Does the patient have an activity of daily living No (ADL) impairment: 10/25/2018 Does the patient have an instrumental activity of No daily living (IADL) impairment: Date of Assessment Cognitive Status Response 10/25/2018 Does the patient have a cognitive impairment: No as of this encounter Discharge Instructions * Patient Instructions* Marisela Martins RN - 10/30/2018 8:22 AM EVENTS SOLUTIONS CONSULTANT Call Immediately to report the following: Uncontrolled nausea and/or vomiting, uncontrolled pain, or unusual bleeding. Temperature of 100.4 F or greater and/or any sign/symptom of infection (redness , warmth, tenderness) Painful mouth or difficulty swallowing Red, cracked, or painful hands and/or feet Diarrhea Swelling of arms or legs Rash Important Phone Numbers: OP Cancer Center Main Number (answered 24 hours a day) [phone] Cancer Center Scheduling (appointments) [phone] [id number] [facility] (for nutritional supplements) [phone] TS SOLUTIONS CONSULTANT in this encounter Medications at Time of [...] needed for Pain Earliest Fill Date: 04/24/18 10/18/2018 prednisone (DELTASONE) 50 Take one 5 [...] Progress Notes * Marisela Martins RN - 10/30/2018 8:22 AM EVENTS SOLUTIONS CONSULTANT Patient here for lab and Rodriguez dressing change. Patient was assessed by Nurse Practitioner in clinic today. Dressing changed per protocol. Discharged home ambulatory. TS SOLUTIONS CONSULTANT in this encounter Plan of Treatment Not on fileas of this encounter Visit Diagnoses Not on filein this encounter
--- OUTSIDE RECORDS SUMMARY | 2018-12-04 16:11 | XMS REPORT | Encounter Summary ---
Author Author [facility] Organization [facility] Address Unknown Phone Unavailable Care Team Providers Care Director Human Services Name Role Phone Karyn Anderson MD PCP Samuel Kelly DPM 21 Roe Aleman DO Unavailable Reason for Visit * Reason Comments Cancer Treatment * Treatment (Routine) Referred By Contact Referred To Contact Status Reason Specialty Diagnoses / [place] [address] [place] [address] [place] [address] [address] Authorized Hematology Diagnoses Malignant neoplasm of short [...] Description Date [place] [address] [address] [phone] 10/26/2018 [facility] Cancer Center - OP Treatment [address] [address] Social History Date Tobacco Use [...] Vital Signs Time Taken Vital Sign Reading 10/26/2018 9:02 AM AMMUNITION COMPONENTS INSPECTOR Blood Pressure 106/63 10/26/2018 9:02 AM AMMUNITION COMPONENTS INSPECTOR Pulse 100 10/26/2018 9:02 AM AMMUNITION COMPONENTS INSPECTOR Temperature 36.6 C (97.9 F) 10/26/2018 9:02 AM AMMUNITION COMPONENTS INSPECTOR Respiratory Rate 16 10/26/2018 9:02 AM AMMUNITION COMPONENTS INSPECTOR Oxygen Saturation 98% - Inhaled Oxygen - Concentration 10/26/2018 9:02 AM AMMUNITION COMPONENTS INSPECTOR Weight 53.3 kg (117 lb 9.6 oz) 10/26/2018 9:02 AM AMMUNITION COMPONENTS INSPECTOR Height 165.1 cm (5' 5") 10/26/2018 9:02 AM AMMUNITION COMPONENTS INSPECTOR Body Mass Index 19.57 in this encounter Functional Status Date of [...] this encounter Discharge Instructions * Patient Instructions* Elvira Medina RN - 10/26/2018 10:53 AM AMMUNITION COMPONENTS INSPECTOR Call Immediately to report the following: Uncontrolled nausea and/or vomiting, uncontrolled pain, or unusual bleeding. Temperature of 100.4 F or greater and/or any sign/symptom of infection (redness , warmth, tenderness) Painful mouth or difficulty swallowing Red, cracked, or painful hands and/or feet Diarrhea Swelling of arms or legs Rash Important Phone Numbers: OP Cancer Center Main Number (answered 24 hours a day) [phone] Cancer Center Scheduling (appointments) [phone] [facility] (for nutritional supplements) [phone] Port Maintenance - If you have a port, it should be flushed every 6-8 weeks when not in use. Please check with your MD, nurse, or the magnetic tape composer operator. NITION COMPONENTS INSPECTOR in this encounter Medications at Time of [...] tablet 5 mg tabletIndications: BY MOUTH AT Rodaret's sarcoma (HCC) BEDTIME DAILY. ON DAYS 1-4 [...] as of this encounter Progress Notes * Elvira Medina, RN - 10/26/2018 10:49 AM AMMUNITION COMPONENTS INSPECTOR Day 2 VAC Patient c/o nausea and malaise. Denies constipation. 10mg IV Compazine given with 1L NS. 1mg IV Ativan at discharge since patient has long car ride. Discharged in stable condition to mother by wheelchair. 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, 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 Administered Medications Action Date Dose Rate Site Medication Order MAR Action 10/26/2018 10:43 AM AMMUNITION COMPONENTS INSPECTOR 1 mg LORazepam (ATIVAN) injection 0.5-1 mg Given 0.5-1 mg, Intravenous, ONCE, 1 dose, Luly 10/26/18 at 1045, PROTECT FROM LIGHT, 10/26/2018 10:43 AM AMMUNITION COMPONENTS INSPECTOR 6 mg Abdominal Tissue pegfilgrastim (NEULASTA) syringe 6 mg Given 6 mg, Subcutaneous, ONCE, 1 dose, Luly 10/26/18 at 0915, -- Not for IV Push administration --, 10/26/2018 9:10 AM AMMUNITION COMPONENTS INSPECTOR 10 mg prochlorperazine (COMPAZINE) injection 5 Given mg 5 mg, Intravenous, ONCE, 1 dose, Luly 10/26/18 at 0915, PROTECT FROM LIGHT -- May be given undiluted, or each 5mg may be diluted with 9 mL of NS to facilitate titration., 10/26/2018 9:10 AM AMMUNITION COMPONENTS INSPECTOR 1,000 mL 800 mL/hr sodium chloride 0.9 % infusion Given - New 1,000 mL, 1,000 mL, Intravenous, at 800 Bag mL/hr, ONCE, 1 dose, Luly 10/26/18 at 0915 in this encounter
--- OUTSIDE RECORDS SUMMARY | 2018-12-04 16:11 | XMS REPORT | Encounter Summary ---
Author Author [facility] Organization [facility] Address Unknown Phone Unavailable Care Team Providers Care Life Tester [employer] Name Role Phone Karyn Anderson MD PCP Samuel Kelly DPM 21 Roe Aleman DO Unavailable Encounter Details Care Team Description Date Type Department Kimberly Salgado APRN [address] [address] 10/30/2018 [facility] - OP Lab [address] [address] Social History Date Tobacco Use [...] mg tabletIndications: BY MOUTH AT Rodarte's sarcoma ([facility]) BEDTIME DAILY. ON DAYS 1-4 OF EACH [...] tablet 5 tabletIndications: tablet by Rodarte's sarcoma ([facility]) mouth every 8 hours as needed (nausea and vomiting). 10/23/2018 11/21/2018 prochlorperazine maleate TAKE 1 TABLET 30 tablet 0 (COMPAZINE) 10 mg tablet BY MOUTH EVERY 6 HOURS NEEDED FOR NAUSEA OR VOMITING as of this encounter Plan of Treatment Not on fileas of this encounter Procedures Comments Procedure Name Priority Date/Time Associated Diagnosis CBC AND DIFF Routine 10/30/2018 Rodarte's sarcoma (HCC) 8:17 AM BIOLOGY TUTOR COMPREHENSIVE METABOLIC Routine 10/30/2018 Rodarte's sarcoma (HCC) PANEL 8:17 AM BIOLOGY TUTOR in this encounter Results * COMPREHENSIVE METABOLIC PANEL (10/30/2018 8:17 AM BIOLOGY TUTOR) Sodium 137 137 - 147 MMOL/L [facility] Potassium 3.8 3.5 - 5.1 MMOL/L [facility] Chloride 103 98 - 110 MMOL/L [facility] Glucose 110 (H) 70 - 100 MG/DL [facility] Blood Urea Nitrogen 13 7 - 25 MG/DL [facility] Creatinine 0.46 0.4 - 1.00 MG/DL [facility] Calcium 9.2 8.5 - 10.6 MG/DL [facility] Total Protein 6.0 6.0 - 8.0 G/DL [facility] Total Bilirubin 0.3 0.3 - 1.2 MG/DL [facility] Albumin 4.3 3.5 - 5.0 G/DL [facility] Alk Phosphatase 107 25 - 110 U/L [facility] AST (SGOT) 22 7 - 40 U/L [facility] CO2 31 (H) 21 - 30 MMOL/L [facility] ALT (SGPT) 28 7 - 56 U/L [facility] Anion Gap 3 3 - 12 [facility] eGFR [...] Number [facility] [address] [place] [address] * CBC AND DIFF (10/30/2018 8:17 AM BIOLOGY TUTOR) White Blood Cells 3.6 (L) 4.5 - 11.0 K/UL [facility] RBC 2.81 (L) 4.0 - 5.0 M/UL [facility] Hemoglobin 9.2 (L) 12.0 - 15.0 GM/DL [facility] Hematocrit 27.0 (L) 36 - 45 % [facility] MCV 95.9 80 - 100 FL [facility] MCH 32.9 26 - 34 PG [facility] MCHC 34.3 32.0 - 36.0 G/DL [facility] RDW 20.9 (H) 11 - 15 % [facility] Platelet Count 50 (L) 150 - 400 K/UL [facility] MPV 7.4 7 - 11 FL [facility] Segmented Neutrophils 90 (H) 41 - 77 % [facility] Bands 3 0 - 10 % [facility] Lymphocytes 5 (L) 24 - 44 % [facility] Monocytes 2 (L) 4 - 12 % [facility] ANISO PRESENT [facility] Dohle Bodies PRESENT [facility] Hypersegmented PRESENT [facility] Platelet Estimate MKD DEC [facility] Absolute Neutrophil Count 3.35 1.8 - 7.0 K/UL [facility] Specimen Blood Performing Organization Address City/State/Zipcode Phone Number [facility] [address] [address] in this encounter Visit Diagnoses 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
--- OUTSIDE RECORDS SUMMARY | 2018-12-04 16:11 | XMS REPORT | Encounter Summary ---
Author Author [facility] Organization [facility] Address Unknown Phone Unavailable Care Team Providers Care Transplant Worker Name Role Phone Karyn Anderson MD PCP Samuel Kelly DPM 21 Roe Aleman DO Unavailable Encounter Details Care Team Description Date Type Department Kimberly Salgado APRN [address] [address] 11/06/2018 [facility] - OP Lab [address] [address] Social History Date Tobacco Use [...] g 1 40%(#)Indications: liberally to Rodarte's sarcoma ([facility]) perianal area as needed loratadine (CLARITIN) [...] tablet 5 tabletIndications: tablet by Rodarte's sarcoma ([facility]) mouth every 8 hours as needed (nausea and vomiting). 10/23/2018 11/21/2018 prochlorperazine maleate TAKE 1 TABLET 30 tablet 0 (COMPAZINE) 10 mg tablet BY MOUTH EVERY 6 HOURS NEEDED FOR NAUSEA OR VOMITING as of this encounter Plan of Treatment Not on fileas of this encounter Procedures Comments Procedure Name Priority Date/Time Associated Diagnosis CBC AND DIFF Routine 11/06/2018 Rodarte's sarcoma (HCC) 8:39 AM SET UP MECHANIC COMPREHENSIVE METABOLIC Routine 11/06/2018 Rodarte's sarcoma (HCC) PANEL 8:39 AM SET UP MECHANIC in this encounter Results * COMPREHENSIVE METABOLIC PANEL (11/06/2018 8:39 AM SET UP MECHANIC) Sodium 141 137 - 147 MMOL/L [facility] Potassium 3.8 3.5 - 5.1 MMOL/L [facility] Chloride 106 98 - 110 MMOL/L [facility] Glucose 112 (H) 70 - 100 MG/DL [facility] Blood Urea Nitrogen 5 (L) 7 - 25 MG/DL [facility] Creatinine 0.55 0.4 - 1.00 MG/DL [facility] Calcium 9.2 8.5 - 10.6 MG/DL [facility] Total Protein 6.2 6.0 - 8.0 G/DL [facility] Total Bilirubin 0.3 0.3 - 1.2 MG/DL [facility] Albumin 4.3 3.5 - 5.0 G/DL [facility] Alk Phosphatase 87 25 - 110 U/L [facility] AST (SGOT) 38 7 - 40 U/L [facility] CO2 29 21 - 30 MMOL/L [facility] ALT (SGPT) 55 7 - 56 U/L [facility] Anion Gap 6 3 - 12 [facility] eGFR [...] Address City/State/Zipcode Phone Number [facility] [address] [facility] [place] [address] * CBC AND DIFF (11/06/2018 8:39 AM SET UP MECHANIC) White Blood Cells 9.8 4.5 - 11.0 K/UL [facility] RBC 2.52 (L) 4.0 - 5.0 M/UL [facility] Hemoglobin 8.3 (L) 12.0 - 15.0 GM/DL [facility] Hematocrit 24.5 (L) 36 - 45 % [facility] MCV 97.1 80 - 100 FL [facility] [place] MCH 32.9 26 - 34 PG [facility] [place] MCHC 33.9 32.0 - 36.0 G/DL [facility] RDW 22.4 (H) 11 - 15 % [facility] Platelet Count 130 (L) 150 - 400 K/UL [facility] MPV 7.8 7 - 11 FL [facility] Segmented Neutrophils 58 41 - 77 % [facility] Bands 10 0 - 10 % [facility] Lymphocytes 8 (L) 24 - 44 % [facility] Monocytes 18 (H) 4 - 12 % [facility] [place] Metamyelocyte 2 % [facility] [place] Myelocyte 4 % [facility] HYPO PRESENT [facility] [place] Teardrop PRESENT [facility] [place] Platelet Estimate SLT DEC [facility] Absolute Neutrophil Count 6.66 1.8 - 7.0 K/UL [facility] Specimen Blood Performing Organization Address City/State/Zipcode Phone Number [facility] [address] [address] in this encounter Visit Diagnoses 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
--- OUTSIDE RECORDS SUMMARY | 2018-12-04 16:11 | XMS REPORT | Encounter Summary ---
Author Author [facility] Organization [facility] Address Unknown Phone Unavailable Care Team Providers Care Rn Clinical Documentation Name Role Phone Karyn Anderson MD PCP Samuel Kelly DPM 21 Roe Aleman DO Unavailable Reason for Visit * Reason Comments Cancer Encounter Details Care Team Description Date Type Department Naomi, Kimberly, SIGNS AND DISPLAYS SALES REPRESENTATIVE [address] [address] Rodarte's sarcoma (HCC) (Primary Dx) 10/30/2018 Office Visit [facility] - OP Exam [address] [address] Social History Date Tobacco Use [...] Vital Signs Time Taken Vital Sign Reading 10/30/2018 8:[address] CAR MECHANIC Blood Pressure 105/62 10/30/2018 8:[address] CAR MECHANIC Pulse 97 10/30/2018 8:[address] CAR MECHANIC Temperature 36.6 C (97.9 F) 10/30/2018 8:[address] CAR MECHANIC Respiratory Rate 14 10/30/2018 8:[address] CAR MECHANIC Oxygen Saturation 100% - Inhaled Oxygen - Concentration 10/30/2018 8:[address] CAR MECHANIC Weight 54.3 kg (119 lb 9.6 oz) 10/30/2018 8:[address] CAR MECHANIC Height 165.1 cm (5' 5") 10/30/2018 8:[address] CAR MECHANIC Body Mass Index 19.9 in this encounter Functional Status Date of [...] as of this encounter Progress Notes * [place] - 10/30/2018 8:[address] CAR MECHANIC Date of Service: 10/30/2018 Subjective: Reason for Visit: Cancer Evelin Mancilla [...] 02/21/2018, pathology revealing a poorly differentiated neoplasm, [facility] consultation called it a small round [...] is very high). She went to an skull chopper who concurred with the decision to proceed with the surgical resection and chemotherapy for the goal of attacking the disease lianna. She is not very church, and was okay with aborting the , [...] but cytopenias have limited that. Admitted to [facility] after 5th cycle, 3rd VAC, due to [...] cytopenias). She is here at Day 8 of VAC. She is feeling good and had a good weekend. No n/v , constipation or diarrhea. No fevers or infectious [...] at bedtime as needed for Sleep. Vitals: 10/30/18 0821 BP: 105/62 Pulse: 97 Resp: 14 Temp: 36.6 C (97.9 F) TempSrc: Oral SpO2: 100% Weight: 54.3 kg (119 lb 9.6 oz) Height: 165.1 cm (65") Body mass index is 19.9 kg/m. Pain Score: Zero Pain Addressed: N/A Patient Evaluated for a [...] is normal. Nursing note and vitals reviewed. Results for orders placed or performed during the hospital encounter of (from the past 336 hour(s)) CBC AND DIFF Result Value Ref Range White Blood Cells 3.6 (L) 4.5 - 11.0 K/UL RBC 2.81 (L) 4.0 - 5.0 M/UL Hemoglobin 9.2 (L) 12.0 - 15.0 GM/DL Hematocrit 27.0 (L) 36 - 45 % MCV 95.9 80 - 100 FL MCH 32.9 26 - 34 PG MCHC 34.3 32.0 - 36.0 G/DL RDW 20.9 (H) 11 - 15 % Platelet Count 50 (L) 150 - 400 K/UL MPV 7.4 7 - 11 FL Segmented Neutrophils 90 (H) 41 - 77 % Bands 3 0 - 10 % Lymphocytes 5 (L) 24 - 44 % Monocytes 2 (L) 4 - 12 % ANISO PRESENT Dohle Bodies PRESENT Hypersegmented Neutrophils PRESENT Platelet Estimate MKD DEC Absolute Neutrophil Count Manual 3.35 1.8 - 7.0 K/UL Assessment and Plan: Problem List Items Addressed This Visit Oncology Rodarte's sarcoma (HCC) - Primary PLAN: CBC reviewed and she was given a copy. She will return in 1 week for next cycle of treatment. Questions and concerns addressed. She is in agreement with plan. 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
--- OUTSIDE RECORDS SUMMARY | 2018-12-04 16:11 | XMS REPORT | Encounter Summary ---
Author Author [facility] Organization [facility] Address Unknown Phone Unavailable Care Team Providers Care Emergency Room Nurse Name Role Phone Karyn Anderson MD PCP Samuel Kelly DPM 21 Roe Aleman DO Unavailable Reason for Visit * Reason Comments Medication Refill Encounter Details Care Team Description [place] [address] [address] Rodarte's sarcoma (HCC) 10/25/2018 Refill [facility] - OP Exam [address] [address] Social History Date Tobacco Use [...]
--- OUTSIDE RECORDS SUMMARY | 2018-12-04 16:11 | XMS REPORT | Encounter Summary ---
Author Author [facility] Organization [facility] Address Unknown Phone Unavailable Care Team Providers Care Nuclear Monitoring Technician Name Role Phone Karyn Anderson MD PCP Samuel Kelly DPM 21 Roe Aleman DO Unavailable Encounter Details Care Team Description Date Type Department Mehreen Maharaj 11/03/2018 Documentation [facility] - OP Exam [address] [address] Social History Date Tobacco Use [...] encounter Progress Notes * Mehreen Maharaj - 11/03/2018 11:03 AM PREHEMMER Social Work Note Name: Evelin Torres [facility] #: [id number] PLAN: Inform pt of required documentation to complete [employer] application. INTERVENTIONS: SW received an e-mail from [employer] stating pt needs to complete page 3 of the application and submit any receipts she may have that are applicable. SW contacted pt and informed her of the above. Pt states she will gather her receipts and bring them next week to clinic. SW to assist pt in completing the above requested information and submit on pt's behalf. Pt denies any other needs at this time. Mehreen Maharaj LMSW *[id number] EMMER in this encounter Plan of Treatment Not on fileas of this encounter Visit Diagnoses Not on filein this encounter
--- OUTSIDE RECORDS SUMMARY | 2018-12-04 16:12 | XMS REPORT | Encounter Summary ---
Author Author [facility] Organization [facility] Address Unknown Phone Unavailable Care Team Providers Care Retail Property Manager Name Role Phone Karyn Anderson MD PCP Samuel Kelly DPM 21 Roe Aleman DO Unavailable Encounter Details Care Team Description Date Type Department Jessie Coyne MA 10/25/2018 Clinical [facility] [address] [id number] Social History Date Tobacco Use Types Packs/Day [...] as of this encounter Progress Notes * Jessie Coyne MA - 10/25/2018 9:00 AM STRUCTURAL TEST ENGINEER [facility]IDENTIAL HEALTH AND BEHAVIOR ASSESSMENT AND INTERVENTION PATIENT NAME: Evelin Mancilla : 1995 Date of Service: 10/25/2018 Time of Service: 8:50 - 9:00 AM Location of Service: 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 Patient is currently on cycle 11 of chemotherapy. The patient was seen by this provider for Health and Behavior Assessment and Intervention as part of their medical care with their healthcare provider, Dr. Adams, and their medical team. Patient's mom attended appointment per patient permission. Review of Problem and Assessment: This assessment focused on the biological, psychological, and social factors affecting the physical health and treatment plan of the patient. Patient denied symptoms of depression and suicidal ideation. Patient reported worry and feeling restless/on edge. Strategies to manage anxiety were briefly discussed. Patient reported previously difficulty falling asleep, but patient denied present sleep difficulty. Patient reported good social support. Patient reported her coping/self-care strategies include: horseback riding and staying busy. Coping strategies were reinforced. Interventions implemented include: emotional support, rapport building, strategies to manage anxiety (e.g., diaphragmatic breathing), and reinforcement of coping strategies. Provider also introduced Onco-Psychology services available. MSE: Patient was alert, appropriately groomed in casual attire, Ox4, speech WNL , thoughts were lucid, and memory appeared grossly intact. Patient made appropriate eye contact. Mood was reported to be anxious, affect was congruent. Patient denied SI. No evidence of HI or delusions. Patient was cooperative and engaged. Plan of Care and Rationale: Patient was informed of Onco-Psychology services available and was provided with contact information if patient and/or their family would like to utilize services. Medical Diagnosis: Rodarte's Sarcoma Jessie Coyne M.A. Advanced Practicum Trainee Onco-Psychology Program Note: Services and documentation were provided under the supervision of a licensed psychologist. CTURAL TEST ENGINEER in this encounter Plan of Treatment Not on fileas of this encounter Visit Diagnoses Not on filein this encounter
--- OUTSIDE RECORDS SUMMARY | 2018-12-04 16:12 | XMS REPORT | Encounter Summary ---
Author Author [facility] Organization [facility] Address Unknown Phone Unavailable Care Team Providers Care Perinatal Specialist Name Role Phone Karyn Anderson MD PCP Samuel Kelly DPM 21 Roe Aleman DO Unavailable Encounter Details Care Team Description Date [place] [address] [address] 10/24/2018 [facility] - OP Lab [address] [address] Social History Date Tobacco Use [...] Status Date of Assessment Functional Status Response 10/12/2018 Does the patient have a hearing impairment: No 10/12/2018 Does the patient have a visual impairment: Yes 10/12/2018 Does the patient have impaired ambulation: Yes 10/12/2018 Does the patient have an activity of daily living No (ADL) impairment: 10/12/2018 Does the patient have an instrumental activity of No daily living (IADL) impairment: Date of Assessment Cognitive Status Response 10/12/2018 Does the patient have a cognitive impairment: [...] as needed for Nausea (anxiety and insomnia). other medication 1 Dose at 0 bedtime [...] 500 mg tablet tablet by mouth daily. 10/02/2018 10/25/2018 OLANZapine (ZYPREXA) 10 TAKE 1 TABLET 12 tablet 0 mg tabletIndications: BY MOUTH AT Rodarte's sarcoma (HCC) BEDTIME DAILY. ON DAYS 1-4 OF EACH CYCLE 05/03/2018 11/28/2018 ondansetron (ZOFRAN) 8 mg Take [...] Date/Time Associated Diagnosis CBC AND DIFF Routine 10/24/2018 Rodarte's sarcoma (HCC) 7:56 AM FURNACE BUILDER COMPREHENSIVE METABOLIC Routine 10/24/2018 Rodarte's sarcoma (HCC) PANEL 7:56 AM FURNACE BUILDER in this encounter Results * COMPREHENSIVE METABOLIC PANEL (10/24/2018 7:56 AM FURNACE BUILDER) Sodium 140 137 - 147 MMOL/L [facility] Potassium 3.9 3.5 - 5.1 MMOL/L [facility] Chloride 102 98 - 110 MMOL/L [facility] Glucose 90 70 - 100 MG/DL [facility] Blood Urea Nitrogen 14 7 - 25 MG/DL [facility] Creatinine 0.56 0.4 - 1.00 MG/DL [facility] Calcium 9.5 8.5 - 10.6 MG/DL [facility] Total Protein 6.3 6.0 - 8.0 G/DL [facility] Total Bilirubin <0.1 (L) 0.3 - 1.2 MG/DL [facility] Albumin 4.4 3.5 - 5.0 G/DL [facility] Alk Phosphatase 127 (H) 25 - 110 U/L [facility] AST (SGOT) 63 (H) 7 - 40 U/L [facility] CO2 31 (H) 21 - 30 MMOL/L [facility] ALT (SGPT) 60 (H) 7 - 56 U/L [facility] [...] Address City/State/Zipcode Phone Number [facility] [address] [place] [address] * CBC AND DIFF (10/24/2018 7:56 AM FURNACE BUILDER) White Blood Cells 36.0 (H) 4.5 - 11.0 K/UL [facility] RBC 3.15 (L) 4.0 - 5.0 M/UL [facility] Hemoglobin 10.0 (L) 12.0 - 15.0 GM/DL [facility] Hematocrit 30.3 (L) 36 - 45 % [facility] MCV 96.2 80 - 100 FL [facility] MCH 31.7 26 - 34 PG [facility] MCHC 32.9 32.0 - 36.0 G/DL [facility] RDW 19.4 (H) 11 - 15 % [facility] Platelet Count 102 (L) 150 - 400 K/UL [facility] MPV 7.8 7 - 11 FL [facility] Segmented Neutrophils 61 41 - 77 % [facility] Bands 26 (H) 0 - 10 % [facility] Lymphocytes 3 (L) 24 - 44 % [facility] [place] Monocytes 3 (L) 4 - 12 % [facility] Metamyelocyte 2 % [facility] [place] Myelocyte 5 % [facility] ANISO PRESENT [facility] [place] HYPO PRESENT [facility] [place] POLY PRESENT [facility] [place] Teardrop PRESENT [facility] Platelet Estimate SLT DEC [facility] Absolute Neutrophil Count 31.32 (H) 1.8 - 7.0 K/UL [facility] Specimen Blood Performing Organization Address City/State/Zipcode Phone Number [facility] [address] [place] [address] in this encounter Visit Diagnoses 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
--- OUTSIDE RECORDS SUMMARY | 2018-12-04 16:12 | XMS REPORT | Encounter Summary ---
Author Author [facility] Organization [facility] Address Unknown Phone Unavailable Care Team Providers Care Atlassian Administrator Name Role Phone Karyn Anderson MD PCP Samuel Kelly DPM 21 Roe Aleman DO Unavailable Reason for Visit * Reason Comments Cancer Encounter Details Care Team Description Date [place] [address] [address] Rodarte's sarcoma (HCC) (Primary Dx) 10/25/2018 Office Visit [facility] - OP Exam [address] [address] Social History Date Tobacco Use [...] Vital Signs Time Taken Vital Sign Reading 10/25/2018 8:02 AM LIQUEFIED PETROLEUM GASFITTER Blood Pressure 108/65 10/25/2018 8:02 AM LIQUEFIED PETROLEUM GASFITTER Pulse 106 10/25/2018 8:02 AM LIQUEFIED PETROLEUM GASFITTER Temperature 36.6 C (97.8 F) 10/25/2018 8:02 AM LIQUEFIED PETROLEUM GASFITTER Respiratory Rate 14 10/25/2018 8:02 AM LIQUEFIED PETROLEUM GASFITTER Oxygen Saturation 100% - Inhaled Oxygen - Concentration 10/25/2018 8:02 AM LIQUEFIED PETROLEUM GASFITTER Weight 53.6 kg (118 lb 3.2 oz) 10/25/2018 8:02 AM LIQUEFIED PETROLEUM GASFITTER Height 165.1 cm (5' 5") 10/25/2018 8:02 AM LIQUEFIED PETROLEUM GASFITTER Body Mass Index 19.67 in this encounter Functional Status Date of [...] Progress Notes * Isreal Adams MD - 10/25/2018 8:20 AM LIQUEFIED PETROLEUM GASFITTER Name: Evelin Mancilla : 1995 AGE: 22 y.o. DATE OF SERVICE: 10/25/2018 Subjective: Reason for Visit: Cancer Evelin Mancilla [...] pathology revealing a poorly differentiated neoplasm, [facility] consultation called it a small round blue [...] is very high). She went to an particle board supervisor who concurred with the decision to proceed with the surgical resection and chemotherapy for the goal of attacking the disease lianna. She is not very confucianism, and was okay with aborting the , [...] but cytopenias have limited that. Admitted to [facility] after 5th cycle, 3rd VAC, due [...] vs radiation?) She comes back in after 10th cycle of dose-adjusted alternating VAC/IE, (dose- adjusted cytoxan to 1g/m2; etoposide to 100mg/m2 day 1-4 and ifos 1800mg/m2 day 1-4 due to significant cytopenias). In with mother. Genital ulcers and hemorrhoids have been major issues; with the extra couple weeks off around the holidays, these have resolved for now. She has been riding her horse regularly of late. 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 Vitals: 10/25/18 0802 BP: 108/65 Pulse: 106 Resp: 14 Temp: 36.6 C (97.8 F) TempSrc: Oral SpO2: 100% Weight: 53.6 kg (118 lb 3.2 oz) Height: 165.1 cm (65") Body mass index is 19.67 kg/m. Pain Score: Zero Pain Addressed: N/A [...] diff Lab Results Component Value Date/Time WBC 36.0 (H) 10/24/2018 07:56 AM RBC 3.15 (L) 10/24/2018 07:56 AM HGB 10.0 (L) 10/24/2018 07:56 AM HCT 30.3 (L) 10/24/2018 07:56 AM MCV 96.2 10/24/2018 07:56 AM MCH 31.7 10/24/2018 07:56 AM MCHC 32.9 10/24/2018 07:56 AM RDW 19.4 (H) 10/24/2018 07:56 AM PLTCT 102 (L) 10/24/2018 07:56 AM MPV 7.8 10/24/2018 07:56 AM Lab Results Component Value Date/Time NEUT 95 (H) 10/16/2018 12:35 PM ANC 31.32 (H) 10/24/2018 07:56 AM ANC 4.20 10/16/2018 12:35 PM LYMA 4 (L) 10/16/2018 12:35 PM ALC 0.20 (L) 10/16/2018 12:35 PM JADE 1 (L) 10/16/2018 12:35 PM AMC 0.00 10/16/2018 12:35 PM EOSA 0 10/16/2018 12:35 PM AEC 0.00 10/16/2018 12:35 PM BASA 0 10/16/2018 12:35 PM ABC 0.00 10/16/2018 12:35 PM Comprehensive Metabolic Profile Lab Results Component Value Date/Time NA 140 10/24/2018 07:56 AM K 3.9 10/24/2018 07:56 AM CL 102 10/24/2018 07:56 AM CO2 31 (H) 10/24/2018 07:56 AM GAP 7 10/24/2018 07:56 AM BUN 14 10/24/2018 07:56 AM CR 0.56 10/24/2018 07:56 AM GLU 90 10/24/2018 07:56 AM Lab Results Component Value Date/Time CA 9.5 10/24/2018 07:56 AM ALBUMIN 4.4 10/24/2018 07:56 AM TOTPROT 6.3 10/24/2018 07:56 AM ALKPHOS 127 (H) 10/24/2018 07:56 AM AST 63 (H) 10/24/2018 07:56 AM ALT 60 (H) 10/24/2018 07:56 AM TOTBILI <0.1 (L) 10/24/2018 07:56 AM GFR >60 10/24/2018 07:56 AM GFRAA >60 10/24/2018 07:56 AM PET 10/24/18: 1. Prior left great toe amputation with [...] this lesion on follow-up imaging is recommended. Echo 10/24/18: Normal left ventricular contractility. Estimated LVEF 60%. Normal RV contractility. Normal valvular structures. Trace mitral, tricuspid, and pulmonic regurgitation. Estimated PA pressure 14 mmHg. Trivial pericardial effusion. No prior study available for comparison. Assessment and Plan: Patient Active Problem List [...] pathology revealing a poorly differentiated neoplasm, [facility] consultation called it a small round blue [...] is very high). She went to an particle board supervisor who concurred with the decision to proceed with the surgical resection and chemotherapy for the goal of attacking the disease lianna. She is not very confucianism, and was okay with aborting the , [...] but cytopenias have limited that. Admitted to [facility] after 5th cycle, 3rd VAC, due [...] vs radiation?) She comes back in after 10th cycle of dose-adjusted alternating VAC/IE, (dose- adjusted cytoxan to 1g/m2; etoposide to 100mg/m2 day 1-4 and ifos 1800mg/m2 day 1-4 due to significant cytopenias). In with mother. Genital ulcers and hemorrhoids have been major issues; with the extra couple weeks off around the holidays, these have resolved for now. She has been riding her horse regularly of late. 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 Continue cycle #11 this week, with hopes of finishing out [...] will call me if any problems arise. Leukocytosis is from recent Neulasta. 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
--- OUTSIDE RECORDS SUMMARY | 2018-12-04 16:12 | XMS REPORT | Encounter Summary ---
Author Author [facility] Organization [facility] Address Unknown Phone Unavailable Care Team Providers Care Food And Nutrition Supervisor Name Role Phone Karyn Anderson MD PCP Samuel Kelly DPM 21 Roe Aleman DO Unavailable Reason for Referral * Test (Routine) Referred By Contact Referred To Contact Status Reason Specialty Diagnoses / [place] [address] [place] [address] Cvm Ovpk Echo/Pv [facility] [place] Bldg3 3rd fl [phone] [place] [address] No Auth Needed Cardiology Diagnoses Rodarte's sarcoma (HCC) P rocedures 2-D + DOPPLER ECHOCARDIOGRAM VT ECHO TTHRC R-T 2D W/WOM-MODE COMPL SPEC&COLR D * Test (Routine) Referred By Contact Referred To Contact Status Reason Specialty Diagnoses / [place] [address] [place] [address] Cvm Ovpk Echo/Pv [facility] [place] [facility] 3rd fl [phone] [place] [address] No Auth Needed Cardiology Diagnoses Rodarte's sarcoma (HCC) P rocedures 2-D + DOPPLER ECHOCARDIOGRAM VT ECHO TTHRC R-T 2D W/WOM-MODE COMPL SPEC&COLR D Reason for Visit * Test (Routine) Referred By Contact Referred To Contact Status Reason Specialty Diagnoses / [place] [address] [place] [address] Cvm Ovpk Echo/Pv [facility] Bldg3 3rd nc [phone] [place] [address] No Auth Needed Cardiology Diagnoses Rodarte's sarcoma (HCC) P rocedures 2-D + DOPPLER ECHOCARDIOGRAM VT ECHO TTHRC R-T 2D W/WOM-MODE COMPL SPEC&COLR D Encounter Details Care Team Description [place] [address] [place] [address] [phone] 10/24/2018 Hospital Cardiovascular Medicine Encounter [facility] Bldg3 3rd [address]c [phone] [place] [address] Social History Date Tobacco Use Types Packs/Day [...] Vital Signs Time Taken Vital Sign Reading 10/24/2018 10:10 AM HEALTH UNIT SUPERVISOR Blood Pressure 117/68 - Pulse - - Temperature - - Respiratory Rate - - Oxygen Saturation - - Inhaled Oxygen - Concentration 10/24/2018 10:10 AM HEALTH UNIT SUPERVISOR Weight 53.1 kg (117 lb) 10/24/2018 10:10 AM HEALTH UNIT SUPERVISOR Height 165.1 cm (5' 5") 10/24/2018 10:10 AM HEALTH UNIT SUPERVISOR Body Mass Index 19.47 in this encounter Functional Status Date of [...] Comments Procedure Name Priority Date/Time Associated Diagnosis 2-D + DOPPLER Routine 10/24/2018 Rodarte's sarcoma ([facility]) ECHOCARDIOGRAM 10:10 AM HEALTH UNIT SUPERVISOR in this encounter Results * 2-D + DOPPLER ECHOCARDIOGRAM (10/24/2018 10:10 AM HEALTH UNIT SUPERVISOR) IVS 0.54 0.6 - 0.9 cm OTHER [...] 34 OTHER OUTSIDE LAB Cardiology Ultrasound Siemens [id number] OTHER OUTSIDE LAB Machine Left Ventricle Mass [...] Address City/State/Zipcode Phone Number OTHER OUTSIDE LAB in this encounter Visit Diagnoses Diagnosis 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
--- OUTSIDE RECORDS SUMMARY | 2018-12-04 16:12 | XMS REPORT | Encounter Summary ---
Author Author [facility] Organization [facility] Address Unknown Phone Unavailable Care Team Providers Care Emissions Testing And Repair Technician Name Role Phone Karyn Anderson MD PCP Samuel Kelly DPM 21 Roe Aleman DO Unavailable Reason for Visit * Reason Comments Treatment * Treatment (Routine) Referred By Contact Referred To Contact Status Reason Specialty Diagnoses / [place] [address] [place] [address] [place] [address] [address] Authorized Hematology Diagnoses Malignant neoplasm of short [...] Description Date [place] [address] [address] [phone] 10/25/2018 [facility] - OP Treatment [address] [address] Social History Date Tobacco Use [...] as of this encounter Progress Notes * Arlet Ortega, WALLY - 10/25/2018 11:51 AM RIG MANAGER Pt presents today for tx following visit with Dr. Adams. Lumens flushed with saline with positive blood return noted. [place] d/c today r/t to decrease in cytoxan dose. Pt tolerated infusions without incident. Pt received 1L NS today. Lumens flushed with saline and patient released in stable condition. CHEMO NOTE Verified chemo consent signed and in chart. Verified initiate chemo order in O2 Blood return positive via: Rodriguez BSA and dose double checked (agree with orders as written) with: yes see MAR Labs/applicable tests checked: CBC and Comprehensive Metabolic Panel (CMP) Chemo regime: Drug/cycle/day Vincristine 2mg, Dactinomycin 1.875mg, Cytoxan 1500mg/ Day 1 Rate verified and armband double checkwith second RN: yes see MAR Patient education offered and stated understanding. Denies questions at this time. MANAGER in this encounter Miscellaneous Notes * Addendum Note - Hannah Menon - 10/27/2018 7:54 AM RIG MANAGER Encounter addended by: Hannah Menon on: 10/27/2018 7:54 AM Actions taken: Charge Capture section accepted MANAGER * Addendum Note - Arlet Ortega RN - 10/25/2018 2:31 PM RIG MANAGER Encounter addended by: Arlet Ortega RN on: 10/25/2018 2:31 PM Actions taken: Sign clinical note MANAGER in this encounter Plan of Treatment Not on fileas of this encounter Visit Diagnoses 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 Administered Medications Action Date Dose Rate Site Medication Order MAR Action 10/25/2018 9:29 AM RIG MANAGER 130 mg aprepitant emulsion (CINVANTI) 7.2 mg/mL Given injection 130 mg 130 mg, Intravenous, ONCE, 1 dose, Tue10/25/18 at 0915, - Use immediately after drawn into syringe. - Give IV push over 2 minutes., 10/25/2018 10:45 AM RIG MANAGER 1,500 mg 325 mL/hr cyclophosphamide (CYTOXAN) 1,500 mg in Given - New sodium chloride 0.9% (NS) 325 mL IVPB Bag 1,500 mg (1 g/m2 1.5 m2 Treatment plan recorded BSA), Intravenous, 325 mL, Administer over 1 Hours, ONCE, 1 dose, Tue10/25/18 at 1000, NURSING: To be administered by Chemotherapy Competency-validated nurse. NOTE: This is a HIGH ALERT Medication. SPECIAL TUBING REQUIRED , 10/25/2018 10:38 AM RIG MANAGER 1.875 mg DACTINomycin (COSMEGEN) injection 1.875 Given mg 1.875 mg (1.25 mg/m2 1.5 m2 Treatment plan recorded BSA), Intravenous, ONCE, 1 dose, Tue10/25/18 at 1000, Give IV Push over 1-3 minutes. NURSING: To be administered by Chemotherapy Competency-validated nurse. AVOID EXTRAVASATION NOTE: This is a HIGH ALERT Medication., 10/25/2018 9:34 AM RIG MANAGER 12 mg 300 mL/hr dexamethasone (DECADRON) 12 mg in sodium Given - New chloride 0.9% (NS) 50 mL IVPB Bag 12 mg, Intravenous, 50 mL, Administer over 10 Minutes, ONCE, 1 dose, Tue10/25/18 at 0915 10/25/2018 9:26 AM RIG MANAGER 0.25 mg palonosetron(+) (ALOXI) injection 0.25 Given mg 0.25 mg, Intravenous, ONCE, 1 dose, Tue10/25/18 at 0915 10/25/2018 11:47 AM RIG MANAGER 1,000 mL 500 mL/hr sodium chloride 0.9 % infusion Infusion 1,000 mL, 1,000 mL, Intravenous, at 500 Restarted mL/hr, ONCE, 1 dose, Tue10/25/18 at 0915, Cancer Center Infusion 1,000 mL 500 mL/hr Given - New Bag 10/25/2018 9:18 AM RIG MANAGER 10/25/2018 10:20 AM RIG MANAGER 2 mg 300 mL/hr vincristine (ONCOVIN) 2 mg in sodium Given - New chloride 0.9% (NS) 50 mL IVPB Bag 2 mg, Intravenous, 50 mL, Administer over 10 Minutes, ONCE, 1 dose, Tue10/25/18 at 0945, NURSING: To be administered by Chemotherapy Competency-validated nurse. NOTE: This is a HIGH ALERT Medication. SPECIAL TUBING REQUIRED , in this encounter
--- OUTSIDE RECORDS SUMMARY | 2018-12-04 16:13 | XMS REPORT | Encounter Summary ---
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 Office Visit [facility] - OP Exam [address] [address] Social History Date Tobacco Use [...] Vital Signs Time Taken Vital Sign Reading 10/16/2018 11:49 AM AUTOMOTIVE PARTS SALESPERSON Blood Pressure 106/64 10/16/2018 11:49 AM AUTOMOTIVE PARTS SALESPERSON Pulse 106 10/16/2018 11:49 AM AUTOMOTIVE PARTS SALESPERSON Temperature 36.9 C (98.4 F) 10/16/2018 11:49 AM AUTOMOTIVE PARTS SALESPERSON Respiratory Rate 14 10/16/2018 11:49 AM AUTOMOTIVE PARTS SALESPERSON Oxygen Saturation 100% - Inhaled Oxygen - Concentration 10/16/2018 11:49 AM AUTOMOTIVE PARTS SALESPERSON Weight 53.4 kg (117 lb 12.8 oz) 10/16/2018 11:49 AM AUTOMOTIVE PARTS SALESPERSON Height 165.1 cm (5' 5") 10/16/2018 11:49 AM AUTOMOTIVE PARTS SALESPERSON Body Mass Index 19.6 in this encounter Functional Status Date of [...] as of this encounter Progress Notes * Robina Salgado APRN - 10/16/2018 3:30 PM AUTOMOTIVE PARTS SALESPERSON Date of Service: 10/16/2018 Subjective: Reason for Visit: Cancer Evelin Mancilla [...] 02/21/2018, pathology revealing a poorly differentiated neoplasm, [facility] consultation called it a small round [...] is very high). She went to an lockstitch lining setter who concurred with the decision to proceed with the surgical resection and chemotherapy for the goal of attacking the disease lianna. She is not very methodist, and was okay with aborting the , [...] cytopenias have limited that. Admitted to [facility] after 5th cycle, 3rd VAC, due [...] She is here at Day 8 of IE. She had a syncopal episode yesterday and was transported by ambulance to the local ER. She was given 2 L Ns and started on Levaquin for concerns of UTI. BP was low. She states that she felt pretty good Tuesday and Tuesday and that this hit her all of the sudden on 10/15/18. She is still a little lightheaded and dizzy with standing, but nothing like yesterday. Review of Systems Neurological: Positive for syncope. Objective: acetaminophen (TYLENOL) 325 mg tablet Take [...] at bedtime as needed for Sleep. Vitals: 10/16/18 1149 BP: 106/64 Pulse: 106 Resp: 14 Temp: 36.9 C (98.4 F) TempSrc: Oral SpO2: 100% Weight: 53.4 kg (117 lb 12.8 oz) Height: 165.1 cm (65") Body mass index is 19.6 kg/m. Pain Score: Zero Pain Addressed: N/A [...] Result Value Ref Range White Blood Cells 4.5 4.5 - 11.0 K/UL RBC 2.09 (L) 4.0 - 5.0 M/UL Hemoglobin 7.0 (L) 12.0 - 15.0 GM/DL Hematocrit 20.1 (L) 36 - 45 % MCV 96.4 80 - 100 FL MCH 33.7 26 - 34 PG MCHC 34.9 32.0 - 36.0 G/DL RDW 21.6 (H) 11 - 15 % Platelet Count 108 (L) 150 - 400 K/UL MPV 7.1 7 - 11 FL Neutrophils 95 (H) 41 - 77 % Lymphocytes 4 (L) 24 - 44 % Monocytes 1 (L) 4 - 12 % Eosinophils 0 0 - 5 % Basophils 0 0 - 2 % Absolute Neutrophil Count 4.20 1.8 - 7.0 K/UL Absolute Lymph Count 0.20 (L) 1.0 - 4.8 K/UL Absolute Monocyte Count 0.00 0 - 0.80 K/UL Absolute Eosinophil Count 0.00 0 - 0.45 K/UL Absolute Basophil Count 0.00 0 - 0.20 K/UL HYPO PRESENT Teardrop PRESENT Platelet Estimate SLT DEC COMPREHENSIVE METABOLIC PANEL Result Value Ref Range Sodium 135 (L) 137 - 147 MMOL/L Potassium 3.5 3.5 - 5.1 MMOL/L Chloride 102 98 - 110 MMOL/L Glucose 121 (H) 70 - 100 MG/DL Blood Urea Nitrogen 19 7 - 25 MG/DL Creatinine 0.43 0.4 - 1.00 MG/DL Calcium 9.2 8.5 - 10.6 MG/DL Total Protein 6.5 6.0 - 8.0 G/DL Total Bilirubin 0.5 0.3 - 1.2 MG/DL Albumin 4.4 3.5 - 5.0 G/DL Alk Phosphatase 67 25 - 110 U/L AST (SGOT) 29 7 - 40 U/L CO2 26 21 - 30 MMOL/L ALT (SGPT) 48 7 - 56 U/L Anion Gap 7 3 - 12 eGFR Non >60 >60 mL/min eGFR >60 >60 mL/min Assessment and Plan: Problem List Items Addressed This Visit Oncology Rodarte's sarcoma (HCC) Relevant Orders NURSING COMMUNICATION: TYPE & CROSSMATCH TRANSFUSE RBC'S NON-BLEEDING PT Other Visit Diagnoses Antineoplastic chemotherapy induced anemia - Primary Relevant Orders NURSING COMMUNICATION: TYPE & CROSSMATCH TRANSFUSE RBC'S NON-BLEEDING PT 2. Anemia due to chemo PLAN: Discussed with Dr. Adams and will give 1 L NS today and 2 units PRBCs on 10/17/18. Questions and concerns addressed. She is in agreement with plan. 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
--- OUTSIDE RECORDS SUMMARY | 2018-12-04 16:13 | XMS REPORT | Encounter Summary ---
Author Author [facility] Organization [facility] Address Unknown Phone Unavailable Care Team Providers Care Drop Machine Operator Name Role Phone Karyn Anderson MD PCP Samuel Kelly DPM 21 Roe Aleman DO Unavailable Reason for Visit * Reason Comments Dehydration Treatment Heme/Onc Care Encounter Details Care Team Description Date [place] [address] [address] 10/16/2018 [facility] - OP Treatment [address] [address] Social History Date Tobacco Use [...] * Patient Instructions* Marisela Martins RN - 10/16/2018 1:07 PM OB SCRUB TECH Call Immediately to report the following: Uncontrolled nausea and/or vomiting, uncontrolled pain, or unusual bleeding. Temperature of 100.4 F or greater and/or any sign/symptom of infection (redness , warmth, tenderness) Painful mouth or difficulty swallowing Red, cracked, or painful hands and/or feet Diarrhea Swelling of arms or legs Rash Important Phone Numbers: OP Cancer Center Main Number (answered 24 hours a day) [phone] Cancer Center Scheduling (appointments) [phone] [facility] (for nutritional supplements) [phone] SCRUB TECH in this encounter Medications at Time of [...] mg tabletIndications: BY MOUTH AT Rodarte's sarcoma ([facility]) BEDTIME DAILY. ON DAYS 1-4 OF EACH CYCLE 05/03/2018 11/28/2018 ondansetron (ZOFRAN) 8 mg Take one 30 tablet 5 tabletIndications: tablet by [facility] ([facility]) mouth every 8 hours as needed (nausea and vomiting). 08/31/2018 10/18/2018 prednisone (DELTASONE) 50 Take one 5 tablet 3 mg tablet tablet by mouth daily with breakfast. 08/22/2018 10/20/2018 prochlorperazine maleate TAKE 1 TABLET 30 tablet 0 (COMPAZINE) 10 mg tablet BY MOUTH EVERY 6 HOURS NEEDED FOR NAUSEA OR VOMITING as of this encounter Progress Notes * Marisela Martins RN - 10/16/2018 1:07 PM OB SCRUB TECH Patient here for lab draw and IV fluids. One liter of normal saline administered as ordered. Therapy completed and tolerated well. Dressing changed per protocol. Discharged home ambulatory in stable condition. 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
--- OUTSIDE RECORDS SUMMARY | 2018-12-04 16:13 | XMS REPORT | Encounter Summary ---
Author Author [facility] Organization [facility] Address Unknown Phone Unavailable Care Team Providers Care Balancing Machine Operator Name Role Phone Karyn Anderson MD PCP Samuel Kelly DPM 21 Roe Aleman DO Unavailable Reason for Visit * Reason Comments Blood Transfusion Encounter Details Care Team Description Date [place] [address] [address] Blood Transfusion 10/16/2018 Telephone [facility] - OP Exam [address] [address] Social History Date Tobacco Use [...] Telephone Encounter - Ailin Virgen RN - 10/16/2018 1:14 PM SENIOR ENVIRONMENTAL ENGINEER Patient set up for 2 units PRBC at [facility] tomorrow at 9:30am. All orders faxed. Patient aware of date/time OR ENVIRONMENTAL ENGINEER in this encounter Plan of Treatment Not on fileas of this encounter Visit Diagnoses Not on filein this encounter
--- OUTSIDE RECORDS SUMMARY | 2018-12-04 16:13 | XMS REPORT | Encounter Summary ---
Author Author [facility] Address Unknown Phone Unavailable Care Team Providers Care Security Systems Sales Representative Name Role Phone Karyn Anderson MD PCP Samuel Kelly DPM 21 Roe Aleman DO Unavailable Encounter Details Care Team Description Date [place] [address] [address] 10/23/2018 Orders Only [facility] - OP Exam [address] [address] Social History Date Tobacco Use [...]
--- OUTSIDE RECORDS SUMMARY | 2018-12-04 16:13 | XMS REPORT | Encounter Summary ---
Author Author [facility] Organization [facility] Address Unknown Phone Unavailable Care Team Providers Care Concrete Batching Plant Operator Name Role Phone Karyn Anderson MD PCP Samuel Kelly DPM 21 Roe Aleman DO Unavailable Reason for Referral * Radiology Services (Routine) Referred By Contact Referred To Contact Status Reason Specialty Diagnoses / [place] [address] [place] [address] [facility] [address] [place] [address] No Auth Needed Radiology Diagnoses Rodarte's sarcoma (HCC) P rocedures NM PET SCAN WHOLEBODY (HEAD-TOES) * Radiology Services (Routine) Referred By Contact Referred To Contact Status Reason Specialty Diagnoses / [place] [address] [place] [address] [facility] [address] [place] [address] No Auth Needed Radiology Diagnoses Rodarte's sarcoma (HCC) P rocedures NM PET SCAN WHOLEBODY (HEAD-TOES) Reason for Visit * Radiology Services (Routine) Referred By Contact Referred To Contact Status Reason Specialty [place] / [place] [address] [place] [address] [facility] [address] [place] [address] No Auth Needed Radiology Diagnoses Rodarte's sarcoma (HCC) P rocedures NM PET SCAN WHOLEBODY (HEAD-TOES) Encounter Details Care Team Description [place] [address] [place] [address] [phone] 10/24/2018 [facility] [address] [place] [address] Social History Date Tobacco Use Types Packs/Day [...] Comments Procedure Name Priority Date/Time Associated Diagnosis NM PET SCAN WHOLEBODY Routine 10/24/2018 Rodarte's sarcoma (HCC) (HEAD-TOES) 8:13 AM DIGITAL CONTENT COORDINATOR in this encounter Results * NM PET SCAN WHOLEBODY (HEAD-TOES) (10/24/2018 8:13 AM DIGITAL CONTENT COORDINATOR) Impressions Performed At 1.Prior left great toe [...] D.O. on 10/24/2018 12:14 PM. Dictated by dT Lincoln M.D. on 10/24/2018 8:52 AM. Narrative Performed At [place] PET SCAN WHOLE BODY (HEAD-TOES) [facility] Radiopharmaceutical: 11.5 mCi F-18 Fluorodeoxyglucose (FDG) IV. Clinical Indication: Rodarte sarcoma. Technique: PET imaging was performed from the vertex to the toes 70 minutes after tracer administration. Low dose non-contrast CT imaging was performed for attenuation correction and localization purposes. Current mean hepatic SUV (reported for fuel quality tech purposes) is 2.4. Blood glucose level (at [...] Interface, Radiant Results - 10/24/2018 12:19 PM DIGITAL CONTENT COORDINATOR NM PET SCAN WHOLE BODY (HEAD-TOES) Radiopharmaceutical: 11.5 mCi F-18 Fluorodeoxyglucose (FDG) IV. Clinical Indication: Rodarte sarcoma. Technique: PET imaging was performed from the vertex to the toes 70 minutes after tracer administration. Low dose non-contrast CT imaging was performed for attenuation correction and localization purposes. Current mean hepatic SUV ( reported for fuel quality tech purposes) is 2.4. 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
--- OUTSIDE RECORDS SUMMARY | 2018-12-04 16:13 | XMS REPORT | Encounter Summary ---
Author Author [facility] Organization [facility] Address Unknown Phone Unavailable Care Team Providers Care Personal Loan Specialist Name Role Phone Karyn Anderson MD PCP Samuel Kelly DPM 21 Roe Aleman DO Unavailable Reason for Visit * Reason Comments Medication Refill Encounter Details Care Team Description Date [place] [address] [address] 10/20/2018 Refill [facility] - OP Exam [address] [address] Social History Date Tobacco Use [...]
--- OUTSIDE RECORDS SUMMARY | 2018-12-04 16:13 | XMS REPORT | Encounter Summary ---
Author Author [facility] Organization [facility] Address Unknown Phone Unavailable Care Team Providers Care Wheel Aligner Name Role Phone Karyn Anderson MD PCP Samule Kelly DPM 21 Roe Aleman DO Unavailable Encounter Details Care Team Description Date [place] [address] [address] 10/24/2018 [facility] - OP Treatment [address] [address] Social History Date Tobacco Use [...] this encounter Discharge Instructions * Patient Instructions* Gregoria Cha RN - 10/24/2018 9:20 AM EMOTIONAL DISABILITIES TEACHER Call Immediately to report the following: Uncontrolled nausea and/or vomiting, uncontrolled pain, or unusual bleeding. Temperature of 100.4 F or greater and/or any sign/symptom of infection (redness , warmth, tenderness) Painful mouth or difficulty swallowing Red, cracked, or painful hands and/or feet Diarrhea Swelling of arms or legs Rash Important Phone Numbers: OP Cancer Center Main Number (answered 24 hours a day) [phone] Cancer Center Scheduling (appointments) [phone] [facility] (for nutritional supplements) [phone] Port Maintenance - If you have a port, it should be flushed every 6-8 weeks when not in use. Please check with your MD, nurse, or the jig and fixture builder. IONAL DISABILITIES TEACHER in this encounter Medications at Time of [...] as of this encounter Progress Notes * Gregoria Cha, WALLY - 10/24/2018 9:18 AM EMOTIONAL DISABILITIES TEACHER Dressing changed per protocol. Site looks clean, dry and intact. She states that she is doing well, no new issues. She had a PET scan today, will get results tomorrow. Discharged in good condition. 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
[2018-12-04] MEDS ORDERED: NS IV 1000 ML 1,000 ML IV STA (16:14)
--- OUTSIDE RECORDS SUMMARY | 2018-12-04 16:14 | XMS REPORT | Encounter Summary ---
Author Author [facility] Organization [facility] Address Unknown Phone Unavailable Care Team Providers Care Senior Premium Auditor Name Role Phone Karyn Anderson MD PCP Samuel Kelly DPM 21 Roe Aleman DO Unavailable Reason for Visit * Reason Comments Treatment * Treatment (Routine) Referred By Contact Referred To Contact Status Reason Specialty Diagnoses / [place] [address] [place] [phone] [place] [address] [address] Authorized Hematology Diagnoses Malignant neoplasm of short [...] Description Date [place] [address] [address] [phone] 10/11/2018 [facility] - OP Treatment [address] [address] Social History Date Tobacco Use [...] Vital Signs Time Taken Vital Sign Reading 10/11/2018 8:04 AM INFORMATION CLERK BROKERAGE Blood Pressure 104/60 10/11/2018 8:04 AM INFORMATION CLERK BROKERAGE Pulse 100 10/11/2018 8:04 AM INFORMATION CLERK BROKERAGE Temperature 36.8 C (98.3 F) 10/11/2018 8:04 AM INFORMATION CLERK BROKERAGE Respiratory Rate 16 10/11/2018 8:04 AM INFORMATION CLERK BROKERAGE Oxygen Saturation 100% - Inhaled Oxygen - Concentration 10/11/2018 8:04 AM INFORMATION CLERK BROKERAGE Weight 54.6 kg (120 lb 6.4 oz) 10/11/2018 8:04 AM INFORMATION CLERK BROKERAGE Height 165.1 cm (5' 5") 10/11/2018 8:04 AM INFORMATION CLERK BROKERAGE Body Mass Index 20.04 in this encounter Functional Status Date of Assessment Functional Status Response 10/10/2018 Does the patient have a hearing impairment: No 10/10/2018 Does the patient have a visual impairment: Yes 10/10/2018 Does the patient have impaired ambulation: No 10/10/2018 Does the patient have an activity of daily living No (ADL) impairment: 10/10/2018 Does the patient have an instrumental activity of No daily living (IADL) impairment: Date of Assessment Cognitive Status Response 10/10/2018 Does the patient have a cognitive impairment: No as of this encounter Discharge Instructions * Patient Instructions* Gregoria Cha RN - 10/11/2018 8:51 AM INFORMATION CLERK BROKERAGE Call Immediately to report the following: Uncontrolled nausea and/or vomiting, uncontrolled pain, or unusual bleeding. Temperature of 100.4 F or greater and/or any sign/symptom of infection (redness , warmth, tenderness) Painful mouth or difficulty swallowing Red, cracked, or painful hands and/or feet Diarrhea Swelling of arms or legs Rash Important Phone Numbers: OP Cancer Center Main Number (answered 24 hours a day) [phone] Cancer Center Scheduling (appointments) [phone] Cancer Action (for nutritional supplements) [phone] Port Maintenance - If you have a port, it should be flushed every 6-8 weeks when not in use. Please check with your MD, nurse, or the glaze wiper. RMATION CLERK BROKERAGE in this encounter Medications at Time of [...] needed for Pain Earliest Fill Date: 04/24/18 pyridoxine HCl (vitamin Take 100 mg 0 [...] this encounter Progress Notes * Gregoria Cha, RN - 10/11/2018 12:50 PM INFORMATION CLERK BROKERAGE CHEMO NOTE Verified chemo consent signed and in chart. Verified initiate chemo order in O2 Blood return positive via: Rodriguez BSA and dose double checked (agree with orders as written) with: yes Charity Labs/applicable tests checked: CBC and Comprehensive Metabolic Panel (CMP) Chemo regime: Ifex + Etoposide day 2 Rate verified and armband double checkwith second RN: yes Patient education offered and stated understanding. Denies questions at this time. Tolerated treatment well. Discharged in good condition. RMATION CLERK BROKERAGE in this encounter Miscellaneous Notes * Addendum Note - Estrella Godoy - 10/13/2018 10:47 AM INFORMATION CLERK BROKERAGE Encounter addended by: Estrella Godoy on: 10/13/2018 10:47 AM Actions taken: Charge Capture section accepted RMATION CLERK BROKERAGE in this encounter Plan of Treatment Not on fileas of this encounter Visit Diagnoses 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 Administered Medications Action Date Dose Rate Site Medication Order MAR Action 10/11/2018 8:42 AM INFORMATION CLERK BROKERAGE 8 mg 300 mL/hr dexamethasone (DECADRON) 8 mg in sodium Given - New chloride 0.9% (NS) 50 mL IVPB Bag 8 mg, Intravenous, 50 mL, Administer over 10 Minutes, ONCE, 1 dose, 10/11/18 at 0815 10/11/2018 9:00 AM INFORMATION CLERK BROKERAGE 150 mg 1007.5 mL/hr etoposide (VEPESID) 150 mg in sodium Given - New chloride 0.9% (NS) 1,007.5 mL IVPB Bag 150 mg (100 mg/m2 1.5 m2 Treatment plan recorded BSA), Intravenous, 1,007.5 mL, Administer over 1 Hours, ONCE, 1 dose, Tue10/11/18 at 0830, NURSING: To be administered by Chemotherapy Competency-validated nurse. NOTE: This is a HIGH ALERT Medication. SPECIAL TUBING REQUIRED , 10/11/2018 10:10 AM INFORMATION CLERK BROKERAGE 2,700 mg 152 mL/hr ifosfamide (IFEX) 2,700 mg in sodium Given - New chloride 0.9% (NS) IVPB Bag 2,700 mg (1,800 mg/m2 1.5 m2 Treatment plan recorded BSA), Intravenous, 304 mL, Administer over 2 Hours, ONCE, 1 dose, Tue10/11/18 at 0930, NURSING: To be administered by Chemotherapy Competency-validated nurse. NOTE: This is a HIGH ALERT Medication. SPECIAL TUBING REQUIRED , 10/11/2018 11:21 AM INFORMATION CLERK BROKERAGE 1.575 g 53.5 mL/hr mesna (MESNEX) 1.575 g in sodium Given - New chloride 0.9% (NS) 1,015.75 mL IVPB Bag 1.575 g (1.05 g/m2 1.5 m2 Treatment plan recorded BSA), Intravenous, 1,015.75 mL, Administer over 19 Hours, ONCE, 1 dose, Tue10/11/18 at 1000, infuse via CADD PLUS ambulatory pump, 10/11/2018 8:27 AM INFORMATION CLERK BROKERAGE 16 mg ondansetron (ZOFRAN) 16 mg in sodium Given - New chloride 0.9% (NS) IVPB Bag 16 mg, Intravenous, 58 mL, Administer over 15 Minutes, ONCE, 1 dose, Tue10/11/18 at 0815 10/11/2018 12:10 PM INFORMATION CLERK BROKERAGE 10 mg prochlorperazine (COMPAZINE) injection Given 10 mg 10 mg, Intravenous, ONCE, 1 dose, Tue10/11/18 at 1215, PROTECT FROM LIGHT -- May be given undiluted, or each 5mg may be diluted with 9 mL of NS to facilitate titration., in this encounter
--- OUTSIDE RECORDS SUMMARY | 2018-12-04 16:14 | XMS REPORT | Encounter Summary ---
Author Author [facility] Organization [facility] Address Unknown Phone Unavailable Care Team Providers Care Heel Seat Pounder Name Role Phone Karyn Anderson MD PCP Samuel Kelly DPM 21 Roe Aleman DO Unavailable Reason for Visit * Reason Comments Cancer neulasta, IVF, aloxi, decadron * Treatment (Routine) Referred By Contact Referred To Contact Status Reason Specialty Diagnoses / [place] [address] [place], [place] [phone] [place] [address] [place] [address] Authorized Hematology Diagnoses Malignant neoplasm of short [...] Description Date [place] [address] [place] [address] 10/14/2018 [facility] [address] [place] [address] Social History Date Tobacco Use Types Packs/Day [...] Vital Signs Time Taken Vital Sign Reading 10/14/2018 8:28 AM WEIGHER PACKING Blood Pressure 87/52 10/14/2018 8:28 AM WEIGHER PACKING Pulse 120 10/14/2018 8:28 AM WEIGHER PACKING Temperature 36.9 C (98.5 F) 10/14/2018 8:28 AM WEIGHER PACKING Respiratory Rate 18 10/14/2018 8:28 AM WEIGHER PACKING Oxygen Saturation 100% - Inhaled Oxygen - Concentration - Weight - - Height - - Body Mass Index - in this [...] tabletIndications: BY MOUTH AT Rodarte's sarcoma ([facility]) BEDTIME DAILY. ON DAYS 1-4 OF EACH CYCLE 05/03/2018 11/28/2018 ondansetron (ZOFRAN) 8 mg Take one 30 tablet 5 tabletIndications: tablet by Rodarte's sarcoma ([facility]) mouth every 8 hours as needed (nausea and vomiting). 08/31/2018 10/18/2018 prednisone (DELTASONE) 50 Take one 5 tablet 3 mg tablet tablet by mouth daily with breakfast. 08/22/2018 10/20/2018 prochlorperazine maleate TAKE 1 TABLET 30 tablet 0 (COMPAZINE) 10 mg tablet BY MOUTH EVERY 6 HOURS NEEDED FOR NAUSEA OR VOMITING as of this encounter Progress Notes * Maria Del Rosario Rojas RN - 10/14/2018 10:16 AM WEIGHER PACKING Pt to treatment alert, oriented, ambulatory with mother for IVF, CADD unhook ( IVF), aloxi, and decadron. Tolerated without complication. IVF CADD removed. Pt states nausea this morning. TO per Dr. Ramirez for Ativan PO for this. 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 Administered Medications Action Date Dose Rate Site Medication Order MAR Action 10/14/2018 8:44 AM WEIGHER PACKING 8 mg 300 mL/hr dexamethasone (DECADRON) 8 mg in sodium Given - New chloride 0.9% (NS) 50 mL IVPB Bag 8 mg, Intravenous, 50 mL, Administer over 10 Minutes, ONCE, 1 dose, 10/14/18 at 0915 10/14/2018 9:07 AM WEIGHER PACKING 1 mg LORazepam (ATIVAN) tablet 0.5-1 mg Given 0.5-1 mg, Oral, ONCE, 1 dose, 10/14/18 at 0900 10/14/2018 8:44 AM WEIGHER PACKING 0.25 mg palonosetron(+) (ALOXI) injection 0.25 Given mg 0.25 mg, Intravenous, ONCE, 1 dose, 10/14/18 at 0830 10/14/2018 8:44 AM WEIGHER PACKING 6 mg Abdominal Tissue pegfilgrastim (NEULASTA) syringe 6 mg Given 6 mg, Subcutaneous, ONCE, 1 dose, 10/14/18 at 0830, -- Not for IV Push administration --, 10/14/2018 8:44 AM WEIGHER PACKING 1,000 mL 800 mL/hr sodium chloride 0.9 % infusion Given - New 1,000 mL, 1,000 mL, Intravenous, at 800 Bag mL/hr, ONCE, 1 dose, 10/14/18 at 0830 in this encounter
--- OUTSIDE RECORDS SUMMARY | 2018-12-04 16:14 | XMS REPORT | Encounter Summary ---
Author Author [facility] Organization [facility] Address Unknown Phone Unavailable Care Team Providers Care Wheel Presser Name Role Phone Karyn Anderson MD PCP Samuel Kelly DPM 21 Roe Aleman DO Unavailable Reason for Visit * Reason Comments Chemotherapy Heme/Onc Care * Treatment (Routine) Referred By Contact Referred To Contact Status Reason Specialty Diagnoses / [place] [address] [place] [phone] [place] [address] [address] Authorized Hematology Diagnoses Malignant neoplasm of short [...] Description [place] [address] [place] [address] [phone] 10/12/2018 [facility] - OP Treatment [address] [address] Social History Date Tobacco Use Types Packs/Day [...] Vital Signs Time Taken Vital Sign Reading 10/12/2018 8:06 AM ELECTRON TUBE ASSEMBLER Blood Pressure 109/58 10/12/2018 8:06 AM ELECTRON TUBE ASSEMBLER Pulse 114 10/12/2018 8:06 AM ELECTRON TUBE ASSEMBLER Temperature 36.6 C (97.9 F) 10/12/2018 8:06 AM ELECTRON TUBE ASSEMBLER Respiratory Rate 18 10/12/2018 8:06 AM ELECTRON TUBE ASSEMBLER Oxygen Saturation 100% - Inhaled Oxygen - Concentration 10/12/2018 8:06 AM ELECTRON TUBE ASSEMBLER Weight 55.8 kg (123 lb) 10/12/2018 8:06 AM ELECTRON TUBE ASSEMBLER Height 165.1 cm (5' 5") 10/12/2018 8:06 AM ELECTRON TUBE ASSEMBLER Body Mass Index 20.47 in this encounter Functional Status Date of [...] * Patient Instructions* Marisela Martins RN - 10/12/2018 10:36 AM ELECTRON TUBE ASSEMBLER Call Immediately to report the following: Uncontrolled nausea and/or vomiting, uncontrolled pain, or unusual bleeding. Temperature of 100.4 F or greater and/or any sign/symptom of infection (redness , warmth, tenderness) Painful mouth or difficulty swallowing Red, cracked, or painful hands and/or feet Diarrhea Swelling of arms or legs Rash Important Phone Numbers: [facility] Cancer [facility] Main Number (answered 24 hours a day) [phone] Cancer Center Scheduling (appointments) [phone] Cancer Action (for nutritional supplements) [phone] TRON TUBE ASSEMBLER in this encounter Medications at Time of [...] Progress Notes * Marisela Martins RN - 10/12/2018 10:32 AM ELECTRON TUBE ASSEMBLER CHEMO NOTE Verified chemo consent signed and in chart. Verified initiate chemo order in O2 Blood return positive via: Rodriguez BSA and dose double checked (agree with orders as written) with: yes Labs/applicable tests checked: None Chemo regime: Drug/cycle/day Day 3 IE Rate verified and armband double checkwith second RN: yes Patient education offered and stated understanding. Denies questions at this time. Patient here for treatment day 3. Voices no complaints today other than fatigue and mild transient nausea. Premeds administered. . Treatment administered as ordered. 1145 C/O nausea and requests compazine. Ordered and administered. Therapy completed and tolerated well. She is feeling better after compazine. Dismissed home with Mesna infusing via ambulatory infusion pump to run over 19 hours. 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 Administered Medications Action Date Dose Rate Site Medication Order MAR Action 10/12/2018 8:30 AM ELECTRON TUBE ASSEMBLER 8 mg 300 mL/hr dexamethasone (DECADRON) 8 mg in sodium Given - New chloride 0.9% (NS) 50 mL IVPB Bag 8 mg, Intravenous, 50 mL, Administer over 10 Minutes, ONCE, 1 dose, Luly 10/12/18 at 0815 10/12/2018 9:22 AM ELECTRON TUBE ASSEMBLER 150 mg 1007.5 mL/hr etoposide (VEPESID) 150 mg in sodium Given - New chloride 0.9% (NS) 1,007.5 mL IVPB Bag 150 mg (100 mg/m2 1.5 m2 Treatment plan recorded BSA), Intravenous, 1,007.5 mL, Administer over 1 Hours, ONCE, 1 dose, Luly 10/12/18 at 0830, NURSING: To be administered by Chemotherapy Competency-validated nurse. NOTE: This is a HIGH ALERT Medication. SPECIAL TUBING REQUIRED , 10/12/2018 10:28 AM ELECTRON TUBE ASSEMBLER 2,700 mg 152 mL/hr ifosfamide (IFEX) 2,700 mg in sodium Given - New chloride 0.9% (NS) IVPB Bag 2,700 mg (1,800 mg/m2 1.5 m2 Treatment plan recorded BSA), Intravenous, 304 mL, Administer over 2 Hours, ONCE, 1 dose, Luly 10/12/18 at 0930, NURSING: To be administered by Chemotherapy Competency-validated nurse. NOTE: This is a HIGH ALERT Medication. SPECIAL TUBING REQUIRED , 10/12/2018 12:52 PM ELECTRON TUBE ASSEMBLER 1.575 g 53.5 mL/hr mesna (MESNEX) 1.575 g in sodium Given - New chloride 0.9% (NS) 1,015.75 mL IVPB Bag 1.575 g (1.05 g/m2 1.5 m2 Treatment plan recorded BSA), Intravenous, 1,015.75 mL, Administer over 19 Hours, ONCE, 1 dose, Luly 10/12/18 at 1000, infuse via CADD PLUS ambulatory pump, 10/12/2018 8:40 AM ELECTRON TUBE ASSEMBLER 16 mg ondansetron (ZOFRAN) 16 mg in sodium Given - New chloride 0.9% (NS) IVPB Bag 16 mg, Intravenous, 58 mL, Administer over 15 Minutes, ONCE, 1 dose, Luly 10/12/18 at 0815 10/12/2018 11:50 AM ELECTRON TUBE ASSEMBLER 10 mg prochlorperazine (COMPAZINE) injection Given 10 mg 10 mg, Intravenous, EVERY 6 HOURS PRN, Starting Luly 10/12/18 at 1142, Until Tue10/17/18 at 0208, Nausea/Vomiting Injectable, PROTECT FROM LIGHT -- May be given undiluted, or each 5mg may be diluted with 9 mL of NS to facilitate titration., in this encounter
--- OUTSIDE RECORDS SUMMARY | 2018-12-04 16:14 | XMS REPORT | Encounter Summary ---
Author Author [facility] Organization [facility] Address Unknown Phone Unavailable Care Team Providers Care Wet Washer Machine Name Role Phone Karyn Anderson MD PCP Samuel Kelly DPM 21 Roe Aleman DO Unavailable Encounter Details Care Team Description Date [place] [address] [address] 10/16/2018 [facility] - OP Lab [address] [address] Social History Date Tobacco Use [...] Date/Time Associated Diagnosis CBC AND DIFF Routine 10/16/2018 Rodarte's sarcoma (HCC) 12:35 PM ONCOLOGY COORDINATOR COMPREHENSIVE METABOLIC Routine 10/16/2018 Rodarte's sarcoma (HCC) PANEL 12:35 PM ONCOLOGY COORDINATOR in this encounter Results * COMPREHENSIVE METABOLIC PANEL (10/16/2018 12:35 PM ONCOLOGY COORDINATOR) Sodium 135 (L) 137 - 147 MMOL/L [facility] Potassium 3.5 3.5 - 5.1 MMOL/L [facility] Chloride 102 98 - 110 MMOL/L [facility] Glucose 121 (H) 70 - 100 MG/DL [facility] Blood Urea Nitrogen 19 7 - 25 MG/DL [facility] Creatinine 0.43 0.4 - 1.00 MG/DL [facility] Calcium 9.2 8.5 - 10.6 MG/DL [facility] Total Protein 6.5 6.0 - 8.0 G/DL [facility] Total Bilirubin 0.5 0.3 - 1.2 MG/DL [facility] Albumin 4.4 3.5 - 5.0 G/DL [facility] Alk Phosphatase 67 25 - 110 U/L [facility] AST (SGOT) 29 7 - 40 U/L [facility] CO2 26 21 - 30 MMOL/L [facility] ALT (SGPT) 48 7 - 56 U/L [facility] [...] Number [facility] [address] [place] [address] * CBC AND DIFF (10/16/2018 12:35 PM ONCOLOGY COORDINATOR) White Blood Cells 4.5 4.5 - 11.0 K/UL [facility] [place] RBC 2.09 (L) 4.0 - 5.0 M/UL [facility] [place] Hemoglobin 7.0 (L) 12.0 - 15.0 GM/DL [facility] Hematocrit 20.1 (L) 36 - 45 % [facility] [place] MCV 96.4 80 - [address] [facility] [place] MCH 33.7 26 - [address] [facility] [place] MCHC 34.9 32.0 - 36.0 G/DL [facility] RDW 21.6 (H) 11 - 15 % [facility] Platelet Count 108 (L) 150 - 400 K/UL [facility] [place] MPV 7.1 7 - [address] [facility] [place] Neutrophils 95 (H) 41 - 77 % [facility] [place] Lymphocytes 4 (L) 24 - 44 % [facility] [place] Monocytes 1 (L) 4 - 12 % [facility] [place] Eosinophils 0 0 - 5 % [facility] [place] Basophils 0 0 - 2 % [facility] [place] Absolute Neutrophil Count 4.20 1.8 - 7.0 K/UL [facility] Absolute Lymph Count 0.20 (L) 1.0 - 4.8 K/UL [facility] Absolute Monocyte Count 0.00 0 - 0.80 K/UL [facility] Absolute Eosinophil Count 0.00 0 - 0.45 K/UL [facility] Absolute Basophil Count 0.00 0 - 0.20 K/UL [facility] HYPO PRESENT [facility] Teardrop PRESENT [facility] Platelet Estimate SLT DEC 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
--- OUTSIDE RECORDS SUMMARY | 2018-12-04 16:14 | XMS REPORT | Encounter Summary ---
Author Author [facility] Organization [facility] Address Unknown Phone Unavailable Care Team Providers Care Chief Design Drafter Name Role Phone Karyn Anderson MD PCP Samuel Kelly DPM 21 Roe Aleman DO Unavailable Reason for Visit * Reason Comments Treatment Heme/Onc Care Nausea * Treatment (Routine) Referred By Contact Referred To Contact Status Reason Specialty Diagnoses / [place] [address] [place] [address] [place] [address] [address] Authorized Hematology Diagnoses Malignant neoplasm of short [...] Description Date [place] [address] [place] [address] [phone] 10/13/2018 [facility] - OP Treatment [address] [address] Social History Date Tobacco Use [...] Vital Signs Time Taken Vital Sign Reading 10/13/2018 8:04 AM MEDICAL ASSISTING PROGRAM DIRECTOR Blood Pressure 101/59 10/13/2018 8:04 AM MEDICAL ASSISTING PROGRAM DIRECTOR Pulse 113 10/13/2018 8:04 AM MEDICAL ASSISTING PROGRAM DIRECTOR Temperature 36.8 C (98.2 F) - Respiratory Rate - 10/13/2018 8:04 AM MEDICAL ASSISTING PROGRAM DIRECTOR Oxygen Saturation 100% - Inhaled Oxygen - Concentration 10/13/2018 8:04 AM MEDICAL ASSISTING PROGRAM DIRECTOR Weight 53.6 kg (118 lb 3.2 oz) 10/13/2018 8:04 AM MEDICAL ASSISTING PROGRAM DIRECTOR Height 165.1 cm (5' 5") 10/13/2018 8:04 AM MEDICAL ASSISTING PROGRAM DIRECTOR Body Mass Index 19.67 in this encounter [...] * Patient Instructions* Marisela Martins RN - 10/13/2018 8:35 AM MEDICAL ASSISTING PROGRAM DIRECTOR Call Immediately to report the following: Uncontrolled nausea and/or vomiting, uncontrolled pain, or unusual bleeding. Temperature of 100.4 F or greater and/or any sign/symptom of infection (redness , warmth, tenderness) Painful mouth or difficulty swallowing Red, cracked, or painful hands and/or feet Diarrhea Swelling of arms or legs Rash Important Phone Numbers: OP Cancer Center Main Number (answered 24 hours a day) [phone] Cancer Center Scheduling (appointments) [phone] [id number] Cancer Action (for nutritional supplements) [phone] CAL ASSISTING PROGRAM DIRECTOR in this encounter Medications at Time of [...] Progress Notes * Marisela Martins RN - 10/13/2018 8:35 AM MEDICAL ASSISTING PROGRAM DIRECTOR CHEMO NOTE Verified chemo consent signed and in chart. Verified initiate chemo order in O2 Blood return positive via: Rodriguez BSA and dose double checked (agree with orders as written) with: yes Labs/applicable tests checked: None Chemo regime: Drug/cycle/day Day 4 IE Rate verified and armband double checkwith second RN: yes Patient education offered and stated understanding. Denies questions at this time. Patient here for treatment day 4. C/O nausea this AM and requests additional antiemetics. Compazine and Ativan administered as ordered. Treatment administered as ordered and tolerated well. Relief from nausea received. Dismissed with Mesna infusing via ambulatory infusion pump to run over 19 hours. 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 Administered Medications Action Date Dose Rate Site Medication Order MAR Action 10/13/2018 8:40 AM MEDICAL ASSISTING PROGRAM DIRECTOR 8 mg 300 mL/hr dexamethasone (DECADRON) 8 mg in sodium Given - New chloride 0.9% (NS) 50 mL IVPB Bag 8 mg, Intravenous, 50 mL, Administer over 10 Minutes, ONCE, 1 dose, 10/13/18 at 0815 10/13/2018 9:47 AM MEDICAL ASSISTING PROGRAM DIRECTOR 150 mg 1007.5 mL/hr etoposide (VEPESID) 150 mg in sodium Given - New chloride 0.9% (NS) 1,007.5 mL IVPB Bag 150 mg (100 mg/m2 1.5 m2 Treatment plan recorded BSA), Intravenous, 1,007.5 mL, Administer over 1 Hours, ONCE, 1 dose, Tue10/13/18 at 0830, NURSING: To be administered by Chemotherapy Competency-validated nurse. NOTE: This is a HIGH ALERT Medication. SPECIAL TUBING REQUIRED , 10/13/2018 10:55 AM MEDICAL ASSISTING PROGRAM DIRECTOR 2,700 mg 152 mL/hr ifosfamide (IFEX) 2,700 mg in sodium Given - New chloride 0.9% (NS) IVPB Bag 2,700 mg (1,800 mg/m2 1.5 m2 Treatment plan recorded BSA), Intravenous, 304 mL, Administer over 2 Hours, ONCE, 1 dose, Tue10/13/18 at 0930, NURSING: To be administered by Chemotherapy Competency-validated nurse. NOTE: This is a HIGH ALERT Medication. SPECIAL TUBING REQUIRED , 10/13/2018 8:58 AM MEDICAL ASSISTING PROGRAM DIRECTOR 1 mg LORazepam (ATIVAN) injection 1 mg Given 1 mg, Intravenous, ONCE, 1 dose, Tue10/13/18 at 0845, PROTECT FROM LIGHT, 10/13/2018 1:02 PM MEDICAL ASSISTING PROGRAM DIRECTOR 1.575 g 53.5 mL/hr mesna (MESNEX) 1.575 g in sodium Given - New chloride 0.9% (NS) 1,015.75 mL IVPB Bag 1.575 g (1.05 g/m2 1.5 m2 Treatment plan recorded BSA), Intravenous, 1,015.75 mL, Administer over 19 Hours, ONCE, 1 dose, Tue10/13/18 at 1000, infuse via CADD PLUS ambulatory pump, 10/13/2018 8:23 AM MEDICAL ASSISTING PROGRAM DIRECTOR 16 mg ondansetron (ZOFRAN) 16 mg in sodium Given - New chloride 0.9% (NS) IVPB Bag 16 mg, Intravenous, 58 mL, Administer over 15 Minutes, ONCE, 1 dose, Tue10/13/18 at 0815 10/13/2018 9:00 AM MEDICAL ASSISTING PROGRAM DIRECTOR 10 mg prochlorperazine (COMPAZINE) injection Given 10 mg 10 mg, Intravenous, ONCE, 1 dose, Tue10/13/18 at 0845, PROTECT FROM LIGHT -- May be given undiluted, or each 5mg may be diluted with 9 mL of NS to facilitate titration., in this encounter
[2018-12-04] MEDS ORDERED: HYOSCYAMINE 0.125 MG (LEVSIN) TAB SL ONE (16:15)
[2018-12-04] MEDS ORDERED: ONDANSETRON 4 MG/2 ML (SDV) Z0FRAN IVP ONE (16:15)
--- OUTSIDE RECORDS SUMMARY | 2018-12-04 16:15 | XMS REPORT | Encounter Summary ---
Author Author [facility] Organization [facility] Address Unknown Phone Unavailable Care Team Providers Care Refresh Technician Name Role Phone Karyn Anderson MD PCP Samuel Kelly DPM 21 Roe Aleman DO Unavailable Reason for Visit * Reason Comments Heme/Onc Care Encounter Details Care Team Description Date Type Department Kimberly Salgado, AGRONOMY MANAGER [address] [address] Rodarte's sarcoma (HCC) (Primary Dx) 10/02/2018 Office Visit [facility] - OP Exam [address] [address] Social History Date Tobacco Use [...] Vital Signs Time Taken Vital Sign Reading 10/02/2018 2:58 PM MANAGER TITLE Blood Pressure 107/63 10/02/2018 2:58 PM MANAGER TITLE Pulse 96 10/02/2018 2:58 PM MANAGER TITLE Temperature 37 C (98.6 F) 10/02/2018 2:58 PM MANAGER TITLE Respiratory Rate 16 10/02/2018 2:58 PM MANAGER TITLE Oxygen Saturation 100% - Inhaled Oxygen - Concentration 10/02/2018 2:58 PM MANAGER TITLE Weight 52.9 kg (116 lb 9.6 oz) 10/02/2018 2:58 PM MANAGER TITLE Height 165.1 cm (5' 5") 10/02/2018 2:58 PM MANAGER TITLE Body Mass Index 19.4 in this encounter Functional Status Date of Assessment Functional Status Response 10/02/2018 Does the patient have a hearing impairment: No 10/02/2018 Does the patient have a visual impairment: Yes 10/02/2018 Does the patient have impaired ambulation: No 10/02/2018 Does the patient have an activity of daily living No (ADL) impairment: 10/02/2018 Does the patient have an instrumental activity of No daily living (IADL) impairment: Date of Assessment Cognitive Status Response 10/02/2018 Does the patient have a cognitive impairment: No as of this encounter Progress Notes * Kimberly SalgadoMARAH - 10/02/2018 3:00 PM MANAGER TITLE Name: Evelin Mancilla : 1995 AGE: 22 y.o. DATE OF SERVICE: 10/02/2018 Subjective: Reason for Visit: Heme/Onc Care Evelin [...] revealing a poorly differentiated neoplasm, [facility] consultation called it a small round blue [...] is very high). She went to an database reporting consultant who concurred with the decision to proceed with the surgical resection and chemotherapy for the goal of attacking the disease lianna. She is not very voodoo, and was okay with aborting the , [...] but cytopenias have limited that. Admitted to [facility] after 5th cycle, 3rd VAC, due to [...] Day 8 of VAC. She is feeling ok, tired, but as expected. No fevers or infectious concerns. Review of [...] at bedtime as needed for Sleep. Vitals: 10/02/18 1458 BP: 107/63 Pulse: 96 Resp: 16 Temp: 37 C (98.6 F) TempSrc: Oral SpO2: 100% Weight: 52.9 kg (116 lb 9.6 oz) Height: 165.1 cm (65") Body mass index is 19.4 kg/m. Pain Score: Zero Pain Addressed: N/A [...] HENT: Head: Atraumatic. Mouth/Throat: No oropharyngeal exudate. Eyes: EOM are normal. No scleral icterus. Neck: Neck supple. Cardiovascular: Normal rate and regular rhythm. No murmur heard. Pulmonary/Chest: Effort normal and breath sounds normal. No respiratory distress. She has no wheezes. Abdominal: Soft. Bowel sounds are normal. She exhibits no distension and no mass. Musculoskeletal: Normal range of motion. She exhibits no edema. Lymphadenopathy: She has no cervical adenopathy. Neurological: She is alert and oriented to person, place, and time. No cranial nerve deficit. Coordination normal. Skin: Skin is warm and dry. No pallor. Psychiatric: She has a normal mood and affect. Her behavior is normal. Judgment and thought content normal. CBC w diff Lab Results Component Value Date/Time WBC 0.3 (LL) 10/02/2018 02:47 PM RBC 2.67 (L) 10/02/2018 02:47 PM HGB 8.7 (L) 10/02/2018 02:47 PM HCT 25.2 (L) 10/02/2018 02:47 PM MCV 94.6 10/02/2018 02:47 PM MCH 32.6 10/02/2018 02:47 PM MCHC 34.4 10/02/2018 02:47 PM RDW 22.5 (H) 10/02/2018 02:47 PM PLTCT 51 (L) 10/02/2018 02:47 PM MPV 7.8 10/02/2018 02:47 PM Assessment and Plan: 1. 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 2. Neutropenia PLAN: Reviewed CBC and she was given a copy. Neutropenic precautions reviewed. Questions and concerns addressed. She is in agreement with plan. 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
--- OUTSIDE RECORDS SUMMARY | 2018-12-04 16:15 | XMS REPORT | Encounter Summary ---
Author Author [facility] Organization [facility] Address Unknown Phone Unavailable Care Team Providers Care Asphalt Distributor Operator Name Role Phone Karyn Anderson MD PCP Samuel Kelly DPM 21 Roe Aleman DO Unavailable Reason for Visit * Treatment (Routine) Referred By Contact Referred To Contact Status Reason Specialty Diagnoses / [place] [address] [place] [address] [place] [address] [address] Authorized Hematology Diagnoses Malignant neoplasm of short [...] Description [place] [address] [place] [address] [phone] 10/10/2018 [facility] - OP Treatment [address] [address] Social History Date Tobacco Use [...] * Patient Instructions* Gregoria Cha RN - 10/10/2018 8:36 AM PRODUCT DEMONSTRATOR Call Immediately to report the following: Uncontrolled nausea and/or vomiting, uncontrolled pain, or unusual bleeding. Temperature of 100.4 F or greater and/or any sign/symptom of infection (redness , warmth, tenderness) Painful mouth or difficulty swallowing Red, cracked, or painful hands and/or feet Diarrhea Swelling of arms or legs Rash Important Phone Numbers: Cancer Center Main Number (answered 24 hours a day) [phone] Cancer Center Scheduling (appointments) [phone] [facility] Action (for nutritional supplements) [phone] Port Maintenance - If you have a port, it should be flushed every 6-8 weeks when not in use. Please check with your MD, nurse, or the planner scheduler. UCT DEMONSTRATOR in this encounter Medications at Time of [...] Progress Notes * Gregoria Cha, RN - 10/10/2018 3:00 PM PRODUCT DEMONSTRATOR Labs drawn from Rodriguez without difficulties. She states that she is doing well, no new issues. She was seen by Dr. Adams today. Ok to treat. CHEMO NOTE Verified chemo consent signed and in chart. Verified initiate chemo order in O2 Blood return positive via: Rodriguez BSA and dose double checked (agree with orders as written) with: yes Jing Lazar RN Labs/applicable tests checked: CBC and Comprehensive Metabolic Panel (CMP) Chemo regime: Etoposide + Ifex Rate verified and armband double checkwith second RN: yes Patient education offered and stated understanding. Denies questions at this time. Tolerated treatment well, no issues. Dressing changed per protocol. Discharged in good condition with Mesna pump functioning properly. 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 - Give IV push over 2 minutes., 10/10/2018 9:46 AM PRODUCT DEMONSTRATOR 12 mg 300 mL/hr dexamethasone (DECADRON) 12 mg in sodium Given - New chloride 0.9% (NS) 50 mL IVPB Bag 12 mg, Intravenous, 50 mL, Administer over 10 Minutes, ONCE, 1 dose, Tue10/10/18 at 0915 10/10/2018 11:32 AM PRODUCT DEMONSTRATOR 150 mg 1007.5 mL/hr etoposide (VEPESID) 150 mg in sodium Given - New chloride 0.9% (NS) 1,007.5 mL IVPB Bag 150 mg (100 mg/m2 1.5 m2 Treatment plan recorded BSA), Intravenous, 1,007.5 mL, Administer over 1 Hours, ONCE, 1 dose, 10/10/18 at 0945, NURSING: To be administered by Chemotherapy Competency-validated nurse. NOTE: This is a HIGH ALERT Medication. SPECIAL TUBING REQUIRED , 10/10/2018 12:52 PM PRODUCT DEMONSTRATOR 2,700 mg 152 mL/hr ifosfamide (IFEX) 2,700 mg in sodium Given - New chloride 0.9% (NS) IVPB Bag 2,700 mg (1,800 mg/m2 1.5 m2 Treatment plan recorded BSA), Intravenous, 304 mL, Administer over 2 Hours, ONCE, 1 dose, 10/10/18 at 1115, NURSING: To be administered by Chemotherapy Competency-validated nurse. NOTE: This is a HIGH ALERT Medication. SPECIAL TUBING REQUIRED , 10/10/2018 10:11 AM PRODUCT DEMONSTRATOR 1,125 mg 255.6 mL/hr mesna (MESNEX) 1,125 mg in sodium Given - New chloride 0.9% (NS) 511.25 mL IVPB Bag 1,125 mg (750 mg/m2 1.5 m2 Treatment plan recorded BSA), Intravenous, 511.25 mL, Administer over 2 Hours, ONCE, 1 dose, 10/10/18 at 0915, Pre-Hydration, 10/10/2018 12:53 PM PRODUCT DEMONSTRATOR 1.575 g 53.5 mL/hr mesna (MESNEX) 1.575 g in sodium Given - New chloride 0.9% (NS) 1,015.75 mL IVPB Bag 1.575 g (1.05 g/m2 1.5 m2 Treatment plan recorded BSA), Intravenous, 1,015.75 mL, Administer over 19 Hours, ONCE, 1 dose, 10/10/18 at 1115, infuse via CADD PLUS ambulatory pump, 10/10/2018 9:31 AM PRODUCT DEMONSTRATOR 16 mg ondansetron (ZOFRAN) 16 mg in sodium Given - New chloride 0.9% (NS) IVPB Bag 16 mg, Intravenous, 58 mL, Administer over 15 Minutes, ONCE, 1 dose, 10/10/18 at 0915 in this encounter
--- OUTSIDE RECORDS SUMMARY | 2018-12-04 16:15 | XMS REPORT | Encounter Summary ---
Author Author [facility] Organization [facility] Address Unknown Phone Unavailable Care Team Providers Care Real Estate Sales Supervisor Name Role Phone Karyn Anderson MD PCP Samuel Kelly DPM 21 Roe Aleman DO Unavailable Encounter Details Care Team Description Date [place] [address] [address] 10/10/2018 [facility] - OP Lab [address] [address] Social History Date Tobacco Use [...] Date/Time Associated Diagnosis CBC AND DIFF Routine 10/10/2018 Rodarte's sarcoma (HCC) 8:26 AM LIME PLANT OPERATOR COMPREHENSIVE METABOLIC Routine 10/10/2018 Rodarte's sarcoma (HCC) PANEL 8:26 AM LIME PLANT OPERATOR in this encounter Results * COMPREHENSIVE METABOLIC PANEL (10/10/2018 8:26 AM LIME PLANT OPERATOR) Sodium 140 137 - 147 MMOL/L [facility] Potassium 3.9 3.5 - 5.1 MMOL/L [facility] Chloride 106 98 - 110 MMOL/L [facility] Glucose 111 (H) 70 - 100 MG/DL [facility] Blood Urea Nitrogen 10 7 - 25 MG/DL [facility] Creatinine 0.57 0.4 - 1.00 MG/DL [facility] Calcium 9.5 8.5 - 10.6 MG/DL [facility] Total Protein 6.2 6.0 - 8.0 G/DL [facility] Total Bilirubin 0.3 0.3 - 1.2 MG/DL [facility] Albumin 4.4 3.5 - 5.0 G/DL [facility] Alk Phosphatase 69 25 - 110 U/L [facility] AST (SGOT) 27 7 - 40 U/L [facility] CO2 29 21 - 30 MMOL/L [facility] ALT (SGPT) 27 7 - 56 U/L [facility] [...] City/State/Zipcode Phone Number [facility] [address] [place] [address] * CBC AND DIFF (10/10/2018 8:26 AM LIME PLANT OPERATOR) White Blood Cells 4.4 (L) 4.5 - 11.0 K/UL [facility] RBC 2.54 (L) 4.0 - 5.0 M/UL [facility] Hemoglobin 8.4 (L) 12.0 - 15.0 GM/DL [facility] Hematocrit 24.1 (L) 36 - 45 % [facility] MCV 95.1 80 - 100 [place] [facility] MCH 32.9 26 - 34 PG [facility] MCHC 34.6 32.0 - 36.0 G/DL [facility] RDW 21.2 (H) 11 - 15 % [facility] Platelet Count 128 (L) 150 - 400 K/UL [facility] MPV 7.6 7 - 11 FL [facility] Segmented Neutrophils 63 41 - 77 % [facility] Bands 6 0 - 10 % [facility] Lymphocytes 8 (L) 24 - 44 % [facility] Monocytes 18 (H) 4 - 12 % [facility] Eosinophil 1 0 - 5 % [facility] Metamyelocyte 1 % [facility] Myelocyte 3 % [facility] ANISO PRES[facility] POIK PRESENT [facility] Large Platelets PRESENT [facility] Teardrop PRESENT [facility] Platelet Estimate SLT DEC [facility] Absolute Neutrophil Count 3.03 1.8 - 7.0 K/UL [facility] Specimen Blood Performing Organization Address City/State/Zipcode Phone Number [facility] [address] [place] [address] in this encounter Visit Diagnoses 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
--- OUTSIDE RECORDS SUMMARY | 2018-12-04 16:15 | XMS REPORT | Encounter Summary ---
Author Author [facility] Organization [facility] Address Unknown Phone Unavailable Care Team Providers Care Power Lineworker Name Role Phone Karyn Anderson MD PCP Samuel Kelly DPM 21 Roe Aleman DO Unavailable Reason for Referral * Test (Routine) Referred By Contact Referred To Contact Status Reason Specialty Diagnoses / [place] [address] [place] [address] Cv Ovpk Echo/Pv [facility] [place] [facility] 3rd fl Tone [address] [place] [address] No Auth Needed Cardiology Diagnoses Rodarte's sarcoma (HCC) P rocedures 2-D + DOPPLER ECHOCARDIOGRAM AR ECHO TTHRC R-T 2D W/WOM-MODE COMPL SPEC&COLR D * Radiology Services (Routine) Referred By Contact Referred To Contact Status Reason Specialty Diagnoses / [place] [address] [place] [address] [facility] Op Nuclear Med [address] [place] [address] No Auth Needed Radiology Diagnoses Rodarte's sarcoma (HCC) P rocedures NM PET SCAN WHOLEBODY (HEAD-TOES) Reason for Visit * Reason Comments Cancer Encounter Details Care Team Description Date [place] [address] [place], [place] [id number] [phone] Rodarte's sarcoma (HCC) (Primary Dx); Genital ulcer, female 10/10/2018 Office Visit [facility] - OP Exam [address] [place] [address] [phone] Social History Date Tobacco Use Types Packs/Day [...] Vital Signs Time Taken Vital Sign Reading 10/10/2018 8:20 AM DIRECTOR OF ENTERTAINMENT Blood Pressure 101/62 10/10/2018 8:20 AM DIRECTOR OF ENTERTAINMENT Pulse 97 10/10/2018 8:20 AM DIRECTOR OF ENTERTAINMENT Temperature 36.4 C (97.6 F) 10/10/2018 8:20 AM DIRECTOR OF ENTERTAINMENT Respiratory Rate 16 10/10/2018 8:20 AM DIRECTOR OF ENTERTAINMENT Oxygen Saturation 100% - Inhaled Oxygen - Concentration 10/10/2018 8:20 AM DIRECTOR OF ENTERTAINMENT Weight 52.5 kg (115 lb 12.8 oz) 10/10/2018 8:20 AM DIRECTOR OF ENTERTAINMENT Height 165.1 cm (5' 5") 10/10/2018 8:20 AM DIRECTOR OF ENTERTAINMENT Body Mass Index 19.27 in this encounter Functional Status Date of [...] Progress Notes * Isreal Adams MD - 10/10/2018 8:40 AM DIRECTOR OF ENTERTAINMENT Name: Evelin Mancilla : 1995 AGE: 22 y.o. DATE OF SERVICE: 10/10/2018 Subjective: Reason for Visit: Cancer Evelin Brian Laurent is a 22 y.o. female. Cancer Staging [...] 02/21/2018, pathology revealing a poorly differentiated neoplasm, [facility] consultation called it a small round blue [...] is very high). She went to an investment associate who concurred with the decision to proceed [...] but cytopenias have limited that. Admitted to [facility] after 5th cycle, 3rd VAC, [...] vs radiation?) She comes back in after 9th cycle of dose-adjusted alternating VAC/IE, (dose- adjusted [...] has required multiple blood transfusions to date. Review of Systems Constitutional: Negative. Negative for [...] at bedtime as needed for Sleep. Vitals: 10/10/18 0820 BP: 101/62 Pulse: 97 Resp: 16 Temp: 36.4 C (97.6 F) TempSrc: Oral SpO2: 100% Weight: 52.5 kg (115 lb 12.8 oz) Height: 165.1 cm (65") Body mass index is 19.27 kg/m. Pain Score: Zero Pain Addressed: N/A [...] diff Lab Results Component Value Date/Time WBC 4.4 (L) 10/10/2018 08:26 AM RBC 2.54 (L) 10/10/2018 08:26 AM HGB 8.4 (L) 10/10/2018 08:26 AM HCT 24.1 (L) 10/10/2018 08:26 AM MCV 95.1 10/10/2018 08:26 AM MCH 32.9 10/10/2018 08:26 AM MCHC 34.6 10/10/2018 08:26 AM RDW 21.2 (H) 10/10/2018 08:26 AM PLTCT 128 (L) 10/10/2018 08:26 AM MPV 7.6 10/10/2018 08:26 AM Lab Results Component Value Date/Time NEUT 69 09/25/2018 08:44 AM ANC 3.03 10/10/2018 08:26 AM ANC 2.60 09/25/2018 08:44 AM LYMA 16 (L) 09/25/2018 08:44 AM ALC 0.60 (L) 09/25/2018 08:44 AM JADE 13 (H) 09/25/2018 08:44 AM AMC 0.50 09/25/2018 08:44 AM EOSA 1 09/25/2018 08:44 AM AEC 0.00 09/25/2018 08:44 AM BASA 1 09/25/2018 08:44 AM ABC 0.00 09/25/2018 08:44 AM Assessment and Plan: Problem Genital Ulcer, Female Likely due to myelosuppression associated with chemo Now on proph acyclovir BID throughout chemo - the few extra weeks around the holidays has resolved this for now, but likely to recur as we continue on chemo in the near future Rodarte's Sarcoma (Hcc) At 22 yrs old, [...] 02/21/2018, pathology revealing a poorly differentiated neoplasm, [facility] consultation called it a small round blue [...] is very high). She went to an investment associate who concurred with the decision to proceed [...] but cytopenias have limited that. Admitted to [facility] after 5th cycle, 3rd VAC, [...] vs radiation?) She comes back in after 9th cycle of dose-adjusted alternating VAC/IE, (dose- adjusted [...] has required multiple blood transfusions to date. A/P: 22 yo healthy F c CIC-rearranged [...] and secondary cancers, amongst others. Continue cycle #10 this week, then repeat PET whole body and echo after this cycle. Dose-reduced strategy is to allow her to continue pushing forward with chemo. Ordered levaquin to have at home if she starts running fevers. Acyclovir for proph against more genital ulcer outbreaks. Discussed with the patient and all questions fully answered. She will call me if any problems arise. CTOR OF ENTERTAINMENT in this encounter Plan of Treatment Not on fileas of this encounter Results * 2-D + DOPPLER ECHOCARDIOGRAM (10/24/2018 10:10 AM DIRECTOR OF ENTERTAINMENT) IVS 0.54 0.6 - 0.9 cm OTHER [...] 34 OTHER OUTSIDE LAB Cardiology Ultrasound Siemens [id number] OTHER OUTSIDE LAB Machine Left Ventricle Mass [...] PET SCAN WHOLEBODY (HEAD-TOES) (10/24/2018 8:13 AM DIRECTOR OF ENTERTAINMENT) Impressions Performed At 1.Prior left great toe [...] on 10/24/2018 8:52 AM. Narrative Performed At [facility] PET SCAN WHOLE BODY (HEAD-TOES) [facility] RAD RESULTS Radiopharmaceutical: 11.5 mCi F-18 Fluorodeoxyglucose (FDG) IV. Clinical Indication: Rodarte sarcoma. Technique: PET imaging was performed from the vertex to the toes 70 minutes after tracer administration. Low dose non-contrast CT imaging was performed for attenuation correction and localization purposes. Current mean hepatic SUV (reported for quality associate purposes) is 2.4. Blood glucose level (at [...] Interface, Radiant Results - 10/24/2018 12:19 PM [facility] PET SCAN WHOLE BODY (HEAD-TOES) Radiopharmaceutical: 11.5 mCi F-18 Fluorodeoxyglucose (FDG) IV. Clinical Indication: Rodarte sarcoma. Technique: PET imaging was performed from the vertex to the toes 70 minutes after tracer administration. Low dose non-contrast CT imaging was performed for attenuation correction and localization purposes. Current mean hepatic SUV ( reported for quality associate purposes) is 2.4. Blood glucose level (at [...] of bone and articular cartilage, site unspecified Genital ulcer, female Other specified disorders of female genital organs in this encounter
--- OUTSIDE RECORDS SUMMARY | 2018-12-04 16:15 | XMS REPORT | Encounter Summary ---
Author Author [facility] Organization [facility] Address Unknown Phone Unavailable Care Team Providers Care Operations Officer Trust Department Name Role Phone Karyn Anderson MD PCP Samuel Kelly DPM 21 Roe Aleman DO Unavailable Reason for Visit * Reason Comments Critical Result Encounter Details Care Team Description Date [place] [address] [address] Critical Result 10/02/2018 Telephone [facility] - OP Exam [address] [address] Social History Date Tobacco Use [...] encounter Miscellaneous Notes * Telephone Encounter - Flori Barone RN - 10/02/2018 3:14 PM BOXER OPERATOR CRITICAL RESULT NOTIFICATION Critical result or procedure called (document test and value, and read back): WBC 0.3 Time MD/COSMETICS SUPERVISOR Notified: 1516 MD/COSMETICS SUPERVISOR Name: Kimberly Salgado APRN MD/COSMETICS SUPERVISOR Response/Orders Given: non; Kimberly saw patient in clinic today. R OPERATOR in this encounter Plan of Treatment Not on fileas of this encounter Visit Diagnoses Not on filein this encounter
--- OUTSIDE RECORDS SUMMARY | 2018-12-04 16:15 | XMS REPORT | Encounter Summary ---
Author Author [facility] Organization [facility] Address Unknown Phone Unavailable Care Team Providers Care Dining Car Conductor Name Role Phone Karyn Anderson MD PCP Samuel Kelly DPM 21 Roe Aleman DO Unavailable Encounter Details Care Team Description Date [place] [address] [address] 10/05/2018 Orders Only [facility] - OP Exam [address] [address] Social History Date Tobacco Use [...]
--- OUTSIDE RECORDS SUMMARY | 2018-12-04 16:15 | XMS REPORT | Encounter Summary ---
Author Author [facility] Organization [facility] Address Unknown Phone Unavailable Care Team Providers Care Groundskeeper Name Role Phone Karyn Anderson MD PCP Samuel Kelly DPM 21 Roe Aleman DO Unavailable Encounter Details Care Team Description Date Type Department Mehreen Maharaj 10/10/2018 Documentation [facility] - OP Exam [address] [address] Social History Date Tobacco Use [...] encounter Progress Notes * Mehreen Maharaj - 10/10/2018 9:51 AM FREIGHT CAR BUILDER Social Work Note Name: Evelin Torres [facility] #: [id number] PLAN: Assist pt with local lodging and handicap placard application. INTERVENTIONS: SW notified by VIANNEY Barone pt is staying locally this week for pt's treatment schedule and may need assistance with lodging. EVIN met with pt and her mother and pt's mother explained they want to stay at [facility] next to [facility] OP due to their vehicle not being very reliable currently. SW offered to contact [facility] to see if they can offer any discount to pt and pt's mother would appreciate this. Pt's mother also informed SW pt applied for Medicaid earlier this month with [facility] financial staff and asked how long it typically takes to be approved. EVIN explained the approval process can vary but encouraged her to follow up with the financial staff at [facility]. EVIN informed pt and mother SW spoke to [facility] about this previously and they won't have access to pt's Medicaid application since pt completed it at a different facility. Pt and mother verbalized understanding. EVIN encouraged pt and mother to update SW if and when pt gets Medicaid approval. EVIN informed them pt may have access to transportation, lodging, and meal reimbursement benefits if pt is approved for Medicaid. EVIN contacted John with [facility], , and discussed pt's need to stay for 4 nights beginning today. John spoke to his staff and offered pt a discount for a standard burton room at $63.64/night or standard [place]ton room with pull out sofa at $83.64/night. Pt to notify staff EVIN spoke to John about these rates so that pt gets the discount. EVIN met with pt and mother again and provided them with the [facility] room offers. Pt's mother will go book the room today. Pt inquired about getting her handicap placard renewed because it expires on 10/20/18. SW to assist with this and provide to pt. EVIN encouraged pt and mother to keep pt's receipts of the hotel stay and track mileage for all appointments as pt may be eligible for reimbursement if pt's Medicaid is approved. EVIN completed part of the [place] Handicap Placard application and provided to CNC who completed part of the application. EVIN provided the application to pt and pt denies any other needs at this time. Mehreen Maharaj LMSW *[id number] GHT CAR BUILDER in this encounter Plan of Treatment Not on fileas of this encounter Visit Diagnoses Not on filein this encounter
--- OUTSIDE RECORDS SUMMARY | 2018-12-04 16:16 | XMS REPORT | Encounter Summary ---
Author Author [facility] Organization [facility] Address Unknown Phone Unavailable Care Team Providers Care Graphic Coordinator Name Role Phone Karyn Anderson MD PCP Samuel Kelly DPM 21 Roe Aleman DO Unavailable Reason for Visit * Reason Comments Heme/Onc Care Treatment Chemotherapy * Treatment (Routine) Referred By Contact Referred To Contact Status Reason Specialty Diagnoses / [place] [address] [place] [address] [place] [address] [address] Authorized Hematology Diagnoses Malignant neoplasm of short [...] Description Date [place] [address] [place] [address] [phone] 09/26/2018 [facility] - OP Treatment [address] [address] Social History Date Tobacco Use [...] Vital Signs Time Taken Vital Sign Reading 09/26/2018 11:42 AM DENTAL SERVICES DIRECTOR Blood Pressure 109/71 09/26/2018 11:42 AM DENTAL SERVICES DIRECTOR Pulse 97 09/26/2018 11:42 AM DENTAL SERVICES DIRECTOR Temperature 36.6 C (97.9 F) 09/26/2018 11:42 AM DENTAL SERVICES DIRECTOR Respiratory Rate 16 09/26/2018 11:42 AM DENTAL SERVICES DIRECTOR Oxygen Saturation 100% - Inhaled Oxygen - Concentration 09/26/2018 11:42 AM DENTAL SERVICES DIRECTOR Weight 53.4 kg (117 lb 12.8 oz) 09/26/2018 11:42 AM DENTAL SERVICES DIRECTOR Height 165.1 cm (5' 5") 09/26/2018 11:42 AM DENTAL SERVICES DIRECTOR Body Mass Index 19.6 in this encounter Functional Status Date of Assessment Functional Status Response 09/04/2018 Does the patient have a hearing impairment: No 09/04/2018 Does the patient have a visual impairment: Yes 09/04/2018 Does the patient have impaired ambulation: No 09/04/2018 Does the patient have an activity of daily living No (ADL) impairment: 09/04/2018 Does the patient have an instrumental activity of No daily living (IADL) impairment: Date of Assessment Cognitive Status Response 09/04/2018 Does the patient have a cognitive impairment: No as of this encounter Discharge Instructions * Patient Instructions* Marisela Martins RN - 09/26/2018 1:30 PM DENTAL SERVICES DIRECTOR Call Immediately to report the following: Uncontrolled nausea and/or vomiting, uncontrolled pain, or unusual bleeding. Temperature of 100.4 F or greater and/or any sign/symptom of infection (redness , warmth, tenderness) Painful mouth or difficulty swallowing Red, cracked, or painful hands and/or feet Diarrhea Swelling of arms or legs Rash Important Phone Numbers: OP Cancer Center Main Number (answered 24 hours a day) [phone] Cancer Center Scheduling (appointments) [phone] [facility] (for nutritional supplements) [phone] AL SERVICES DIRECTOR in this encounter Medications at Time [...] 500 mg tablet tablet by mouth daily. 09/01/2018 09/29/2018 OLANZapine (ZYPREXA) 10 TAKE 1 TABLET 12 tablet 0 mg tabletIndications: BY MOUTH AT Rodarte's sarcoma ([facility]) BEDTIME DAILY. ON DAYS 1-4 OF EACH CYCLE 05/03/2018 11/28/2018 ondansetron (ZOFRAN) 8 mg Take one 30 tablet 5 tabletIndications: tablet by Rodarte's sarcoma ([facility]) mouth every 8 hours as needed (nausea and vomiting). 08/31/2018 10/18/2018 prednisone (DELTASONE) 50 Take one 5 tablet 3 mg tablet tablet by mouth daily with breakfast. 08/22/2018 10/20/2018 prochlorperazine maleate TAKE 1 TABLET 30 tablet 0 (COMPAZINE) 10 mg tablet BY MOUTH EVERY 6 HOURS NEEDED FOR NAUSEA OR VOMITING as of this encounter Progress Notes * Marisela Martins RN - 09/26/2018 1:27 PM DENTAL SERVICES DIRECTOR CHEMO NOTE Verified chemo consent signed and in chart. Verified initiate chemo order in O2 Blood return positive via: Rodriguez BSA and dose double checked (agree with orders as written) with: yes Labs/applicable tests checked: None Chemo regime: Drug/cycle/day Day 2 VAC - Doxorubicin Rate verified and armband double checkwith second RN: yes Patient education offered and stated understanding. Denies questions at this time. Patient here for treatment day 2. Voices no complaints. Antiemetics and one liter of normal saline administered as ordered. Day 2 Adriamycin pump initiated to run over 24 hours. Therapy completed and tolerated well. Discharged home ambulatory. 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 Administered Medications Action Date Dose Rate Site Medication Order MAR Action 09/26/2018 12:11 PM DENTAL SERVICES DIRECTOR 8 mg 300 mL/hr dexamethasone (DECADRON) 8 mg in sodium Given - New chloride 0.9% (NS) 50 mL IVPB Bag 8 mg, Intravenous, 50 mL, Administer over 10 Minutes, ONCE, 1 dose, 09/26/18 at 1145 09/26/2018 12:45 PM DENTAL SERVICES DIRECTOR 56.26 mg 2 mL/hr DOXOrubicin (ADRIAMYCIN) 56.26 mg in Given - New sodium chloride 0.9% (NS) 48 mL IVPB Bag 56.26 mg (rounded from 56.25 mg=37.5 mg/m2 1.5 m2 Treatment plan recorded BSA), Intravenous, 48 mL, Administer over 24 Hours, ONCE, 1 dose, 09/26/18 at 1200, Infuse over 24 hours via ambulatory pump. PROTECT FROM LIGHT -- CENTRAL LINE REQUIRED NURSING: To be administered by Chemotherapy Competency-validated nurse. NOTE: This is a HIGH ALERT Medication., 09/26/2018 12:08 PM DENTAL SERVICES DIRECTOR 0.25 mg palonosetron(+) (ALOXI) injection 0.25 Given mg 0.25 mg, Intravenous, ONCE, 1 dose, 09/26/18 at 1145 09/26/2018 12:08 PM DENTAL SERVICES DIRECTOR 1,000 mL 800 mL/hr sodium chloride 0.9 % infusion Given - New 1,000 mL, 1,000 mL, Intravenous, at 800 Bag mL/hr, ONCE, 1 dose, 09/26/18 at 1145 in this encounter
--- OUTSIDE RECORDS SUMMARY | 2018-12-04 16:16 | XMS REPORT | Encounter Summary ---
Author Author [facility] Organization [facility] Address Unknown Phone Unavailable Care Team Providers Care Disease Intervention Specialist Name Role Phone Karyn Anderson MD PCP Samuel Kelly DPM 21 Roe Aleman DO Unavailable Reason for Visit * Reason Comments Appointment Encounter Details Care Team Description Date [place] [address] [address] Appointment 09/28/2018 Telephone [facility] - OP Exam [address] [address] Social History Date Tobacco Use [...] Telephone Encounter - Flori Barone RN - 09/28/2018 9:44 AM PLASTIC PANEL INSTALLER Patient's mother calling because patient was only scheduled for 3 days of treatment. Needs treatment 4 days + neulasta. Sent change to schedulers. Call to Loren to update. Left detailed message. TIC PANEL INSTALLER in this encounter Plan of Treatment Not on fileas of this encounter Visit Diagnoses Not on filein this encounter
--- OUTSIDE RECORDS SUMMARY | 2018-12-04 16:16 | XMS REPORT | Encounter Summary ---
Author Author [facility] Organization [facility] Address Unknown Phone Unavailable Care Team Providers Care Parking Regulation Enforcement Officer Name Role Phone Karyn Anderson MD PCP Samuel Kelly DPM 21 Roe Aleman DO Unavailable Reason for Visit * Reason Comments Treatment Injection Heme/Onc Care Nausea * Treatment (Routine) Referred By Contact Referred To Contact Status Reason Specialty Diagnoses / [place] [address] [place] [address] [place] [address] [address] Authorized Hematology Diagnoses Malignant neoplasm of short [...] Description Date [place] [address] [place] [address] [phone] 09/27/2018 [facility] - OP Treatment [address] [address] Social History Date Tobacco Use [...] Vital Signs Time Taken Vital Sign Reading 09/27/2018 1:19 PM REPORTING LEAD Blood Pressure 106/64 09/27/2018 1:19 PM REPORTING LEAD Pulse 94 09/27/2018 1:19 PM REPORTING LEAD Temperature 36.5 C (97.7 F) 09/27/2018 1:19 PM REPORTING LEAD Respiratory Rate 16 09/27/2018 1:19 PM REPORTING LEAD Oxygen Saturation 100% - Inhaled Oxygen - Concentration 09/27/2018 1:19 PM REPORTING LEAD Weight 54.4 kg (120 lb) 09/27/2018 1:19 PM REPORTING LEAD Height 165.1 cm (5' 5") 09/27/2018 1:19 PM REPORTING LEAD Body Mass Index 19.97 in this encounter [...] * Patient Instructions* Marisela Martins RN - 09/27/2018 1:20 PM REPORTING LEAD Call Immediately to report the following: Uncontrolled nausea and/or vomiting, uncontrolled pain, or unusual bleeding. Temperature of 100.4 F or greater and/or any sign/symptom of infection (redness , warmth, tenderness) Painful mouth or difficulty swallowing Red, cracked, or painful hands and/or feet Diarrhea Swelling of arms or legs Rash Important Phone Numbers: OP Cancer Center Main Number (answered 24 hours a day) [phone] Cancer Center Scheduling (appointments) [phone] [facility] (for nutritional supplements) [phone] RTING LEAD in this encounter Medications at Time of [...] BY MOUTH AT Rodarte's sarcoma ([facility]) BEDTIME DAILY. ON DAYS 1-4 OF EACH [...] Progress Notes * Marisela Martins, RN - 09/27/2018 1:18 PM REPORTING LEAD Patient here for discontinuation of Cadd pump. Tolerated therapy fairly well, although she has been nauseated since this morning. CUSTOMER LIAISON contacted for additional medications. Compazine and Ativan ordered. One liter of normal saline, antiemetics and Neulasta as ordered. She is feeling better after additional medications and fluids. Discharged home ambulatory. 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 Administered Medications Action Date Dose Rate Site Medication Order MAR Action 09/27/2018 1:29 PM REPORTING LEAD 8 mg 300 mL/hr dexamethasone (DECADRON) 8 mg in sodium Given - New chloride 0.9% (NS) 50 mL IVPB Bag 8 mg, Intravenous, 50 mL, Administer over 10 Minutes, ONCE, 1 dose, 09/27/18 at 1330 09/27/2018 2:33 PM REPORTING LEAD 1 mg LORazepam (ATIVAN) injection 0.5-1 mg Given 0.5-1 mg, Intravenous, ONCE, 1 dose, Tue09/27/18 at 1415, PROTECT FROM LIGHT, 09/27/2018 3:31 PM REPORTING LEAD 6 mg Abdominal Tissue pegfilgrastim (NEULASTA) syringe 6 mg Given 6 mg, Subcutaneous, ONCE, 1 dose, Tue09/27/18 at 1330, -- Not for IV Push administration --, 09/27/2018 2:30 PM REPORTING LEAD 10 mg prochlorperazine (COMPAZINE) injection Given 10 mg 10 mg, Intravenous, ONCE, 1 dose, 09/27/18 at 1415, PROTECT FROM LIGHT -- May be given undiluted, or each 5mg may be diluted with 9 mL of NS to facilitate titration., 09/27/2018 1:29 PM REPORTING LEAD 1,000 mL 800 mL/hr sodium chloride 0.9 % infusion Given - New 1,000 mL, 1,000 mL, Intravenous, at 800 Bag mL/hr, ONCE, 1 dose, 09/27/18 at 1330 in this encounter
--- OUTSIDE RECORDS SUMMARY | 2018-12-04 16:16 | XMS REPORT | Encounter Summary ---
Author Author [facility] Organization [facility] Address Unknown Phone Unavailable Care Team Providers Care Marketing Developer Name Role Phone Karyn Anderson MD PCP Samuel Kelly DPM 21 Roe Aleman DO Unavailable Reason for Visit * Reason Comments Heme/Onc Care Encounter Details Care Team Description Date Type Department Kimberly Salgado APRN [address] [address] 10/02/2018 [facility] - OP Treatment [address] [address] Social History Date Tobacco Use [...] * Patient Instructions* Marisela Martins RN - 10/02/2018 4:15 PM PATENT PARALEGAL Call Immediately to report the following: Uncontrolled nausea and/or vomiting, uncontrolled pain, or unusual bleeding. Temperature of 100.4 F or greater and/or any sign/symptom of infection (redness , warmth, tenderness) Painful mouth or difficulty swallowing Red, cracked, or painful hands and/or feet Diarrhea Swelling of arms or legs Rash Important Phone Numbers: OP Cancer Center Main Number (answered 24 hours a day) [phone] Cancer Center Scheduling (appointments) [phone] [id number] Cancer Action (for nutritional supplements) [phone] NT PARALEGAL in this encounter Medications at Time of [...] 0 mg tabletIndications: BY MOUTH AT [facility] ([facility]) BEDTIME DAILY. ON DAYS 1-4 OF EACH CYCLE 05/03/2018 11/28/2018 ondansetron (ZOFRAN) 8 mg Take one 30 tablet 5 tabletIndications: tablet by [facility] ([facility]) mouth every 8 hours as needed (nausea [...]
--- OUTSIDE RECORDS SUMMARY | 2018-12-04 16:16 | XMS REPORT | Encounter Summary ---
Author Author [facility] Organization [facility] Address Unknown Phone Unavailable Care Team Providers Care Roll Mechanic Name Role Phone Karyn Anderson MD PCP Samuel Kelly DPM 21 Roe Aleman DO Unavailable Reason for Visit * Reason Comments Medication Refill Encounter Details Care Team Description Date [place] [address] [address] Rodarte's sarcoma (HCC) 09/29/2018 Refill [facility] - OP Exam [address] [address] Social History Date Tobacco Use [...]
--- OUTSIDE RECORDS SUMMARY | 2018-12-04 16:16 | XMS REPORT | Encounter Summary ---
Author Author [facility] Organization [facility] Address Unknown Phone Unavailable Care Team Providers Care Senior Program Manager Name Role Phone Karyn Anderson MD PCP Samuel Kelly DPM 21 Roe Aleman DO Unavailable Encounter Details Care Team Description Date Type Department Kimberly Salgado APRN [address] [address] 10/02/2018 [facility] - OP Lab [address] [address] Social History Date Tobacco Use [...] Date/Time Associated Diagnosis CBC AND DIFF Routine 10/02/2018 Rodarte's sarcoma (HCC) 2:47 PM REGULATORY SPECIALIST COMPREHENSIVE METABOLIC Routine 10/02/2018 Rodarte's sarcoma (HCC) PANEL 2:47 PM REGULATORY SPECIALIST in this encounter Results * COMPREHENSIVE METABOLIC PANEL (10/02/2018 2:47 PM REGULATORY SPECIALIST) Sodium 138 137 - 147 MMOL/L [facility] Potassium 4.1 3.5 - 5.1 MMOL/L [facility] Chloride 103 98 - 110 MMOL/L [facility] Glucose 123 (H) 70 - 100 MG/DL [facility] Blood Urea Nitrogen 12 7 - 25 MG/DL [facility] Creatinine 0.51 0.4 - 1.00 MG/DL [facility] Calcium 9.6 8.5 - 10.6 MG/DL [facility] Total Protein 6.4 6.0 - 8.0 G/DL [facility] Total Bilirubin 0.6 0.3 - 1.2 MG/DL [facility] Albumin 4.5 3.5 - 5.0 G/DL [facility] Alk Phosphatase 80 25 - 110 U/L [facility] AST (SGOT) 18 7 - 40 U/L [facility] CO2 28 21 - 30 MMOL/L [facility] ALT (SGPT) 22 7 - 56 U/L [facility] [...] City/State/Zipcode Phone Number [facility] [address] [place] [address] * CBC AND DIFF (10/02/2018 2:47 PM REGULATORY SPECIALIST) White Blood Cells 0.3 (LL) 4.5 - 11.0 K/[facility] Comment: JYOTI Critical Result WBC:Called to TIFFANIE Wetzel at: 14:52:57 by: MALENA Read back by: TIFFANIE Wetzel RBC 2.67 (L) 4.0 - 5.0 M/UL [facility] Hemoglobin 8.7 (L) 12.0 - 15.0 GM/DL [facility] Hematocrit 25.2 (L) 36 - 45 % [facility] MCV 94.6 80 - 100 FL [facility] MCH 32.6 26 - 34 PG [facility] MCHC 34.4 32.0 - 36.0 G/DL [facility] RDW 22.5 (H) 11 - 15 % [facility] Platelet Count 51 (L) 150 - 400 K/[facility] MPV 7.8 7 - 11 FL [facility] Specimen Blood Performing Organization Address City/State/Zipcode Phone Number [facility] [address] [address] in this encounter Visit Diagnoses 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
--- OUTSIDE RECORDS SUMMARY | 2018-12-04 16:17 | XMS REPORT | Encounter Summary ---
Author Author [facility] Organization [facility] Address Unknown Phone Unavailable Care Team Providers Care Gas Distribution Plant Operator Name Role Phone Karyn Anderson MD PCP Samuel Kelly DPM 21 Roe Aleman DO Unavailable Encounter Details Care Team Description Date [place] [address] [address] 09/25/2018 [facility] - OP Lab [address] [address] Social History Date Tobacco Use [...] Date/Time Associated Diagnosis CBC AND DIFF Routine 09/25/2018 Rodarte's sarcoma (HCC) 8:44 AM SOLID WASTE DIVISION SUPERVISOR COMPREHENSIVE METABOLIC Routine 09/25/2018 Rodarte's sarcoma (HCC) PANEL 8:44 AM SOLID WASTE DIVISION SUPERVISOR in this encounter Results * COMPREHENSIVE METABOLIC PANEL (09/25/2018 8:44 AM SOLID WASTE DIVISION SUPERVISOR) Sodium 142 137 - 147 MMOL/L [facility] Potassium 3.9 3.5 - 5.1 MMOL/L [facility] Chloride 109 98 - 110 MMOL/L [facility] Glucose 121 (H) 70 - 100 MG/DL [facility] Blood Urea Nitrogen 9 7 - 25 MG/DL [facility] Creatinine 0.60 0.4 - 1.00 MG/DL [facility] Calcium 9.4 8.5 - 10.6 MG/DL [facility] Total Protein 6.3 6.0 - 8.0 G/DL [facility] Total Bilirubin 0.3 0.3 - 1.2 MG/DL [facility] Albumin 4.2 3.5 - 5.0 G/DL [facility] Alk Phosphatase 81 25 - 110 U/L [facility] AST (SGOT) 34 7 - 40 U/L [facility] CO2 28 21 - 30 MMOL/L [facility] ALT (SGPT) 31 7 - 56 U/L [facility] [...] City/State/Zipcode Phone Number [facility] [address] [place] [address] * CBC AND DIFF (09/25/2018 8:44 AM SOLID WASTE DIVISION SUPERVISOR) White Blood Cells 3.8 (L) 4.5 - 11.0 [facility] RBC 3.10 (L) 4.0 - 5.0 M/UL [facility] Hemoglobin 9.9 (L) 12.0 - 15.0 GM/DL [facility] Hematocrit 29.2 (L) 36 - 45 % [facility] MCV 94.1 80 - 100 FL [facility] MCH 31.9 26 - 34 PG [facility] MCHC 33.9 32.0 - 36.0 G/DL [facility] RDW 24.0 (H) 11 - 15 % [facility] Platelet Count 184 150 - 400 K/[facility] MPV 6.8 (L) 7 - 11 FL [facility] Neutrophils 69 41 - 77 % [facility] Lymphocytes 16 (L) 24 - 44 % [facility] Monocytes 13 (H) 4 - 12 % [facility] Eosinophils 1 0 - 5 % [facility] Basophils 1 0 - 2 % [facility] Absolute Neutrophil Count 2.60 1.8 - 7.0 K/[facility] Absolute Lymph Count 0.60 (L) 1.0 - 4.8 K/[facility] Absolute Monocyte Count 0.50 0 - 0.80 K/[facility] Absolute Eosinophil Count 0.00 0 - 0.45 K/UL [facility] Absolute Basophil Count 0.00 0 - 0.20 K/UL [facility] Specimen Blood Performing Organization Address City/State/Zipcode Phone Number [facility] [address] [place] [address] in this encounter Visit Diagnoses 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
--- OUTSIDE RECORDS SUMMARY | 2018-12-04 16:17 | XMS REPORT | Encounter Summary ---
Author Author [facility] Organization [facility] Address Unknown Phone Unavailable Care Team Providers Care Injector Assembler Name Role Phone Karyn Anderson MD PCP Samuel Kelly DPM 21 Roe Aleman DO Unavailable Encounter Details Care Team Description Date [place] [address] [address] 09/18/2018 [facility] - OP Lab [address] [address] Social History Date Tobacco Use [...]
--- OUTSIDE RECORDS SUMMARY | 2018-12-04 16:17 | XMS REPORT | Encounter Summary ---
Author Author [facility] Organization [facility] Address Unknown Phone Unavailable Care Team Providers Care Cargo Vessel Stewardess Name Role Phone Karyn Anderson MD PCP Samuel Kelly DPM 21 Roe Aleman DO Unavailable Encounter Details Care Team Description Date Type Department Mehreen Maharaj 09/25/2018 Documentation [facility] - OP Exam [address] [address] Social History Date Tobacco Use [...] encounter Progress Notes * Mehreen Maharaj - 09/25/2018 9:46 AM MAGAZINE HAND Social Work Note Name: Evelin Torres [facility] #: [id number] PLAN: Assist pt with questions about her medical bills and status of her Medicaid application. INTERVENTIONS: EVIN notified by WALLY Virgen pt requesting to meet with SW re : financial concerns. SW met with pt in treatment and introduced self. Pt states she applied for Medicaid last week with [facility] staff. Pt was informed by this staff, that Medicaid may be able to assist with pt's past medical bills. Pt reports she paid a bill to [facility] of about $400 last month and she received another bill of about $300. [facility] as [facility] was indicated on the most recent bill. SW offered to ask PFA on pt's behalf and follow up with pt on the outcome. Pt is agreeable to this. Pt reports this is her only concern at this time. SW provided pt with SW contact information for any other needs that arise. Pt reports her preferred method of contact is her personal cell, . SW e-mailed [employer] Chase Braxton re: the above information and inquired about pt's Medicaid status. EVIN updated by PFA pt's [facility] bill account has been paid in full. Pt will need to follow up with Medicaid re: pt's status or contact the financial team at [facility] who assisted pt with completing her Medicaid application. SW contacted pt and updated her with this information. Pt verbalized understanding and denies any other needs at this time. SW to continue to follow. eMhreen Maharaj LMSW *[id number] ZINE HAND in this encounter Plan of Treatment Not on fileas of this encounter Visit Diagnoses Not on filein this encounter
--- OUTSIDE RECORDS SUMMARY | 2018-12-04 16:17 | XMS REPORT | Encounter Summary ---
Author Author [facility] Organization [facility] Address Unknown Phone Unavailable Care Team Providers Care Air Drier Name Role Phone Karyn Anderson MD PCP Samuel Kelly DPM 21 Roe Aleman DO Unavailable Encounter Details Care Team Description Date [place] [address] [address] 09/22/2018 Orders Only [facility] - OP Exam [address] [address] Social History Date Tobacco [...]
--- OUTSIDE RECORDS SUMMARY | 2018-12-04 16:17 | XMS REPORT | Encounter Summary ---
Author Author [facility] Organization [facility] Address Unknown Phone Unavailable Care Team Providers Care Forest Fire Fighters Dispatcher Name Role Phone Karyn Anderson MD PCP Samuel Kelly DPM 21 Roe Aleman DO Unavailable Reason for Visit * Reason Comments Chemotherapy Heme/Onc Care * Treatment (Routine) Referred By Contact Referred To Contact Status Reason Specialty Diagnoses / [place] [address] [place] [address] [place] [address] [address] Authorized Hematology Diagnoses Malignant neoplasm of short [...] Description Date [place] [address] [place] [address] [phone] 09/25/2018 [facility] - OP Treatment [address] [address] Social History Date Tobacco Use Types Packs/Day [...] * Patient Instructions* Marisela Martins RN - 09/25/2018 8:55 AM FUR BLOWER OPERATOR Call Immediately to report the following: Uncontrolled nausea and/or vomiting, uncontrolled pain, or unusual bleeding. Temperature of 100.4 F or greater and/or any sign/symptom of infection (redness , warmth, tenderness) Painful mouth or difficulty swallowing Red, cracked, or painful hands and/or feet Diarrhea Swelling of arms or legs Rash Important Phone Numbers: Cancer Center Main Number (answered 24 hours a day) [phone] Cancer Center Scheduling (appointments) [phone] [id number] Cancer Action (for nutritional supplements) [phone] BLOWER OPERATOR in this encounter Medications at Time [...] Progress Notes * Marisela Martins RN - 09/25/2018 8:56 AM FUR BLOWER OPERATOR CHEMO NOTE Verified chemo consent signed and in chart. Verified initiate chemo order in O2 Blood return positive via: Michael BSA and dose double checked (agree with orders as written) with: yes Labs/applicable tests checked: CBC and Comprehensive Metabolic Panel (CMP) Chemo regime: Drug/cycle/day Day 1 VAC Rate verified and armband double checkwith second RN: yes Patient education offered and stated understanding. Denies questions at this time. Labs drawn via Rodriguez. Patient was assessed by MD in clinic today. Labs within normal limits for treatment. Pre meds and Mesna administered as ordered. Chemotherapy administered as ordered and tolerated well. Adriamycin infusing via ambulatory infusion pump to run over 24 hours. Post treatment Mesna administered as ordered. Central line dressing changed per protocol. Discharged home ambulatory. 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 - Give IV push over 2 minutes., 09/25/2018 11:10 AM FUR BLOWER OPERATOR 1,500 mg 325 mL/hr cyclophosphamide (CYTOXAN) 1,500 mg in Given - New sodium chloride 0.9% (NS) 325 mL IVPB Bag 1,500 mg (1 g/m2 1.5 m2 Treatment plan recorded BSA), Intravenous, 325 mL, Administer over 1 Hours, ONCE, 1 dose, Tue09/25/18 at 1045, NURSING: To be administered by Chemotherapy Competency-validated nurse. NOTE: This is a HIGH ALERT Medication. SPECIAL TUBING REQUIRED , 09/25/2018 9:45 AM FUR BLOWER OPERATOR 12 mg 300 mL/hr dexamethasone (DECADRON) 12 mg in sodium Given - New chloride 0.9% (NS) 50 mL IVPB Bag 12 mg, Intravenous, 50 mL, Administer over 10 Minutes, ONCE, 1 dose, Tue09/25/18 at 0915 09/25/2018 11:44 AM FUR BLOWER OPERATOR 56.26 mg 2 mL/hr DOXOrubicin (ADRIAMYCIN) 56.26 mg in Given - New sodium chloride 0.9% (NS) 48 mL IVPB Bag 56.26 mg (rounded from 56.25 mg=37.5 mg/m2 1.5 m2 Treatment plan recorded BSA), Intravenous, 48 mL, Administer over 24 Hours, ONCE, 1 dose, Tue09/25/18 at 1000, Infuse over 24 hours via ambulatory pump. PROTECT FROM LIGHT -- CENTRAL LINE REQUIRED NURSING: To be administered by Chemotherapy Competency-validated nurse. NOTE: This is a HIGH ALERT Medication., 09/25/2018 10:06 AM FUR BLOWER OPERATOR 540 mg 336.9 mL/hr mesna (MESNEX) 540 mg in dextrose 5% Given - New (D5W) 505.4 mL IVPB Bag 540 mg (360 mg/m2 1.5 m2 Treatment plan recorded BSA), Intravenous, 505.4 mL, Administer over 90 Minutes, ONCE, 1 dose, Tue09/25/18 at 0915, Pre-Hydration, 09/25/2018 12:26 PM FUR BLOWER OPERATOR 540 mg 336.9 mL/hr mesna (MESNEX) 540 mg in dextrose 5% Given - New (D5W) 505.4 mL IVPB Bag 540 mg (360 mg/m2 1.5 m2 Treatment plan recorded BSA), Intravenous, 505.4 mL, Administer over 90 Minutes, ONCE, 1 dose, Tue09/25/18 at 1145, Post-Hydration, 09/25/2018 9:55 AM FUR BLOWER OPERATOR 16 mg ondansetron (ZOFRAN) 16 mg in sodium Given - New chloride 0.9% (NS) IVPB Bag 16 mg, Intravenous, 58 mL, Administer over 15 Minutes, ONCE, 1 dose, Tue09/25/18 at 0915 09/25/2018 10:57 AM FUR BLOWER OPERATOR 2 mg 300 mL/hr vincristine (ONCOVIN) 2 mg in sodium Given - New chloride 0.9% (NS) 50 mL IVPB Bag 2 mg, Intravenous, 50 mL, Administer over 10 Minutes, ONCE, 1 dose, Tue09/25/18 at 0945, NURSING: To be administered by Chemotherapy Competency-validated nurse. NOTE: This is a HIGH ALERT Medication. SPECIAL TUBING REQUIRED , in this encounter
--- OUTSIDE RECORDS SUMMARY | 2018-12-04 16:17 | XMS REPORT | Encounter Summary ---
Author Author [facility] Organization [facility] Address Unknown Phone Unavailable Care Team Providers Care Manager Presentation Name Role Phone Karyn Anderson MD PCP Samuel Kelly DPM 21 Roe Aleman DO Unavailable Reason for Visit * Reason Comments Heme/Onc Care Encounter Details Care Team Description Date [place] [address] [address] Genital ulcer, female; Rodarte's sarcoma (HCC) 09/25/2018 Office Visit [facility] - OP Exam [address] [address] Social History Date Tobacco Use [...] Vital Signs Time Taken Vital Sign Reading 09/25/2018 8:55 AM LIGHT OUT EXAMINER Blood Pressure 112/64 09/25/2018 8:55 AM LIGHT OUT EXAMINER Pulse 83 09/25/2018 8:55 AM LIGHT OUT EXAMINER Temperature 36.6 C (97.8 F) 09/25/2018 8:55 AM LIGHT OUT EXAMINER Respiratory Rate 18 09/25/2018 8:55 AM LIGHT OUT EXAMINER Oxygen Saturation 100% - Inhaled Oxygen - Concentration 09/25/2018 8:55 AM LIGHT OUT EXAMINER Weight 53.3 kg (117 lb 6.4 oz) 09/25/2018 8:55 AM LIGHT OUT EXAMINER Height 165.1 cm (5' 5") 09/25/2018 8:55 AM LIGHT OUT EXAMINER Body Mass Index 19.54 in this encounter Functional Status Date of [...] Progress Notes * Isreal Adams MD - 09/25/2018 9:00 AM LIGHT OUT EXAMINER Name: Evelin Mancilla : 1995 AGE: 22 y.o. DATE OF SERVICE: 09/25/2018 Subjective: Reason for Visit: Heme/Onc Care Evelin [...] revealing a poorly differentiated neoplasm, [facility] consultation called it a small round [...] is very high). She went to an appellate law clerk who concurred with the decision to proceed with the surgical resection and chemotherapy for the goal of attacking the disease lianna. She is not very spiritism, and was okay with aborting the , [...] but cytopenias have limited that. Admitted to [facility] after 5th cycle, 3rd VAC, due to [...] the holidays, these have resolved for now. Review of Systems Constitutional: Negative. Negative for [...] at bedtime as needed for Sleep. Vitals: 09/25/18 0855 BP: 112/64 Pulse: 83 Resp: 18 Temp: 36.6 C (97.8 F) TempSrc: Axillary SpO2: 100% Weight: 53.3 kg (117 lb 6.4 oz) Height: 165.1 cm (65") Body mass index is 19.54 kg/m. Pain Score: Zero Pain Addressed: N/A [...] rash has completely resolved) noted. No pallor. Psychiatric: She has a normal mood and affect. Her behavior is normal. Judgment and thought content normal. CBC w diff Lab Results Component Value Date/Time WBC 3.8 (L) 09/25/2018 08:44 AM RBC 3.10 (L) 09/25/2018 08:44 AM HGB 9.9 (L) 09/25/2018 08:44 AM HCT 29.2 (L) 09/25/2018 08:44 AM MCV 94.1 09/25/2018 08:44 AM MCH 31.9 09/25/2018 08:44 AM MCHC 33.9 09/25/2018 08:44 AM RDW 24.0 (H) 09/25/2018 08:44 AM PLTCT 184 09/25/2018 08:44 AM MPV 6.8 (L) 09/25/2018 08:44 AM Lab Results Component Value Date/Time NEUT 69 09/25/2018 08:44 AM ANC 2.60 09/25/2018 08:44 AM LYMA 16 (L) 09/25/2018 08:44 AM ALC 0.60 (L) 09/25/2018 08:44 AM JADE 13 (H) 09/25/2018 08:44 AM AMC 0.50 09/25/2018 08:44 AM EOSA 1 09/25/2018 08:44 AM AEC 0.00 09/25/2018 08:44 AM BASA 1 09/25/2018 08:44 AM ABC 0.00 09/25/2018 08:44 AM cmp pending from today Assessment and Plan: Patient Active Problem List Diagnosis Date Noted Genital ulcer, female 07/24/2018 Overview Note: Likely due to myelosuppression associated with chemo Now on proph acyclovir BID throughout chemo - the few extra weeks around the holidays has resolved this for now, but likely to recur once we get chemo going again History of complete ray amputation of first [...] revealing a poorly differentiated neoplasm, [facility] consultation called it a small round [...] is very high). She went to an appellate law clerk who concurred with the decision to proceed with the surgical resection and chemotherapy for the goal of attacking the disease lianna. She is not very spiritism, and was okay with aborting the , [...] but cytopenias have limited that. Admitted to [facility] after 5th cycle, 3rd VAC, due to [...] the holidays, these have resolved for now. A/P: 22 yo healthy F c CIC-rearranged [...] cystitis, cardiotoxicity and secondary cancers, amongst others. Resume chemo this week - cycle #9. Plan to repeat scans after cycle #10. Dose-reduced strategy is to allow her to continue pushing forward with chemo. Ordered levaquin to have at home if she starts running fevers. Acyclovir for proph against more genital ulcer outbreaks. Discussed with the patient and all questions fully answered. She will call me if any problems arise. Try to push forward with cycle #10 in two weeks, knowing full well that we may have to go in 3 weeks due to cytopenias. 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
--- OUTSIDE RECORDS SUMMARY | 2018-12-04 16:18 | XMS REPORT | Encounter Summary ---
Author Author [facility] Organization [facility] Address Unknown Phone Unavailable Care Team Providers Care Double Needle Stitcher Name Role Phone Karyn Anderson MD PCP Samuel Kelly DPM 21 Roe Aleman DO Unavailable Reason for Visit * Reason Comments Transfusion Encounter Details Care Team Description [place] [address] [address] Transfusion 09/07/2018 Telephone [facility] - OP Exam [address] [address] Social History Date Tobacco Use [...] Telephone Encounter - Flori Barone RN - 09/07/2018 11:09 AM ASSISTANT CITY ATTORNEY Received email from patient's mother that stated patient likely needs transfusion. Clal to patient who states tomorrow is preferred day. Reviewed with Dr. Adams who states patient hgb was 6.7 at outside hospital last night. Call to patient to discuss transfusion tomorrow. Patient will arrive at [facility] at 1:30 for a 2pm appointment. Patient verbalizes understanding. Ordered faxed to [facility]. Outside records requested. 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
--- OUTSIDE RECORDS SUMMARY | 2018-12-04 16:18 | XMS REPORT | Encounter Summary ---
Author Author [facility] Organization [facility] Address Unknown Phone Unavailable Care Team Providers Care Housing Director Name Role Phone Karyn Anderson MD PCP Samuel Kelly DPM 21 Roe Aleman DO Unavailable Reason for Visit * Reason Comments Heme/Onc Care Encounter Details Care Team Description Date [place] [address] [address] 09/18/2018 [facility] - OP Treatment [address] [address] Social History Date Tobacco Use [...] * Patient Instructions* Marisela Martins RN - 09/18/2018 10:36 AM ENVIRONMENTAL DIRECTOR Call Immediately to report the following: Uncontrolled nausea and/or vomiting, uncontrolled pain, or unusual bleeding. Temperature of 100.4 F or greater and/or any sign/symptom of infection (redness , warmth, tenderness) Painful mouth or difficulty swallowing Red, cracked, or painful hands and/or feet Diarrhea Swelling of arms or legs Rash Important Phone Numbers: OP Cancer Center Main Number (answered 24 hours a day) [phone] Cancer Center Scheduling (appointments) [phone] [id number] [facility] (for nutritional supplements) [phone] RONMENTAL DIRECTOR in this encounter Medications at Time [...] 30 tablet 5 tabletIndications: tablet by [facility]) mouth every 8 [...] Date/Time Associated Diagnosis CBC AND DIFF Routine 09/18/2018 Rodarte's sarcoma ([facility]) 9:33 AM ENVIRONMENTAL DIRECTOR COMPREHENSIVE METABOLIC Routine 09/18/2018 [facility]arte's sarcoma ([facility]) PANEL 9:33 AM ENVIRONMENTAL DIRECTOR in this encounter Results * CBC AND DIFF (09/18/2018 9:33 AM ENVIRONMENTAL DIRECTOR) White Blood Cells 5.8 4.5 - 11.0 K/UL [facility] RBC 3.19 (L) 4.0 - 5.0 M/UL [facility] Hemoglobin 10.0 (L) 12.0 - 15.0 GM/DL [facility] Hematocrit 29.3 (L) 36 - 45 % [facility] MCV 91.7 80 - 100 FL [facility] MCH 31.2 26 - 34 PG [facility] MCHC 34.0 32.0 - 36.0 G/DL [facility] RDW 19.1 (H) 11 - 15 % [facility] Platelet Count 154 150 - 400 K/UL [facility] MPV 7.0 7 - 11 FL [facility] Neutrophils 80 (H) 41 - 77 % [facility] Lymphocytes 7 (L) 24 - 44 % [facility] Monocytes 13 (H) 4 - 12 % [facility] Eosinophils 0 0 - 5 % [facility] Basophils 0 0 - 2 % [facility] Absolute Neutrophil Count 4.60 1.8 - 7.0 K/UL [facility] Absolute Lymph Count 0.40 (L) 1.0 - 4.8 K/UL [facility] Absolute Monocyte Count 0.70 0 - 0.80 K/UL [facility] Absolute Eosinophil Count 0.00 0 - 0.45 K/UL [facility] Absolute Basophil Count 0.00 0 - 0.20 K/UL [facility] Specimen Blood Performing Organization Address City/State/Zipcode Phone Number [facility] [address] [address] * COMPREHENSIVE METABOLIC PANEL (09/18/2018 9:33 AM ENVIRONMENTAL DIRECTOR) Sodium 138 137 - 147 MMOL/L [facility] Potassium 4.1 3.5 - 5.1 MMOL/L [facility] Chloride 104 98 - 110 MMOL/L [facility] Glucose 93 70 - 100 MG/DL [facility] Blood Urea Nitrogen 8 7 - 25 MG/DL [facility] Creatinine 0.51 0.4 - 1.00 MG/DL [facility] Calcium 9.2 8.5 - 10.6 MG/DL [facility] Total Protein 6.4 6.0 - 8.0 G/DL [facility] Total Bilirubin 0.4 0.3 - 1.2 MG/DL [facility] Albumin 4.4 3.5 - 5.0 G/DL [facility] Alk Phosphatase 62 25 - 110 U/L [facility] AST (SGOT) 24 7 - 40 U/L [facility] CO2 30 21 - 30 MMOL/L [facility] ALT (SGPT) 25 7 - 56 U/L [facility] Anion Gap 4 3 - 12 [facility] eGFR Non >60 >60 mL/min [facility] Comment: The eGFR is not validated for use in drug dosing adjustments.Continue to use estimated creatinine clearance per dosing reference text.Please contact the Clinical Pharmacist for questions. eGFR >60 >60 mL/min [facility] Comment: The eGFR is not validated for use in drug dosing adjustments.Continue to use estimated creatinine clearance per dosing reference text.Please contact the Clinical Pharmacist for questions. 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
--- OUTSIDE RECORDS SUMMARY | 2018-12-04 16:18 | XMS REPORT | Encounter Summary ---
Author Author [facility] Organization [facility] Address Unknown Phone Unavailable Care Team Providers Care Public Address Systems Mechanic Name Role Phone Karyn Anderson MD PCP Samuel Kelly DPM 21 Roe Aleman DO Unavailable Reason for Visit * Reason Comments Heme/Onc Care Encounter Details Care Team Description Date [place] [address] [address] 09/11/2018 [facility] - OP Treatment [address] [address] Social History Date Tobacco [...] * Patient Instructions* Marisela Martins RN - 09/11/2018 9:52 AM SPORTS MEDICINE SPECIALIST Call Immediately to report the following: Uncontrolled nausea and/or vomiting, uncontrolled pain, or unusual bleeding. Temperature of 100.4 F or greater and/or any sign/symptom of infection (redness , warmth, tenderness) Painful mouth or difficulty swallowing Red, cracked, or painful hands and/or feet Diarrhea Swelling of arms or legs Rash Important Phone Numbers: OP Cancer Center Main Number (answered 24 hours a day) [phone] Cancer Center Scheduling (appointments) [phone] [id number] [facility] (for nutritional supplements) [phone] TS MEDICINE SPECIALIST in this encounter Medications at Time [...] 0 mg tabletIndications: BY MOUTH AT [facility] ([facility]) BEDTIME DAILY. ON DAYS 1-4 OF EACH CYCLE 05/03/2018 11/28/2018 ondansetron (ZOFRAN) 8 mg Take one 30 tablet 5 tabletIndications: tablet by [facility] ([facility]) mouth every 8 hours as [...] Progress Notes * Marisela Martins RN - 09/11/2018 9:52 AM SPORTS MEDICINE SPECIALIST Patient here for labs and central line dressing change. Voices no complaints today. Discharged home ambulatory. TS MEDICINE SPECIALIST in this encounter Plan of Treatment Not on fileas of this encounter Visit Diagnoses Not on filein this encounter
--- OUTSIDE RECORDS SUMMARY | 2018-12-04 16:18 | XMS REPORT | Encounter Summary ---
Author Author [facility] Organization [facility] Address Unknown Phone Unavailable Care Team Providers Care Catalyst Plant Supervisor Name Role Phone Karyn Anderson MD PCP Samuel Kelly DPM 21 Roe Aleman DO Unavailable Encounter Details Care Team Description Date [place] [address] [address] 09/11/2018 [facility] - OP Lab [address] [address] Social History Date Tobacco Use [...] Date/Time Associated Diagnosis CBC AND DIFF Routine 09/11/2018 Rodarte's sarcoma (HCC) 9:06 AM COMMUNITY HEALTH SPECIALIST COMPREHENSIVE METABOLIC Routine 09/11/2018 Rodarte's sarcoma (HCC) PANEL 9:06 AM COMMUNITY HEALTH SPECIALIST in this encounter Results * COMPREHENSIVE METABOLIC PANEL (09/11/2018 9:06 AM COMMUNITY HEALTH SPECIALIST) Sodium 143 137 - 147 MMOL/L [facility] Potassium 4.0 3.5 - 5.1 MMOL/L [facility] Chloride 107 98 - 110 MMOL/L [facility] Glucose 108 (H) 70 - 100 MG/DL [facility] Blood Urea Nitrogen 6 (L) 7 - 25 MG/DL [facility] Creatinine 0.53 0.4 - 1.00 MG/DL [facility] Calcium 9.3 8.5 - 10.6 MG/DL [facility] Total Protein 5.9 (L) 6.0 - 8.0 G/DL [facility] Total Bilirubin 0.3 0.3 - 1.2 MG/DL [facility] Albumin 4.1 3.5 - 5.0 G/DL [facility] [...] Address City/State/Zipcode Phone Number [facility] [address] [place] [address] * CBC AND DIFF (09/11/2018 9:06 AM COMMUNITY HEALTH SPECIALIST) White Blood Cells 24.7 (H) 4.5 - 11.0 K/UL [facility] RBC 3.21 (L) 4.0 - 5.0 M/UL [facility] Hemoglobin 9.7 (L) 12.0 - 15.0 GM/DL [facility] Hematocrit 29.0 (L) 36 - 45 % [facility] MCV 90.5 80 - 100 FL [facility] MCH 30.3 26 - 34 PG [facility] [place] MCHC 33.5 32.0 - 36.0 G/DL [facility] RDW 16.3 (H) 11 - 15 % [facility] Platelet Count 54 (L) 150 - 400 K/UL [facility] MPV 8.2 7 - 11 FL [facility] Segmented Neutrophils 58 41 - 77 % [facility] Bands 20 (H) 0 - 10 % [facility] Lymphocytes 6 (L) 24 - 44 % [facility] [place] Monocytes 9 4 - 12 % [facility] [place] Myelocyte 7 % [facility] ANISO PRESENT [facility] HYPO PRESENT [facility] POLY PRESENT [facility] Teardrop PRESENT [facility] [place] Platelet Estimate MOD DEC [facility] Absolute Neutrophil Count 19.27 (H) 1.8 - 7.0 K/UL [facility] Specimen Blood Performing Organization Address City/State/Zipcode Phone Number [facility] [address] [address] in this encounter Visit Diagnoses Diagnosis Rodatre'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
--- OUTSIDE RECORDS SUMMARY | 2018-12-04 16:19 | XMS REPORT | Continuity of Care Document ---
Author Author [facility] Organization [facility] Address Unknown Phone Unavailable Allergies Active Description Code Type Severity Reaction Onset Reported/Identified Relationship to Patient Clinical Status Yes PENICILLIN G POTASSIUM PENICILLIN G POTASSI SEVERE Yes PENICILLIN G POTASSIUM SEVERE DERMATOLOGICAL - CARO Yes No Allergy Information Available [id number] Drug Allergy Unknown N/A 2014 Medications Medication Packaging Start Date Stop Date Route Dosage Sig NORMAL SALINE 1000CC IV BAG INJ 0.9 % (NS 1000CC IV BAG) ml 12/03/2016 12/03/2016 ONCE&1433 KETOROLAC VIAL INJ 30 MG/CC (TORADOL VIAL) MG 12/03/2016 12/03/2016 ONCE&1510 LEVOFLOXACIN TAB 500 MG (LEVAQUIN) MG 07/06/2018 07/06/2018 ONCE&2210 GI COCKTAIL SINGLE DOSE LIQ (GRASSHOPPER) ML 09/06/2018 09/06/2018 ONCE&1919 FENTANYL INJ 100 MCG/2CC VIAL MCG 09/06/2018 09/06/2018 ONCE&1920 PANTOPRAZOLE VIAL INJ 40 MG (PROTONIX IV) MG 09/06/2018 09/06/2018 ONCE&1953 Problems Date Dx Coded Attending Type Code Diagnosis Diagnosed By 08/06/2015 MONIKA ALANIS, LUCRETIA Melgar Ot S46.811A 08/06/2015 MONIKA ALANIS, LUCRETIA Melgar Ot X58.XXXA 08/06/2015 MONIKA ALANIS, LUCRETIA Melgar Ot Y99.8 08/12/2015 MONIKA ALANIS, LUCRETIA Melgar Ot S46.811A 08/12/2015 MONIKA ALANIS, LUCRETIA Melgar Ot X58.XXXA 08/12/2015 MONIKA ALANIS, LUCRETIA Melgar Ot Y99.8 08/12/2015 MONIKA ALANIS, LUCRETIA Melgar Ot S46.811A 08/12/2015 MONIKA ALANIS, LUCRETIA Melgar Ot X58.XXXA 08/12/2015 MONIKA ALANIS, LUCRETIA Melgar Ot Y99.8 08/12/2015 MONIKA ALANIS, LUCRETIA P Ot S46.811A 08/12/2015 MONIKA ALANIS, LUCRETIA P Ot X58.XXXA 08/12/2015 MONIKA ALANIS, LUCRETIA P Ot Y99.8 08/12/2015 MONIKA ALANIS, LUCRETIA P Ot S46.811A 08/12/2015 MONIKA ALANIS, LUCRETIA P Ot X58.XXXA 08/12/2015 MONIKA ALANIS, LUCRETIA P Ot Y99.8 08/12/2015 MONIKA ALANIS, LUCREITA P Ot S46.811A 08/12/2015 MONIKA ALANIS, LUCRETIA P Ot X58.XXXA 08/12/2015 MONIKA ALANIS, LUCRETIA P Ot Y99.8 08/21/2015 MONIKA ALANIS, LUCRETIA P Ot S46.811A 08/21/2015 MONIKA ALANIS, LUCRETIA P Ot X58.XXXA 08/21/2015 MONIKA ALANIS, LUCRETIA P Ot Y99.8 12/03/2016 Rodolfo Graf 276.51 DEHYDRATION 12/03/2016 Rodolfo Graf 780.2 SYNCOPE AND COLLAPSE 12/03/2016 Rodolfo Graf 780.60 FEVER, UNSPECIFIED 12/03/2016 Rodolfo Graf 780.79 OTHER MALAISE AND FATIGUE 12/03/2016 Rodolfo Graf E86.0 DEHYDRATION 12/03/2016 Rodolfo Graf R50.9 FEVER, UNSPECIFIED 12/03/2016 Rodolfo Graf R53.83 OTHER FATIGUE 12/03/2016 Rodolfo Graf R55 SYNCOPE AND COLLAPSE 02/03/2017 Lola Bland 924.10 CONTUSION OF LOWER LEG 02/03/2017 Lola Bland S80.11XA CONTUSION OF RIGHT LOWER LEG, INITIAL ENCOUNTER 12/05/2017 MONIKA ALANIS, LUCRETIA Melgar Ot S46.811A STRAIN OF MUSC/FASC/TEND AT LDR/UP ARM 12/05/2017 MONIKA ALANIS, LUCRETIA Melgar Ot X58.XXXA EXPOSURE TO OTHER SPECIFIED FACTORS, INI 12/05/2017 MONIKA LAANIS, LUCRETIA Melgar Ot Y99.8 OTHER EXTERNAL CAUSE STATUS 12/06/2017 MONIKA ALANIS, LUCRETIA Melgar Ot R22.42 LOCALIZED SWELLING, MASS AND LUMP, LEFT 12/06/2017 LUCRETIA FRANK MD Ot S80.01XA CONTUSION OF RIGHT KNEE, INITIAL ENCOUNT 12/06/2017 LUCRETIA FRANK MD Ot R22.42 LOCALIZED SWELLING, MASS AND LUMP, LEFT 12/06/2017 LUCRETIA FRANK MD, Ot S80.01XA CONTUSION OF RIGHT KNEE, INITIAL ENCOUNT 12/22/2017 LUCRETIA FRANK MD Ot R22.42 LOCALIZED SWELLING, MASS AND LUMP, LEFT 12/22/2017 LUCRETIA FRANK MD, Ot S80.01XA CONTUSION OF RIGHT KNEE, INITIAL ENCOUNT 02/28/2018 LUCRETIA FRANK MD, Ot R22.42 LOCALIZED SWELLING, MASS AND LUMP, LEFT 02/28/2018 LUCRETIA FRANK MD, Ot S80.01XA CONTUSION OF RIGHT KNEE, INITIAL ENCOUNT 03/30/2018 LUCRETIA FRANK MD, Ot R22.42 LOCALIZED SWELLING, MASS AND LUMP, LEFT 03/30/2018 LUCRETIA FRANK MD Ot S80.01XA CONTUSION OF RIGHT KNEE, INITIAL ENCOUNT 03/30/2018 LUCRETIA FRANK MD Ot R22.42 LOCALIZED SWELLING, MASS AND LUMP, LEFT 03/30/2018 LUCRETIA FRANK MD Ot S80.01XA CONTUSION OF RIGHT KNEE, INITIAL ENCOUNT 07/06/2018 Tyree Oswald W 780.61 FEVER PRESENTING WITH CONDITIONS CLASSIFIED ELSEWHERE 07/06/2018 Tyree Oswald W R50.81 FEVER PRESENTING WITH CONDITIONS CLASSIFIED ELSEWHERE 07/06/2018 Tyree Oswald W 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, UNSPECIFIED 07/06/2018 Tyree Oswald A 780.60 FEVER, UNSPECIFIED 07/06/2018 Tyree Oswald W 780.61 FEVER PRESENTING WITH CONDITIONS CLASSIFIED ELSEWHERE 07/06/2018 Tryee Oswald W 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, UNSP 07/06/2018 Tyree Oswald W R50.81 FEVER PRESENTING WITH CONDITIONS CLASSIFIED ELSEWHERE 07/06/2018 Tyree Oswald A R50.9 FEVER, UNSPECIFIED 09/06/2018 Lowell Ashley W 170.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 09/06/2018 Lowell Ashley 535.00 ACUTE GASTRITIS, WITHOUT MENTION OF HEMORRHAGE 09/06/2018 Lowell Ashley 789.06 ABDOMINAL PAIN, EPIGASTRIC 09/06/2018 Lowell Ashley 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 Results Test Result Range Thyroid Stimulating Hormone - 12/03/16 13:50 TSH 0.62 mIU/mL 0.32-5.00 EKG - 12/03/16 13:50 EKG Complete Influenza - 12/03/16 13:53 Influenza NEGATIVE FOR A and B 0.00-0.00 Heteroph Ab Ser Ql LA - 10/11/17 17:29 [place]OS[place]OT NEGATIVE NORMAL: NEGATIVE Comprehensive Metabolic Panel - 04/10/18 10:20 Albumin 4.3 g/dL 3.6-5.1 ALP 58 U/L 35-130 ALT 9 U/L 6-45 Anion Gap 15 6-14 AST 18 U/L 2-40 BUN 11 mg/dL 5-25 Calcium 9.0 mg/dL 8.3-10.4 Chloride 111 mmol/L 95-114 CO2 19 mEq/L 22-33 Creat 0.75 mg/dL 0.50-1.50 eGFR 97 mL/min/1.73m2 >59 Globulin 2.1 g/dL 2.3-3.5 Glucose 68 mg/dL 70-110 Osmo 289 280-295 Potassium 3.9 mmol/L 3.5-5.3 Sodium 141 mmol/L 134-148 TBil 0.7 mg/dL 0.2-1.2 TP 6.4 g/dL 6.0-8.3 Beta HCG - 04/18/18 15:48 Beta HCG 90740 Result Verified by Repeat Analysis mIU/mL 5-25 Comprehensive Metabolic Panel - 09/06/18 19:19 Albumin 4.3 g/dL 3.6-5.1 ALP 60 U/L 35-130 ALT 40 U/L 6-45 Anion Gap 15 6-14 AST 21 U/L 2-40 BUN 19 mg/dL 5-25 Calcium 9.2 mg/dL 8.3-10.4 Chloride 102 mmol/L 95-114 CO2 25 mEq/L 22-33 Creat 0.59 mg/dL 0.50-1.50 eGFR 128 mL/min/1.73m2 >59 Globulin 2.0 g/dL 2.3-3.5 Glucose 115 mg/dL 70-110 Osmo 288 280-295 Potassium 3.5 mmol/L 3.5-5.3 Sodium 138 mmol/L 134-148 TBil 0.5 mg/dL 0.2-1.2 TP 6.3 g/dL 6.0-8.3 Complete blood count (CBC) with automated white blood cell (WBC) differential - 10/15/18 12:45 Blood leukocytes automated count (number/volume) 23.8 10*3/uL 4.3-11.0 Blood erythrocytes automated count (number/volume) 2.35 10*6/uL 4.35-5.85 Venous blood hemoglobin measurement (mass/volume) 7.8 g/dL 11.5-16.0 Blood hematocrit (volume fraction) 23 % 35-52 Automated erythrocyte mean corpuscular volume 98 [foz_us] 80-99 Automated erythrocyte mean corpuscular hemoglobin (mass per erythrocyte) 33 pg 25-34 Automated erythrocyte mean corpuscular hemoglobin concentration measurement ( mass/volume) 34 g/dL 32-36 Automated erythrocyte distribution width ratio 18.6 % 10.0-14.5 Automated blood platelet count (count/volume) 162 10*3/uL 130-400 Automated blood platelet mean volume measurement 9.6 [foz_us] 7.4-10.4 Automated blood neutrophils/100 leukocytes 98 % 42-75 Automated blood lymphocytes/100 leukocytes 2 % 12-44 Blood monocytes/100 leukocytes 0 % 0-12 Automated blood eosinophils/100 leukocytes 0 % 0-10 Automated blood basophils/100 leukocytes 0 % 0-10 Blood neutrophils automated count (number/volume) 23.4 10*3 1.8-7.8 Blood lymphocytes automated count (number/volume) 0.4 10*3 1.0-4.0 Blood monocytes automated count (number/volume) 0.0 10*3 0.0-1.0 Automated eosinophil count 0.0 10*3/uL 0.0-0.3 Automated blood basophil count (count/volume) 0.0 10*3/uL 0.0-0.1 Comprehensive metabolic panel - 10/15/18 12:45 Serum or plasma sodium measurement (moles/volume) 138 mmol/L 135-145 Serum or plasma potassium measurement (moles/volume) 3.3 mmol/L 3.6-5.0 Serum or plasma chloride measurement (moles/volume) 103 mmol/L 98-107 Carbon dioxide 23 mmol/L 21-32 Serum or plasma anion gap determination (moles/volume) 12 mmol/L 5-14 Serum or plasma urea nitrogen measurement (mass/volume) 14 mg/dL 7-18 Serum or plasma creatinine measurement (mass/volume) 0.70 mg/dL 0.60-1.30 Serum or plasma urea nitrogen/creatinine mass ratio 20 NRG Serum or plasma creatinine measurement with calculation of estimated glomerular filtration rate > NRG Serum or plasma glucose measurement (mass/volume) 113 mg/dL 70-105 Serum or plasma calcium measurement (mass/volume) 8.8 mg/dL 8.5-10.1 Serum or plasma total bilirubin measurement (mass/volume) 0.6 mg/dL 0.1-1.0 Serum or plasma alkaline phosphatase measurement (enzymatic activity/volume) 67 U/L 40-136 Serum or plasma aspartate aminotransferase measurement (enzymatic activity/ volume) 64 U/L 5-34 Serum or plasma alanine aminotransferase measurement (enzymatic activity/volume ) 71 U/L 0-55 Serum or plasma protein measurement (mass/volume) 6.2 g/dL 6.4-8.2 Serum or plasma albumin measurement (mass/volume) 4.2 g/dL 3.2-4.5 CALCIUM CORRECTED 8.6 mg/dL 8.5-10.1 Blood manual differential performed detection - 10/15/18 12:45 Manual blood segmented neutrophils/100 leukocytes 97 % NRG Blood band neutrophils/100 leukocytes 2 % NRG Manual blood lymphocytes/100 leukocytes 1 % NRG Blood erythrocyte morphology finding identification NORMAL NRG Blood toxic granules detection by light microscopy 3+ NRG Blood hypersegmented neutrophils detection by light microscopy MODERATE NRG Blood lactic acid measurement (moles/volume) - 10/15/18 13:11 Blood lactic acid measurement (moles/volume) 1.66 mmol/L 0.50-2.00 Bacterial blood culture - 10/15/18 13:11 Bacterial blood culture NG NRG Complete urinalysis with reflex to culture - 10/15/18 13:46 Urine color determination YELLOW NRG Urine clarity determination CLEAR NRG Urine pH measurement by test strip 5 5-9 Specific gravity of urine by test strip 1.025 1.016- 1.022 Urine protein assay by test strip, semi-quantitative 2+ NEGATIVE Urine glucose detection by automated test strip NEGATIVE NEGATIVE Erythrocytes detection in urine sediment by light microscopy 1+ NEGATIVE Urine ketones detection by automated test strip NEGATIVE NEGATIVE Urine nitrite detection by test strip NEGATIVE NEGATIVE Urine total bilirubin detection by test strip NEGATIVE NEGATIVE Urine urobilinogen measurement by automated test strip (mass/volume) NORMAL NORMAL Urine leukocyte esterase detection by dipstick 1+ NEGATIVE Automated urine sediment erythrocyte count by microscopy (number/high power field) NONE NRG Automated urine sediment leukocyte count by microscopy (number/high power field ) [HPF] NRG Bacteria detection in urine sediment by light microscopy MODERATE NRG Squamous epithelial cells detection in urine sediment by light microscopy 2-5 NRG Crystals detection in urine sediment by light microscopy NONE NRG Casts detection in urine sediment by light microscopy NONE NRG Mucus detection in urine sediment by light microscopy LARGE NRG Complete urinalysis with reflex to culture YES NRG Bacterial urine culture - 10/15/18 13:46 Bacterial urine culture [id number] NRG COLONY COUNT >100,000/ML NRG FREE TEXT ENTRY 2 SEE REPORT NRG Bacterial blood culture - 10/15/18 14:00 Bacterial blood culture NG NRG Encounters ACCT No. Visit Date/Time Discharge Status Pt. Type Provider Facility Loc./Unit Complaint [id number] 10/15/2018 12:36:00 10/15/2018 15:04:00 DIS Emergency LOWELL ASHLEY APRN [facility] ER PASSED OUT [id number] 12/05/2017 14:58:00 12/05/2017 23:59:59 CLS Outpatient MONIKA ALANIS, LUCRETIA Melgar [facility] RAD FOOT PAIN,LEFT [id number] 08/05/2015 08:05:00 08/05/2015 23:59:59 CLS Outpatient MONIKA ALANIS, LUCRETIA Melgar [facility] RAD RT SHOULDER SLAP TEAR [id number] 10/11/2017 08:56:00 10/11/2017 08:56:00 DIS Outpatient EDER CAAL [id number] 10/09/2017 17:41:00 10/09/2017 19:15:00 DIS Emergency ROSEANN CLAUDIO [id number] 10/11/2017 17:51:22 Document Registration [id number] 09/06/2018 18:53:00 09/06/2018 20:04:00 [id number] 07/06/2018 21:10:00 07/06/2018 22:25:00 DIS Outpatient Darek [facility] ER [id number] 04/18/2018 15:38:00 04/18/2018 23:59:00 DIS Outpatient Henry Triplett [id number] 04/10/2018 10:17:00 04/10/2018 23:59:00 DIS Outpatient Karyn Anderson [id number] 02/03/2017 20:10:00 02/03/2017 21:16:00 DIS Outpatient Lola Bland [facility] ER [id number] 12/03/2016 12:44:00 12/03/2016 15:55:00 DIS Outpatient [facility] [place] [id number] 12/03/2016 14:33:07 Document Registration [id number] 02/10/2018 09:43:58 02/10/2018 23:59:59 CLS Outpatient
[2018-12-04] MEDS ORDERED: LEVO500T80 (16:26)
[2018-12-04] MEDS ORDERED: LORA10TA7 PO (16:26)
[2018-12-04] MEDS ORDERED: ONDA8TAB12 (16:26)
[2018-12-04] MEDS ORDERED: OXYC-471 PO (16:26)
[2018-12-04] MEDS ORDERED: IBUP-2185 PO (16:26)
[2018-12-04] MEDS ORDERED: LORA0.5T PO (16:26)
[2018-12-04] MEDS ORDERED: ACYC800T (16:26)
[2018-12-04] MEDS ORDERED: DOXY100C2 PO (16:26)
[2018-12-04] MEDS ORDERED: TRAZ-189 PO (16:26)
[2018-12-04] MEDS ORDERED: PROC10TA10 (16:26)
[2018-12-04] MEDS ORDERED: LIDO15SO2 (16:26)
[2018-12-04] MEDS ORDERED: PANT40TA3 (16:26)
[2018-12-04] MEDS ORDERED: ACET325T49 PO (16:26)
[2018-12-04] MEDS ORDERED: OLAN10TA19 (16:26)
[2018-12-04] MEDS ORDERED: PRD50T (16:26)
[2018-12-04 16:30] LABS: BASOPHILS % (AUTO) 0 % (0-10); EOSINOPHILS % (AUTO) 0 % (0-10); HEMATOCRIT 32 % (35-52); HEMOGLOBIN 10.7 G/DL (11.5-16.0); LYMPHOCYTES # (AUTO) 0.3 X 10^3 (1.0-4.0); LYMPHOCYTES % (AUTO) 3 % (12-44); MEAN CORPUSCULAR HEMOGLOBIN 32 PG (25-34); MEAN CORPUSCULAR HGB CONC 33 G/DL (32-36); MEAN CORPUSCULAR VOLUME 98 FL (80-99); MEAN PLATELET VOLUME 9.7 FL (7.4-10.4); MONOCYTES # (AUTO) 0.6 X 10^3 (0.0-1.0); MONOCYTES % (AUTO) 5 % (0-12); NEUTROPHILS # (AUTO) 9.8 X 10^3 (1.8-7.8); NEUTROPHILS % (AUTO) 92 % (42-75); PLATELET COUNT 145 10^3/uL (130-400); RED CELL DISTRIBUTION WIDTH 21.3 % (10.0-14.5); WHITE BLOOD COUNT 10.7 10^3/uL (4.3-11.0)
--- NOTE | 2018-12-04 16:34 | ED Abdominal Pain ---
General Chief Complaint: Abdominal/GI Problems Stated Complaint: CANCER PT/FEVER/VOMITING/DIARRHEA Nursing Triage Note: PT PRESENTS TO ED WITH COMPLAINTS OF N/V/D SINCE 0300 THIS AM. PT REPORTS HER MOTHER AND FATHER HAVE HAD SIMILAR S/S. PT IS CURRENTLY RECIEVING CHEMO FOR HEWINGS SARCOMA. Sepsis Screen: No Definite Risk Source of Information: Patient, Family Exam Limitations: No Limitations History of Present Illness Date Seen by Provider: Dec 04, 2018 Time Seen by Provider: 14:04 Initial Comments Here with report of nausea, vomiting, diarrhea and abdominal cramping since 3 AM this morning. Other family members in her family including her mother who is here with her have similar symptoms. Denies blood in her urine or stool. Does have some abdominal cramping. 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 She is currently on acyclovir and Levaquin for oral stomatitis. Has had fever today that is not responding to oral Tylenol. Timing/Duration: 12-24 Hours Severity/Quality: Moderate, Cramping Location: Generalized Abdomen Radiation: No Radiation Activities at Onset: None Modifying Factors: Worsens With Eating; Improves With Resting Associated Symptoms: No Back Pain, No Chest Pain; Fever/Chills, Fatigue, Nausea /Vomiting; No Shortness of Air, No Weakness Allergies and Home Medications Allergies Coded Allergies: Penicillins (Verified Allergy, Unknown, 12/04/18) amoxicillin (Verified Allergy, Unknown, 12/04/18) Home Medications Oxycodone HCl/Acetaminophen 1 Each Tablet, 1 EACH PO Q4H PRN for PAIN-MODERATE, (Reported) Patient Home Medication List Home Medication List Reviewed: Yes Review of Systems Review of Systems Constitutional: see HPI; No chills, No fever EENTM: No Symptoms Reported; No Nose Congestion, No Throat Pain Respiratory: Denies Cough, Denies Shortness of Air Cardiovascular: Denies Chest Pain, Denies Palpitations Gastrointestinal: Diarrhea, Nausea, Vomiting Genitourinary: No Symptoms Reported Musculoskeletal: joint pain, muscle pain Skin: no symptoms reported Psychiatric/Neurological: No Symptoms Reported All Other Systems Reviewed Negative Unless Noted: Yes Past Rzlwoyv-Htdbdp-Jzmpoe Hx Past Med/Social Hx: Reviewed Nursing Past Med/Soc Hx Patient Social History Alcohol Use: Denies Use Recreational Drug Use: No Smoking Status: Never a Smoker 2nd Hand Smoke Exposure: No Recent Foreign Travel: No Contact w/Someone Who Travel: No Recent Infectious Disease Expo: No Recent Hopitalizations: No Physical Abuse: No Sexual Abuse: No Mistreated: No Fear: No Seasonal Allergies Seasonal Allergies: No Past Medical History Surgeries: Yes (WISDOM TEETH, AMPUTATION OF L GREAT TOE) Amputation, Orthopedic, Tonsillectomy Respiratory: No Cardiac: No Neurological: No Genitourinary: No Gastrointestinal: No Musculoskeletal: No Endocrine: No HEENT: No Cancer: Yes (SARCOMA TO LT GREAT TOE. SARCOMA RT MEDIAL LUNG LOBE) Lung Did You Recieve Any Treatments: Yes What Type of Treatment Did You: Chemotherapy Psychosocial: No Integumentary: Yes (SARCOMA TO LT GREAT TOE) Recent Skin Changes Blood Disorders: Yes (ANEMIA) Adverse Reaction/Blood Tranf: No Family Medical History Reviewed Nursing Family Hx No Pertinent Family Hx Physical Exam Vital Signs Vital Signs - First Documented 12/04/18 16:10 Temp 100.1 Pulse 100 Resp 18 B/P (MAP) 87/62 (70) Pulse Ox 94 Capillary Refill : Less Than 3 Seconds Height/Weight/BMI Height: 5'5.00" Weight: 120lbs. oz. 54.112772zw; BMI Method:Stated General Appearance: WD/WN, no apparent distress HEENT: PERRL/EOMI, other (healing oral stomatitis noted especially on the lower lip on the right) Neck: full range of motion, supple Respiratory: lungs clear, normal breath sounds Cardiovascular: no murmur, tachycardia, other (and catheter right upper chest wall) Peripheral Pulses: 2+ Dorsalis Pedis (R), 2+ Left Dors-Pedis (L), 2+ Radial Pulses (R), 2+ Radial Pulses (L) Gastrointestinal: soft; No guarding, No rebound; tenderness (mild diffuse) Extremities: non-tender, normal inspection Back: normal inspection, no CVA tenderness, no vertebral tenderness Neurologic/Psychiatric: alert, oriented x 3 Skin: normal color, warm/dry Focused Exam Lactate Level 12/04/18 16:00: Lactic Acid Level 0.81 Lactic Acid Level Laboratory Tests Test 12/04/18 16:00 Lactic Acid Level 0.81 MMOL/L (0.50-2.00) Progress/Results/Core Measures Results/Orders Lab Results Laboratory Tests Test 12/04/18 16:00 12/04/18 16:45 3/18/19 17:25 Range/Units White Blood Count 10.7 4.3-11.0 10^3/uL Red Blood Count 3.31 L 4.35-5.85 10^6/uL Hemoglobin 10.7 L 11.5-16.0 G/DL Hematocrit 32 L 35-52 % Mean Corpuscular Volume 98 80-99 FL Mean Corpuscular Hemoglobin 32 25-34 PG Mean Corpuscular Hemoglobin Concent 33 32-36 G/DL Red Cell Distribution Width 21.3 H 10.0-14.5 % Platelet Count 145 130-400 10^3/uL Mean Platelet Volume 9.7 7.4-10.4 FL Neutrophils (%) (Auto) 92 H 42-75 % Lymphocytes (%) (Auto) 3 L 12-44 % Monocytes (%) (Auto) 5 0-12 % Eosinophils (%) (Auto) 0 0-10 % Basophils (%) (Auto) 0 0-10 % Neutrophils # (Auto) 9.8 H 1.8-7.8 X 10^3 Lymphocytes # (Auto) 0.3 L 1.0-4.0 X 10^3 Monocytes # (Auto) 0.6 0.0-1.0 X 10^3 Eosinophils # (Auto) 0.0 0.0-0.3 10^3/uL Basophils # (Auto) 0.0 0.0-0.1 10^3/uL Neutrophils % (Manual) 93 % Lymphocytes % (Manual) 1 % Monocytes % (Manual) 5 % Basophils % (Manual) 1 % Blood Morphology Comment NORMAL Sodium Level 138 135-145 MMOL/L Potassium Level 3.8 3.6-5.0 MMOL/L Chloride Level 103 98-107 MMOL/L Carbon Dioxide Level 25 21-32 MMOL/L Anion Gap 10 5-14 MMOL/L Blood Urea Nitrogen 8 7-18 MG/DL Creatinine 0.70 0.60-1.30 MG/DL Estimat Glomerular Filtration Rate > 60 BUN/Creatinine Ratio 11 Glucose Level 96 70-105 MG/DL Lactic Acid Level 0.81 0.50-2.00 MMOL/L Calcium Level 9.4 8.5-10.1 MG/DL Corrected Calcium 9.0 8.5-10.1 MG/DL Total Bilirubin 0.6 0.1-1.0 MG/DL Aspartate Amino Transf (AST/SGOT) 58 H 5-34 U/L Alanine Aminotransferase (ALT/SGPT) 86 H 0-55 U/L Alkaline Phosphatase 103 40-136 U/L Total Protein 6.5 6.4-8.2 GM/DL Albumin 4.5 3.2-4.5 GM/DL Prothrombin Time 14.9 H 12.2-14.7 SEC INR Comment 1.2 0.8-1.4 Activated Partial Thromboplast Time 32 24-35 SEC Urine Color KERRY H Urine Clarity SLIGHTLY CLOUDY Urine pH 6 5-9 Urine Specific [place] 1.020 1.016-1.022 Urine Protein 1+ H NEGATIVE Urine Glucose (UA) NEGATIVE NEGATIVE Urine Ketones 1+ H NEGATIVE Urine Nitrite NEGATIVE NEGATIVE Urine Bilirubin NEGATIVE NEGATIVE Urine Urobilinogen NORMAL NORMAL MG/DL Urine Leukocyte Esterase 1+ H NEGATIVE Urine RBC (Auto) NEGATIVE NEGATIVE Urine RBC NONE /HPF Urine WBC 2-5 /HPF Urine Squamous Epithelial Cells RARE /HPF Urine Crystals NONE /LPF Urine Bacteria TRACE /HPF Urine Casts NONE /LPF Urine Mucus LARGE H /LPF Urine Culture Indicated NO Micro Results Microbiology 12/04/18 Influenza Types A,B Antigen (VAIBHAV) - Final, Complete My Orders Orders - PEYMAN SALVADOR MD Cbc With Automated Diff (12/04/18 16:14) Comprehensive Metabolic Panel (12/04/18 16:14) Blood Culture (12/04/18 16:14) Sputum Culture (12/04/18 16:14) Urinalysis (12/04/18 16:14) Urine Culture (12/04/18 16:14) Protime With Inr (12/04/18 16:14) Partial Thromboplastin Time (12/04/18 16:14) Chest 1 View, Ap/Pa Only (12/04/18 16:14) Saline Lock/Iv-Start (12/04/18 16:14) Vital Signs Adult Sepsis Patie Q15M (12/04/18 16:14) O2 (12/04/18 16:14) Remove Rings In Anticipation O (12/04/18 16:14) Lactic Acid Analyzer (12/04/18 16:14) Influenza A And B Antigens (12/04/18 16:14) Ondansetron Injection (Zofran Injectio (12/04/18 16:15) Ns Iv 1000 Ml (Sodium Chloride 0.9%) (12/04/18 16:14) Hyoscyamine Sl Tablet (Levsin Sl Tablet) (12/04/18 16:15) Manual Differential (12/04/18 16:00) Ketorolac Injection (Toradol Injection) (12/04/18 17:35) Medications Given in ED Current Medications Medications Dose Ordered Sig/Enmanuel Route Start Time Stop Time Status Last Admin Dose Admin Hyoscyamine Sulfate 0.125 mg ONCE ONCE SL 12/04/18 16:15 12/04/18 16:16 DC 12/04/18 16:30 0.125 MG Ondansetron HCl 4 mg ONCE ONCE IVP 12/04/18 16:15 12/04/18 16:16 DC 12/04/18 16:30 4 MG Vital Signs/I&O 12/04/18 16:10 Temp 100.1 Pulse 100 Resp 18 B/P (MAP) 87/62 (70) Pulse Ox 94 Blood Pressure Mean: 70 Progress Progress Note : Progress Note Seen and evaluated. Rodriguez catheter accessed. Labs, blood cultures, lactic acid , UA, chest x-ray, influenza screen, normal saline 1 L bolus, Zofran 4 mg IV and Levsin 0.125 mg by mouth ordered. Monitor patient. 1750: Patient did receive Toradol 15 mg IV for bodyaches. Labs reviewed as well as chest x-ray and UA. A significant findings overall. Patient is able tolerate sips of fluid. She has ondansetron at home. She will continue home medications. Discharge home with return precautions. Patient verbalize understanding instructions and agreement with plan. She will continue the antiviral and Levaquin as previously prescribed. Diagnostic Imaging Diagonstic Imaging: Xray Plain Films/CT/US/NM/MRI: chest Comments [facility] [place], [place] NAME: BILL KAHN Stephanie [facility] REC#: [id number] PT STATUS: REG ER : 1995 PHYSICIAN: PEYMAN SALVADOR MD ADMIT DATE: 12/04/18/ER Draft Date of Exam:12/04/18 CHEST 1 VIEW, AP/PA ONLY INDICATION: Fever. COMPARISON: None available. FINDINGS: Right IJ dual-lumen hemodialysis catheter has tip in the lower SVC near the superior cavoatrial junction. Visualized lungs are clear. Posterior lower lobes are poorly evaluated by portable radiography. No pleural effusion or pneumothorax. The heart is normal in size. Normal mediastinal contours. IMPRESSION: No acute process by portable radiography. Dictated on workstation # [id number] Dict: 12/04/18 171 Trans: 12/04/184 [id number] Interpreted by: TUAN KONG MD Electronically signed by: Departure Impression Primary Impression: Nausea and vomiting Qualified Codes: R11.2 - Nausea with vomiting, unspecified Additional Impression: Generalized abdominal pain Disposition: HOME, SELF-CARE Condition: Stable Departure-Patient Inst. Decision time for Depature: 17:54 Referrals: ENRRIQUE MORA MD (PCP/Family) Primary Care Physician Patient Instructions: Acute Abdomen (Belly Pain), Adult (DC), Nausea and Vomiting, Adult (DC) Add. Discharge Instructions: All discharge instructions reviewed with patient and/or family. Voiced understanding. Clear liquid diet for the next 12-24 hours and then advance as tolerated. Start with crackers, toast, surgeon low. Take small sips frequently. You may take Tylenol/acetaminophen 650 mg every 6 hours as needed for fever or pain. Follow- up with your DrTeresita in one to 2 days for recheck and further evaluation. Return for worsening, fever, vomiting, weakness, breathing problems or other concerns as needed. PEYMAN SALVADOR MD Dec 04, 2018 16:34
[2018-12-04 16:52] LABS: ALANINE AMINOTRANSFERASE 86 U/L (0-55); ALBUMIN 4.5 GM/DL (3.2-4.5); ALKALINE PHOSPHATASE 103 U/L (40-136); BILIRUBIN,TOTAL 0.6 MG/DL (0.1-1.0); BUN/CREATININE RATIO 11; CALCIUM 9.4 MG/DL (8.5-10.1); CARBON DIOXIDE 25 MMOL/L (21-32); CHLORIDE 103 MMOL/L (98-107); GFR ESTIMATED > 60; GLUCOSE 96 MG/DL (70-105); POTASSIUM 3.8 MMOL/L (3.6-5.0); SODIUM 138 MMOL/L (135-145); TOTAL PROTEIN 6.5 GM/DL (6.4-8.2)
[2018-12-04 17:03] LABS: BASOPHILS % (MANUAL) 1 %; LYMPHOCYTES % (MANUAL) 1 %; MONOCYTES % (MANUAL) 5 %; NEUTROPHILS % (MANUAL) 93 %; RBC MORPH NORMAL
[2018-12-04 17:05] LABS: INR 1.2 (0.8-1.4); PROTHROMBIN TIME PATIENT 14.9 SEC (12.2-14.7)
--- NOTE | 2018-12-04 17:15 | Diagnostic Imaging Report ---
INDICATION: Fever. COMPARISON: None available. FINDINGS: Right IJ dual-lumen hemodialysis catheter has tip in the lower SVC near the superior cavoatrial junction. Visualized lungs are clear. Posterior lower lobes are poorly evaluated by portable radiography. No pleural effusion or pneumothorax. The heart is normal in size. Normal mediastinal contours. IMPRESSION: No acute process by portable radiography. Dictated by: Dictated on workstation # [id number]
[2018-12-04 17:34] LABS: BILIRUBIN,URINE NEGATIVE (NEGATIVE); CLARITY,URINE SLIGHTLY CLOUDY; COLOR,URINE AMBER; GLUCOSE, URINE (UA) NEGATIVE (NEGATIVE); KETONES,URINE 1+ (NEGATIVE); LEUKOCYTE ESTERASE ,URINE 1+ (NEGATIVE); NITRITE,URINE NEGATIVE (NEGATIVE); PH,URINE 6 (5-9); PROTEIN,URINE 1+ (NEGATIVE); UROBILINOGEN,URINE NORMAL (NORMAL)
[2018-12-04] MEDS ORDERED: KETOROLAC 30 MG/ML VIAL IVP STA (17:35)
[2018-12-04 17:42] LABS: BACTERIA,URINE TRACE /HPF; SQUAMOUS EPITHELIAL CELL,UR RARE /HPF
[2018-12-04 18:15] VITALS: BP 97/63
== END 2018-12-04 18:15 | disposition home or self-care (01) ==
LOC: EDUNIT# 15:39 → ER 15:40
DX: R11.2 Nausea with vomiting, unspecified (principal); R10.84 Generalized abdominal pain; C40.32 Malignant neoplasm of short bones of left lower limb; C78.01 Secondary malignant neoplasm of right lung; D64.9 Anemia, unspecified; Z88.0 Allergy status to penicillin; Z90.89 Acquired absence of other organs; Z98.890 Other specified postprocedural states; Z89.412 Acquired absence of left great toe; Z88.1 Allergy status to other antibiotic agents; Z92.21 Personal history of antineoplastic chemotherapy
CPT/HCPCS: 36415; 71045; 80053; 81000; 83605; 85007; 85027; 85610; 85730; 87040; 87088; 87804